=== PATIENT | female | born 1990 | race Two or more races ===

== ENCOUNTER 2018-05-22 14:05 | Emergency (ER) | payer BC ==
[~2018-05-22] VITALS: Ht 162.6 cm; Wt 68.0 kg
[2018-05-22] MEDS ORDERED: BUTORPHANOL 2 MG/ML VIAL. IV ONE (15:00)
[2018-05-22] MEDS ORDERED: diphenhydrAMINE 50 MG/ML VIAL IVP ONE (15:00)
[2018-05-22] MEDS ORDERED: METOCLOPRAMIDE HCL 10 MG/2 ML VIAL. IV ONE (15:00)
[2018-05-22] MEDS ORDERED: DEXAMETHASONE SOD PHOS 20 MG/5 ML VIAL. IV ONE (15:00)
[2018-05-22] MEDS ORDERED: IV NORMAL SALINE 500ML BAG 500 ML IV ONE (15:00)
[2018-05-22] MEDS ORDERED: SUMAtriptan SUCC 6 MG/0.5 ML VIAL. SQ ONE (15:00)
--- NOTE | 2018-05-22 16:08 | RAD ---
CT of the head without contrast, 05/22/2018: HISTORY: Worst headache ever The ventricles are within normal limits in size. There is no shift of the midline structures. There is no evidence of acute intracranial hemorrhage or mass effect. IMPRESSION: No acute intracranial abnormality is detected. RS Compliance Statement: One or more of the following individualized dose reduction techniques were utilized for this examination: 1. Automated exposure control 2. Adjustment of the mA and/or kV according to patient size 3. Use of iterative reconstruction technique Electronically signed by: Cedric Ortega MD (05/22/2018 4:03 PM) [facility]
--- NOTE | 2018-05-22 16:42 | PHYS DOC ---
Past Medical History Past Medical History: Hypothyroid Past Surgical History: No Surgical History Alcohol Use: None Drug Use: None Adult General Chief Complaint Chief Complaint: HEADACHE HPI HPI Patient is a 28-year-old female who presents with complaint of severe headache for the last 5 days. Patient states that the headache is waxed and waned and currently she rates the pain at a 7-8 out of 10. She states that at times sits between a 9 and 10 out of 10. She states that she has had some nausea and vomiting as well as photophobia. She also complains of phonophobia. She states that she has some ongoing upper back and neck pain. She describes the headache as throbbing in nature. Review of Systems Review of Systems Constitutional: Denies fever or chills [] Eyes: Denies change in visual acuity, redness, or eye pain [] Respiratory: Denies cough or shortness of breath [] Cardiovascular: No additional information not addressed in HPI [] GI: Denies abdominal pain. Complains of nausea and vomiting. [] Musculoskeletal: Complains of neck and upper back pain [] Neurologic: [place] of headache without focal weakness or sensory changes [] All other systems were reviewed and found to be within normal limits, except as documented in this note. Current Medications Current Medications Current Medications Medications (Trade) Dose Ordered Sig/[facility] Start Time Stop Time Status Last Admin Dose Admin Butorphanol Tartrate (Stadol) 1 mg 1X ONCE 05/22/18 15:00 05/22/18 15:12 DC 05/22/18 15:39 1 MG Dexamethasone Sodium Phosphate (Decadron) 10 mg 1X ONCE 05/22/18 15:00 05/22/18 15:12 DC 05/22/18 15:36 10 MG Diphenhydramine HCl (Benadryl) 25 mg 1X ONCE 05/22/18 15:00 05/22/18 15:12 DC 05/22/18 15:33 25 MG Metoclopramide HCl (Reglan Vial) 10 mg 1X ONCE 05/22/18 15:00 05/22/18 15:12 DC 05/22/18 15:34 10 MG Sodium Chloride 500 ml @ 500 mls/hr 1X ONCE 05/22/18 15:00 05/22/18 15:59 DC 05/22/18 15:35 500 MLS/HR Sumatriptan Succinate (Imitrex) 6 mg 1X ONCE 05/22/18 15:00 05/22/18 15:12 DC 05/22/18 15:41 6 MG Allergies Allergies Allergies Coded Allergies Type Severity Reaction Last Updated Verified No Known Drug Allergies 05/22/18 No Physical Exam Physical Exam Constitutional: Well developed, well nourished, in mild distress. [] HENT: Normocephalic, atraumatic, bilateral external ears normal, oropharynx moist, no oral exudates, nose normal. [] Eyes: PERRLA, EOMI, conjunctiva normal, no discharge. [] Neck: Normal range of motion, with bilateral suboccipital muscle tenderness and palpable spasm. [] Cardiovascular: Regular rate and rhythm[] Lungs & Thorax: Bilateral breath sounds clear to auscultation [] Abdomen: Bowel sounds normal, soft, no tenderness. [] Skin: Warm, dry, no erythema, no rash. [] Extremities: No tenderness, no cyanosis, no clubbing, ROM intact, no edema. [] Neurologic: Alert and oriented X 3, no focal deficits noted. [] Current Patient Data Vital Signs Vital Signs Date Time Temp Pulse Resp B/P (MAP) Pulse Ox O2 Delivery O2 Flow Rate FiO2 05/22/18 14:34 97.9 74 18 127/79 (95) 98 Room Air 97.9 Lab Values Laboratory Tests Test 05/22/18 14:30 POC Urine HCG, Qualitative Hcg negative (Negative) EKG EKG [] Radiology/Procedures Radiology/Procedures [] Impressions: CT of the head without contrast, 05/22/2018: HISTORY: Worst headache ever The ventricles are within normal limits in size. There is no shift of the midline structures. There is no evidence of acute intracranial hemorrhage or mass effect. IMPRESSION: No acute intracranial abnormality is detected. PQRS Compliance Statement: One or more of the following individualized dose reduction techniques were utilized for this examination: 1. Automated exposure control 2. Adjustment of the mA and/or kV according to patient size 3. Use of iterative reconstruction technique Electronically signed by: Cedirc Ortega MD (05/22/2018 4:03 PM) [facility] Course & Med Decision Making Course & Med Decision Making Pertinent Labs and Imaging studies reviewed. (See chart for details) [] Dragon Disclaimer Dragon Disclaimer This electronic medical record was generated, in whole or in part, using a voice recognition dictation system. Departure Departure Impression: Primary Impression: Migraine headache Disposition: HOME, SELF-CARE Condition: STABLE Referrals: UNKNOWN PCP NAME (PCP) Patient Instructions: Migraine Headache Scripts Ondansetron Hcl (ZOFRAN) 4 Mg Tablet 4 MG PO PRN TID PRN for NAUSEA, #15 nausea/vomiting Prov: MARY STEPHEN Jr. DO 05/22/18 Oxycodone/Apap 5-325 (PERCOCET 5-325 MG TABLET ) 1 Each Tablet 1 EACH PO Q6HRS PRN for PAIN, #12 TAB pain Prov: MARY STEPHEN Jr. DO 05/22/18 Problem Qualifiers Primary Impression: Migraine headache Migraine type: without aura Status migrainosus presence: with status migrainosus Intractability: not intractable Qualified Codes: G43.001 - Migraine without aura, not intractable, with status migrainosus AMRY STEPHEN Jr. DO May 22, 2018 16:42
[2018-05-22] MEDS ORDERED: ONDA4TAB7 PO (17:16)
[2018-05-22] MEDS ORDERED: OXYC1TAB15 PO (17:16)
[2018-05-22 17:18] VITALS: BP 113/64
[2018-05-22] MEDS ORDERED: SUMA100T3 PO (17:20)
== END 2018-05-22 17:31 | disposition home or self-care (01) ==
LOC: ER 14:05
DX: G43.001 Migraine without aura, not intractable, with status migrainosus (principal); R11.2 Nausea with vomiting, unspecified; H53.149 Visual discomfort, unspecified; M54.2 Cervicalgia; M54.6 Pain in thoracic spine; E03.9 Hypothyroidism, unspecified
CPT/HCPCS: 70450; 81025; 96361; 96372; 96374; 96375; 99284; J1100; J1200; J2765; J3030; J7040

== ENCOUNTER → 2020-01-25 | Outpatient (CLI) | payer BC ==
[~2020-01-25] MED LIST: ONDA4TAB7 PO; OXYC1TAB15 PO; SUMA100T3 PO
--- NOTE | 2020-01-25 18:04 | RAD ---
EXAM: ULTRASOUND-GUIDED THYROID FINE-NEEDLE ASPIRATION and core needle biopsy. HISTORY: Thyroid nodule. Ultrasound-guided biopsy is requested. FINDINGS: The procedure along with its risks and benefits were explained to the patient. They agreed to proceed. A timeout procedure was performed. Sonographic images of the thyroid gland were obtained. The solid target nodule in the right thyroid lobe was adequately visualized for biopsy. It is 1.1 cm long by 0.7 cm tall and 0.7 cm wide. The overlying skin was sterilely prepped and infiltrated with 1% lidocaine for local anesthesia. Under ultrasound guidance, 8 biopsy samples were obtained using a combination of five 25-gauge needles, two 18 gauge temno core and one rotex screw core biopsy. These were hand delivered to pathology who determined them adequate for diagnosis. A sterile dressing was placed. There were no immediate complications. IMPRESSION: 1. Successful ultrasound-guided fine-needle aspiration and core biopsy of the right thyroid nodule. Electronically signed by: Thiago Braga MD (01/25/2020 6:01 PM) [id number]
--- NOTE | 2020-01-29 16:08 | PATHOLOGY ---
Note [facility] Accession Number: [id number] TESTS RESULT FLAG UNITS REF RANGE LAB Clinician Provided Cytology Information No. of containers..01 Other (Miscellaneous) Source: R. THYROID DIAGNOSIS: R. THYROID INCONCLUSIVE. BETHESDA CATEGORY III. ATYPIA OF UNDETERMINED SIGNIFICANCE. RED BLOOD CELLS ARE PRESENT. THIS INTERPRETATION INCLUDES EVALUATION OF A CELL BLOCK. COMMENT, CELLULAR ASPIRATE WITH THYROID FOLLICULAR CELLS SOME WITH ATYPIA INTRACYTOPLASMIC INCLUSION AND OCCASIONAL GROVES. THE VIAL WILL BE SENT FOR MOLECULAR TESTING AND AN ADDITIONAL REPORT WILL FOLLOW. THIS CASE IS ALSO REVIEWED BY DR. CARLOS Storm. Pathologist ICD10: 02 R89.6 Signed out by: Juan M Oliver MD, Pathologist NPI- [id number] Performed by: Gretta Doss, Director Of Vocational Training ([facility]) Gross description: 01 30 ML, DOMINGO STRICKLAND, [id number] /LCS 01/28/2020 0816 Local FLAG LEGEND: L-Low Normal,H-High Normal,LL-Alert Low,HH-Alert High <-Panic Low,>-Panic High,A-Abnormal,AA-Critical Abnormal Performed at: [facility] [address] [place] [address] Gvaino Barnett MD, JO ANN [facility] [address] [place] [id number] Vince Juarez MD, Specimen Comment: A courtesy copy of this report has been sent to [phone] Specimen Comment: [id number], Specimen Comment: [id number] Specimen Comment: Report sent to ,DR BAIRES / DR PLATT Performed at: [address], [place], [place] [id number] MD Gavino Barnett MD Phone: [phone]
== END ==
LOC: US 12:39
PROVIDERS: ATTEND Surgery
DX: E04.1 Nontoxic single thyroid nodule (principal); E03.9 Hypothyroidism, unspecified; R89.6 Abnormal cytological findings in specimens from other organs, systems and tissues; Z79.899 Other long term (current) drug therapy
CPT/HCPCS: 10005; 60100; 60300; 76942

== ENCOUNTER → 2020-05-02 | Outpatient (CLI) | payer BC ==
[~2020-05-02] MED LIST changes: +CALC0.25 PO; +CALC500T31 PO; +CHOL40003 PO; +HYDR-2761 PO; +LEVO100T5 PO; +LEVO25TA4 PO; +MAGN400T44 PO
--- NOTE | 2020-05-03 14:37 | NUR ---
IP: Attempted to contact pt concerning COVID results. No answer. Left a voicemail to return the call. Also attempted to contact Dr. Figueroa. He is not continuity manager and will follow up on Tuesday.
--- NOTE | 2020-05-05 11:22 | NUR ---
Patient tested positive for Covid 19 @ [facility] with results back on 04/10/20. Patient only had mild non-respiratory symptoms starting 4 days prior to testing. Per phase III guidelines okay to proceed with surgery in 4 weeks. All info also verified with Krystal Garcia, surgical director. Spoke with patient and Amy at Dr Figueroa's office regarding the above. Also, called [facility] for copy of the result dated 04/10/20.
== END ==
LOC: LAB 10:15
PROVIDERS: ATTEND Surgery
DX: Z01.812 Encounter for preprocedural laboratory examination (principal); U07.1 COVID-19; E04.1 Nontoxic single thyroid nodule
CPT/HCPCS: U0003

== ENCOUNTER 2020-05-07 06:20 | Inpatient (IN) | payer BC ==
[2020-05-07] VITALS (9 sets, daily range): BP systolic 117–142; BP diastolic 71–86
[~2020-05-07] VITALS: Ht 160 cm; Wt 81.6 kg
[~2020-05-07 06:20] MED LIST changes: -CALC0.25 PO; -CALC500T31 PO; -HYDR-2761 PO; -LEVO100T5 PO; -MAGN400T44 PO
[2020-05-07] MEDS ORDERED: HYDROmorphone 2 MG/ML VIAL IV PRN (07:00)
[2020-05-07] MEDS ORDERED: ONDANSETRON PF 4 MG/2 ML VIAL. IV PRN (07:00)
[2020-05-07] MEDS ORDERED: IV RINGERS,LACTATED 1000ML 1,000 ML IV SCH (07:00)
[2020-05-07] MEDS ORDERED: fentaNYL PF VIAL 100 MCG/2 ML VIAL IV PRN (07:00)
[2020-05-07] MEDS ORDERED: ONDANSETRON PF 4 MG/2 ML VIAL. ONE (07:21)
[2020-05-07] MEDS ORDERED: DEXAMETHASONE SOD PHOS 4 MG/ML VIAL ONE (07:21)
[2020-05-07] MEDS ORDERED: LIDOCAINE 2% PF 5 ML VIAL. ONE (07:21)
[2020-05-07] MEDS ORDERED: PROPOFOL 10 MG/ML (20ML) VIAL. IV ONE (07:21)
[2020-05-07] MEDS ORDERED: SUCCINYLCHOLINE 200 MG/10 ML VIAL. ONE (07:22)
[2020-05-07] MEDS ORDERED: REMIFENTANIL 2 MG VIAL. IV ONE (07:23)
[2020-05-07] MEDS ORDERED: 0.9 % SODIUM CHLORIDE 20 ML VIAL. IJ ONE ×2 (07:24)
[2020-05-07] MEDS ORDERED: MIDAZOLAM HCL/PF 2 MG/2 ML VIAL. ONE (07:30)
[2020-05-07] MEDS ORDERED: fentaNYL PF VIAL 100 MCG/2 ML VIAL ONE ×2 (07:30→10:46)
[2020-05-07] MEDS ORDERED: SURGICEL HEMOSTAT 4X8 EACH. ONE (09:41)
[2020-05-07] MEDS ORDERED: SEVOFLURANE > 120 MINUTES. IH ONE (10:18)
--- NOTE | 2020-05-07 10:28 | PDOC4 ---
Operative Note Operative Note Operative Note: Preoperative Diagnosis: Right thyroid nodule Postoperative Diagnosis: Same Procedure: Total thyroidectomy with central compartment dissection Surgeon: Henry Fisheries Biologist: Michael Lizama Anesthesia: General EBL: 50 mL Specimen: Total thyroid to pathology, paratracheal and central compartment nodes to pathology Drains: None Complications: None Indication: The patient is a 30-year-old female who was referred with a right thyroid nodule. 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 The plan is to proceed with a right thyroidectomy with frozen section for confirmation and a probable total t hyroidectomy. The details and risks of surgery were discussed with the patient. The risks include bleeding, infection, recurrent laryngeal nerve injury, hypoparathyroidism, pain, voice changes, anesthetic risk, potential need for additional surgery procedure. She understands and would like to proceed. Description: The patient was taken to the operating room and placed supine in the operating table. General anesthesia was performed. The Nims device was assembled and the anterior neck was prepped and draped in a standard surgical manner. A curved collar incision was made 2 fingerbreadths above the sternal notch. Cautery dissection was carried down to the platysma. The platysma was opened and the [place] retractor was used for the remainder of the case. The strap muscle fascia was divided in the midline. We began mobilizing the right thyroid lobe freeing it away from the strap muscles. The vessels of the superior pole were dissected free, ligated with 2-0 Vicryl and divided. The harmonic scalpel assisted with some of this dissection. We were able to identify a glandular structure in the superior aspect of the dissection that seemed consistent with a parathyroid gland. This was left in situ. In a similar manner inferior polar vessels were ligated with 3-0 Vicryl and divided. We then mobilized the remainder of the thyroid lobe in a lateral to medial fashion. 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 The recurrent laryngeal nerve was identified and stimulated appropriately with the Nims device. The nerve was protected as we freed up the remainder of the thyroid lobe including the attachments to the trachea. The lobe and isthmus were then fully excised with a stitch marking the superior pole. 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 There were some central compartment lymph nodes and one paratracheal lymph node that were visible. These were sequentially harvested and sent as specimen. We then directed our attention to the left thyroid lobe. In a similar manner the strap muscles were freed from the thyroid gland. The superior and inferior polar vessels were taken down. The recurrent laryngeal nerve was identified and stimulated appropriately. There was a vessel close to the nerve that was ligated with 3-0 Vicryl, and care was taken to ensure that the nerve remained intact. The remainder of the thyroid attachments were divided and the lobe was sent to pathology. Hemostasis was good. The strap muscle fascia was approximated in the midline with 3-0 Vicryl. The platysma was reapproximated with 3-0 Vicryl. The skin was closed with 4-0 Monocryl and a sterile dressing was applied. The patient tolerated the procedure well and was sent to the recovery room in stable condition. At the end of the case all counts were correct. MICHAEL BAIRES MD May 07, 2020 10:28
[2020-05-07] MEDS: IV NORMAL SALINE 1000ML BAG 1,000 ML IV SCH (10:30)
[2020-05-07] MEDS ORDERED: ONDANSETRON PF 4 MG/2 ML VIAL. IVP PRN (10:30)
[2020-05-07] MEDS ORDERED: oxyCODONE/APAP 5/325 1 TAB TABLET PO PRN ×2 (10:30)
[2020-05-07] MEDS ORDERED: NALOXONE 0.4 MG/ML VIAL. IV PRN (10:30)
[2020-05-07] MEDS ORDERED: 0.9 % SODIUM CHLORIDE 10 ML DISP.SYRIN. IV PRN (10:30)
[2020-05-07] MEDS ORDERED: PROCHLORPERAZINE 10 MG/2 ML VIAL. ONE (10:42)
[2020-05-07] MEDS: PROCHLORPERAZINE 10 MG/2 ML VIAL. IV PRN ×2 (10:45→11:17)
[2020-05-07] MEDS: fentaNYL PF VIAL 100 MCG/2 ML VIAL IV PRN ×2 (10:47→11:08)
[2020-05-07] MEDS ORDERED: MORPHINE SULFATE 2 MG/ML VIAL. ONE (11:20)
[2020-05-07] MEDS: MORPHINE SULFATE 2 MG/ML VIAL. IV PRN ×2 (11:22→11:48)
[2020-05-07] MEDS: IV 1/2 NORMAL SALINE 1,000 ML IV SCH ×2 (15:23→23:00)
[2020-05-07] MEDS: HYDROmorphone 2 MG/ML VIAL IV PRN (15:23)
[2020-05-07] MEDS: HYDROcodone/APAP 5/325MG 1 TAB TABLET PO PRN ×2 (17:32→21:34)
[2020-05-07] MEDS ORDERED: diphenhydrAMINE HCL 25 MG CAPSULE PO ONE (18:30)
[2020-05-07] MEDS: ONDANSETRON PF 4 MG/2 ML VIAL. IVP PRN (18:39)
[2020-05-08] MEDS: HYDROmorphone 2 MG/ML VIAL IV PRN (02:14)
[2020-05-08 02:41] VITALS: BP 110/78
[2020-05-08] MEDS: HYDROcodone/APAP 5/325MG 1 TAB TABLET PO PRN ×3 (05:06→16:37)
[2020-05-08] MEDS: LEVOTHYROXINE 100 MCG TABLET PO SCH (05:06)
[2020-05-08 07:00] VITALS: BP 96/45
[2020-05-08] MEDS: CHOLECALCIFEROL (VITAMIN D3) 1,000 UNIT TABLET PO SCH (08:18)
[2020-05-08] MEDS: ONDANSETRON PF 4 MG/2 ML VIAL. IVP PRN ×2 (08:20→15:42)
--- NOTE | 2020-05-08 09:34 | NUR ---
SW following. Discussed with RN, pt from home, room air. Pt had surgery 05/07/20. RN advised no SW needs at this time, and anticipates pt will discharge home today with self care. SW will continue to follow.
--- NOTE | 2020-05-08 09:56 | PDOC ---
ZENY BURR OPERATIONS TRAINER 05/08/20 0956: SURGICAL PROGRESS NOTE DATE: 05/08/20 TIME: 09:53 Subjective throat pretty sore taking some liquids this AM Vital Signs Vital Signs Date Time Temp Pulse Resp B/P (MAP) Pulse Ox O2 Delivery O2 Flow Rate FiO2 05/08/20 07:00 97.9 76 16 96/45 (62) 96 Room Air 97.9 05/07/20 10:26 6 I&O Intake and Output 05/08/20 07:00 Intake Total 1720 ml Output Total 80 ml Balance 1640 ml Intake Oral 120 ml IV Total 1600 ml Output Urine Total 10 ml Emesis 20 ml Estimated Blood Loss 50 ml # Voids 7 General: Alert, Oriented X3, Cooperative HEENT: Other (minimal swelling, some bleeding under dressing noted, voice hoarse ) Labs Laboratory Tests Test 05/07/20 06:43 05/08/20 07:51 Bedside Urine HCG, Qualitative Hcg negative (Negative) Ionized Calcium 0.91 mmol/L (1.13-1.32) Laboratory Tests Test 05/08/20 07:51 Ionized Calcium 0.91 mmol/L (1.13-1.32) Assessment/Plan s/p total thyroidectomy slowly advance diet ca low, will add ca supplement fluids Justicifation of Admission Dx: Justifications for Admission: Justification of Admission Dx: Yes Comments: thyroid nodule ELLA BAIRES MD 05/08/20 1254: SURGICAL PROGRESS NOTE Assessment/Plan Agree with above ZENY BURR APRN May 08, 2020 09:56 ELLA BAIRES MD May 08, 2020 12:54
[2020-05-08] MEDS ORDERED: HYDR-2761 PO (09:58)
--- NOTE | 2020-05-08 10:02 | DISCH ---
DISCHARGE INSTRUCTIONS Condition on Discharge Condition on Discharge: Stable Activity After Discharge Activity Instructions for Disc: Resume previous activity Bathing Instructions: Shower-keep dressing dry Diet after Discharge Diet after Discharge: Regular Wound Incision Care Wound/Incision Care: Keep wound/cast CDI, Do not change dressing Contacting the after DC Call your doctor for: Concerns you may have Follow-Up Follow up with: Dr Figueroa 2 weeks, call to schedule [phone] ZENY BURR APRN May 08, 2020 10:02
[2020-05-08] MEDS: IV NORMAL SALINE 1000ML BAG 1,000 ML IV SCH (10:30)
[2020-05-08 11:00] VITALS: BP 102/52
[2020-05-08] MEDS: IV 1/2 NORMAL SALINE 1,000 ML IV SCH (11:30)
[2020-05-08] MEDS: CALCIUM CARBONATE 500 MG TABLET PO SCH ×2 (12:14→18:20)
[2020-05-08 15:00] VITALS: BP 118/77
[2020-05-08] MEDS ORDERED: CALCIUM GLUCONATE 2,000 MG in IV NORMAL SALINE 100ML 100 ML IV ONE (16:30)
[2020-05-08 16:48] LABS: CREATININE 0.8 mg/dL (0.6-1.0); GFR 83.1; POTASSIUM 3.1 mmol/L (3.5-5.1)
[2020-05-08] MEDS: NORMAL SALINE IV SCH (16:48)
[2020-05-08] MEDS: CALCIUM GLUCONATE IV SCH (16:48)
[2020-05-08 16:52] LABS: PHOSPHORUS 5.7 mg/dL (2.6-4.7)
[2020-05-08 19:00] VITALS: BP 115/73
--- NOTE | 2020-05-08 19:33 | NUR ---
Dr. Figueroa was paged and notified about patient complain of numbness and tingling of both hand and fingers, and numbness on face. Dr. Figueroa called back and ordered received. Dr. Landa was consulted.
[2020-05-08] MEDS: diphenhydrAMINE HCL 25 MG CAPSULE PO PRN (20:15)
[2020-05-08 23:15] VITALS: BP 109/52
[2020-05-09 03:00] VITALS: BP 114/70
[2020-05-09] MEDS: CALCIUM GLUCONATE IV SCH ×2 (05:54→19:54)
[2020-05-09] MEDS: LEVOTHYROXINE 100 MCG TABLET PO SCH (05:54)
[2020-05-09] MEDS: NORMAL SALINE IV SCH ×2 (05:54→19:54)
[2020-05-09 07:00] VITALS: BP 149/90
[2020-05-09] MEDS: HYDROcodone/APAP 5/325MG 1 TAB TABLET PO PRN ×2 (07:40→19:11)
--- NOTE | 2020-05-09 09:45 | NUR ---
SW following. Discussed with RN, pt from home, room air, clear liquid diet. RN advised no SW needs and anticipates possible discharge home with self care today. SW will continue to follow.
[2020-05-09] MEDS: CALCIUM CARBONATE 500 MG TABLET PO SCH ×3 (09:54→17:20)
[2020-05-09] MEDS: CHOLECALCIFEROL (VITAMIN D3) 1,000 UNIT TABLET PO SCH (09:54)
--- NOTE | 2020-05-09 10:10 | PDOC ---
ZENY BURR PATTERNMAKER P[employer]ER [employer] 05/09/20 1010: SURGICAL PROGRESS NOTE DATE: 05/09/20 TIME: 10:08 Subjective numbness better, still some tingling throat sore eating ok , small bites Vital Signs Vital Signs Date Time Temp Pulse Resp B/P (MAP) Pulse Ox O2 Delivery O2 Flow Rate FiO2 05/09/20 09:54 Room Air 05/09/20 07:00 98.7 73 18 149/90 (109) 97 98.7 05/08/20 08:05 6.0 I&O Intake and Output 05/09/20 07:00 Intake Total 2410 ml Balance 2410 ml Intake Oral 610 ml IV Total 900 ml Other 900 ml # Voids 1 General: Alert, Oriented X3, Cooperative HEENT: Other (some mild swelling to neck, incision intact) Labs Laboratory Tests Test 05/08/20 07:51 05/08/20 16:30 05/09/20 06:40 Ionized Calcium 0.91 mmol/L (1.13-1.32) 0.87 mmol/L (1.13-1.32) 1.01 mmol/L (1.13-1.32) Sodium Level 140 mmol/L (136-145) Potassium Level 3.1 mmol/L (3.5-5.1) Chloride Level 100 mmol/L (98-107) Carbon Dioxide Level 29 mmol/L (21-32) Anion Gap 11 (6-14) Blood Urea Nitrogen 8 mg/dL (7-20) Creatinine 0.8 mg/dL (0.6-1.0) Estimated GFR (Cockcroft-Gault) 83.1 Glucose Level 102 mg/dL (70-99) Calcium Level 7.0 mg/dL (8.5-10.1) Phosphorus Level 5.7 mg/dL (2.6-4.7) Laboratory Tests Test 05/08/20 16:30 05/09/20 06:40 Sodium Level 140 mmol/L (136-145) Potassium Level 3.1 mmol/L (3.5-5.1) Chloride Level 100 mmol/L (98-107) Carbon Dioxide Level 29 mmol/L (21-32) Anion Gap 11 (6-14) Blood Urea Nitrogen 8 mg/dL (7-20) Creatinine 0.8 mg/dL (0.6-1.0) Estimated GFR (Cockcroft-Gault) 83.1 Glucose Level 102 mg/dL (70-99) Calcium Level 7.0 mg/dL (8.5-10.1) Ionized Calcium 0.87 mmol/L (1.13-1.32) 1.01 mmol/L (1.13-1.32) Phosphorus Level 5.7 mg/dL (2.6-4.7) Assessment/Plan await neph consult labs reviewed Justicifation of Admission Dx: Justifications for Admission: Justification of Admission Dx: Yes ELLA BAIRES MD 05/09/20 1354: SURGICAL PROGRESS NOTE Assessment/Plan agree with above ZENY BURR APRN May 09, 2020 10:10 ELLA BAIRES MD May 09, 2020 13:54
[2020-05-09] MEDS: IV NORMAL SALINE 1000ML BAG 1,000 ML IV SCH (10:30)
[2020-05-09 10:42] VITALS: BP 135/84
[2020-05-09] MEDS: IV 1/2 NORMAL SALINE 1,000 ML IV SCH ×2 (12:30)
[2020-05-09 14:40] VITALS: BP 141/69
[2020-05-09] MEDS ORDERED: POTASSIUM CHLORIDE 20 MEQ TABLET.ER. PO ONE (16:15)
--- NOTE | 2020-05-09 16:21 | PDOC2 ---
CONSULT Date of Consult Date of Consult DATE: 05/09/20 TIME: 16:15 Reason for Consult Reason for Consult: LOW CA Referring Physician Referring Physician: VIRY Identification/Chief Complaint Chief Complaint SPASMS Source Source: Chart review, Patient History of Present Illness Reason for Visit: THIS IS A 30 YR OLD WITH A THYROID NODULE. 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 SUBSEQUENTLY UNDERWENT A TOTAL THYROIDECTOMY. POST OP SHE DEVELOPED NUMBNESS AND CRAMPING OF HER HANDS. NOTED TO BE HYPOCALCEMIC WITH IONIZED CA OF 0.91 AND SERUM CA OF 7.0. ALSO NOTED TO HAVE LOW K Past Surgical History Past Surgical History THYROIDECTOMY Family History Family History: Hypertension Social History No ALCOHOL: none Drugs: None Lives: with Family Current Medications Current Medications Current Medications Ondansetron HCl (Zofran) 4 mg PRN Q6HRS PRN IV NAUSEA/VOMITING; Start 05/07/20 at 07:00; Stop 05/08/20 at 06:59; Status DC Fentanyl Citrate (Fentanyl 2ml Vial) 25 mcg PRN Q5MIN PRN IV MILD PAIN 1-3; Start 05/07/20 at 07:00; Stop 05/08/20 at 06:59; Status DC Fentanyl Citrate (Fentanyl 2ml Vial) 50 mcg PRN Q5MIN PRN IV MODERATE TO SEVERE PAIN Last administered on 05/07/20at 11:08; Start 05/07/20 at 07:00; Stop 05/08/20 at 06:59; Status DC Morphine Sulfate (Morphine Sulfate) 1 mg PRN Q10MIN PRN IV SEVERE PAIN 7-10 Last administered on 05/07/20at 11:48; Start 05/07/20 at 07:00; Stop 05/08/20 at 06:59; Status DC Ringer's Solution 1,000 ml @ 30 mls/hr Q24H IV Last administered on 05/07/20at 07:07; Start 05/07/20 at 07:00; Stop 05/07/20 at 18:59; Status DC Hydromorphone HCl (Dilaudid) 0.5 mg PRN Q10MIN PRN IV SEV PAIN, Second choice; Start 05/07/20 at 07:00; Stop 05/08/20 at 06:59; Status DC Prochlorperazine Edisylate (Compazine) 5 mg PACU PRN PRN IV NAUSEA, MRX1 Last administered on 05/07/20at 11:17; Start 05/07/20 at 07:00; Stop 05/08/20 at 06:59; Status DC Cefazolin Sodium/ Dextrose 50 ml @ 100 mls/hr 1X PREOP PRN IV PRIOR TO PROCEDURE Last administered on 05/07/20at 07:34; Start 05/07/20 at 06:00; Stop 05/07/20 at 18:00; Status DC Dexamethasone Sodium Phosphate (Decadron) 4 mg STK-MED ONCE .ROUTE ; Start 05/07/20 at 07:21; Stop 05/07/20 at 07:21; Status DC Ondansetron HCl (Zofran) 4 mg STK-MED ONCE .ROUTE ; Start 05/07/20 at 07:21; Stop 05/07/20 at 07:21; Status DC Propofol (Diprivan) 200 mg STK-MED ONCE IV ; Start 05/07/20 at 07:21; Stop at 07:21; Status DC Lidocaine HCl (Lidocaine Pf 2% Vial) 5 ml STK-MED ONCE .ROUTE ; Start 05/07/20 at 07:21; Stop 05/07/20 at 07:21; Status DC Succinylcholine Chloride (Anectine) 200 mg STK-MED ONCE .ROUTE ; Start 05/07/20 at 07:22; Stop 05/07/20 at 07:22; Status DC Remifentanil HCl (Ultiva) 2 mg STK-MED ONCE IV ; Start 05/07/20 at 07:23; Stop 05/07/20 at 07:23; Status DC Sodium Chloride (SODIUM CHLORIDE 20ml) 20 ml STK-MED ONCE IJ ; Start 05/07/20 at 07:24; Stop 05/07/20 at 07:25; Status DC Sodium Chloride (SODIUM CHLORIDE 20ml) 20 ml STK-MED ONCE IJ ; Start 05/07/20 at 07:24; Stop 05/07/20 at 07:25; Status DC Fentanyl Citrate (Fentanyl 2ml Vial) 100 mcg STK-MED ONCE .ROUTE ; Start 05/07/20 at 07:30; Stop 05/07/20 at 07:30; Status DC Midazolam HCl (Versed) 2 mg STK-MED ONCE .ROUTE ; Start 05/07/20 at 07:30; Stop 05/07/20 at 07:30; Status DC Ephedrine Sulfate (Akovaz) 50 mg STK-MED ONCE .ROUTE ; Start 05/07/20 at 07:58; Stop 05/07/20 at 07:58; Status DC Cellulose (Surgicel Hemostat 4x8) 1 each STK-MED ONCE .ROUTE ; Start 05/07/20 at 09:41; Stop 05/07/20 at 09:41; Status DC Sevoflurane (Ultane) 90 ml STK-MED ONCE IH ; Start 05/07/20 at 10:18; Stop 05/07/20 at 10:18; Status DC Sodium Chloride (Normal Saline Flush) 3 ml QSHIFT PRN IV AFTER MEDS AND BLOOD DRAWS; Start 05/07/20 at 10:30 Sodium Chloride 1,000 ml @ 80 mls/hr [id number] IV Last administered on 05/07/20at 15:23; Start 05/07/20 at 10:30 Oxycodone/ Acetaminophen (Percocet 5/325) 1 tab PRN Q4HRS PRN PO MILD PAIN, 1ST CHOICE; Start 05/07/20 at 10:30; Stop 05/07/20 at 17:06; Status DC Oxycodone/ Acetaminophen (Percocet 5/325) 2 tab PRN Q4HRS PRN PO MODERATE PAIN, SEVERE PAIN; Start 05/07/20 at 10:30; Stop 05/07/20 at 17:06; Status DC Naloxone HCl (Narcan) 0.4 mg PRN Q2MIN PRN IV SEE INSTRUCTIONS; Start 05/07/20 at 10:30 Sodium Chloride 1,000 ml @ 25 mls/hr Q24H IV ; Start 05/07/20 at 10:30; Stop 05/09/20 at 14:39; Status DC Hydromorphone HCl (Dilaudid) 0.2 mg PRN Q1HR PRN IV PAIN Last administered on 05/08/20at 02:14; Start 05/07/20 at 10:30 Ondansetron HCl (Zofran) 4 mg PRN Q6HRS PRN IVP NAUESA, 1ST CHOICE Last administered on 05/07/20at 13:31; Start 05/07/20 at 10:30; Stop 05/07/20 at 18:24; Status DC Vitamin D (Vitamin D3) 1,000 unit DAILY PO Last administered on 05/09/20at 09:54; Start 05/08/20 at 09:00 Levothyroxine Sodium (Synthroid) 100 mcg DAILY06 PO Last administered on 05/09/20at 05:54; Start 05/08/20 at 06:00 Prochlorperazine Edisylate (Compazine) 10 mg STK-MED ONCE .ROUTE ; Start 05/07/20 at 10:42; Stop 05/07/20 at 10:42; Status DC Fentanyl Citrate (Fentanyl 2ml Vial) 100 mcg STK-MED ONCE .ROUTE ; Start 05/07/20 at 10:46; Stop 05/07/20 at 10:46; Status DC Morphine Sulfate (Morphine Sulfate) 2 mg STK-MED ONCE .ROUTE ; Start 05/07/20 at 11:20; Stop 05/07/20 at 11:20; Status DC Acetaminophen/ Hydrocodone Bitart (Lortab 5/325) 1 tab PRN Q4HRS PRN PO MODERATE PAIN Last administered on 05/07/20at 17:32; Start 05/07/20 at 17:00 Acetaminophen/ Hydrocodone Bitart (Lortab 5/325) 2 tab PRN Q4HRS PRN PO SEVERE PAIN Last administered on 05/09/20at 07:40; Start 05/07/20 at 17:15 Ondansetron HCl (Zofran) 4 mg PRN Q4HRS PRN IVP NAUESA, 1ST CHOICE Last administered on 05/08/20at 15:42; Start 05/07/20 at 18:30 Diphenhydramine HCl (Benadryl) 25 mg 1X ONCE PO Last administered on 05/07/20at 18:39; Start 05/07/20 at 18:30; Stop 05/07/20 at 18:31; Status DC Calcium Carbonate/ Glycine (Oscal) 500 mg TIDAFTMEAL PO Last administered on 05/09/20at 13:15; Start 05/08/20 at 13:00 Calcium Gluconate 2000 mg/Sodium Chloride 120 ml @ 75 mls/hr 1X ONCE IV ; Start 05/08/20 at 16:30; Stop 05/08/20 at 18:05; Status Cancel Calcium Gluconate 2000 mg/Sodium Chloride 1,020 ml @ 75 mls/hr [id number] IV Last administered on 05/09/20at 05:54; Start 05/08/20 at 17:00 Diphenhydramine HCl (Benadryl) 25 mg PRN QHS PRN PO INSOMNIA Last administered on 05/08/20at 20:15; Start 05/08/20 at 20:15 Active Scripts Active Hydrocodone-Apap 5-325 (Hydrocodone Bit/Acetaminophen) 1 Tab Tablet 1 Tab PO PRN Q4HRS PRN Reported Vitamin D3 (Cholecalciferol (Vitamin D3)) 100 Mcg Capsule 100 Mcg PO DAILY Levothyroxine Sodium 25 Mcg Tablet 25 Mcg PO DAILYAC Allergies Allergies: Coded Allergies: oxycodone (Verified Allergy, Intermediate, VOMITING, 05/07/20) ROS Review of System FULL ROS NEG EXCEPT IN HPI POST OP Physical Exam General: Alert, Oriented X3, Cooperative, No acute distress HEENT: Atraumatic, PERRLA Lungs: Clear to auscultation Heart: Regular rate Abdomen: Normal bowel sounds, Soft, No tenderness Extremities: No clubbing Skin: No breakdown Neuro: Normal speech, Sensation intact Psych/Mental Status: Mental status NL, Mood NL MUSCULOSKELETAL: No joint tenderness, No deformity, No swelling Vitals VITALS Vital Signs Date Time Temp Pulse Resp B/P (MAP) Pulse Ox O2 Delivery O2 Flow Rate FiO2 05/09/20 14:40 98.4 56 18 141/69 (93) 98 Room Air 98.4 05/09/20 07:35 6.0 Labs Labs Laboratory Tests Test 05/08/20 07:51 05/08/20 16:30 05/09/20 06:40 Ionized Calcium 0.91 mmol/L (1.13-1.32) 0.87 mmol/L (1.13-1.32) 1.01 mmol/L (1.13-1.32) Sodium Level 140 mmol/L (136-145) Potassium Level 3.1 mmol/L (3.5-5.1) Chloride Level 100 mmol/L (98-107) Carbon Dioxide Level 29 mmol/L (21-32) Anion Gap 11 (6-14) Blood Urea Nitrogen 8 mg/dL (7-20) Creatinine 0.8 mg/dL (0.6-1.0) Estimated GFR (Cockcroft-Gault) 83.1 Glucose Level 102 mg/dL (70-99) Calcium Level 7.0 mg/dL (8.5-10.1) Phosphorus Level 5.7 mg/dL (2.6-4.7) Laboratory Tests Test 05/08/20 16:30 05/09/20 06:40 Sodium Level 140 mmol/L (136-145) Potassium Level 3.1 mmol/L (3.5-5.1) Chloride Level 100 mmol/L (98-107) Carbon Dioxide Level 29 mmol/L (21-32) Anion Gap 11 (6-14) Blood Urea Nitrogen 8 mg/dL (7-20) Creatinine 0.8 mg/dL (0.6-1.0) Estimated GFR (Cockcroft-Gault) 83.1 Glucose Level 102 mg/dL (70-99) Calcium Level 7.0 mg/dL (8.5-10.1) Ionized Calcium 0.87 mmol/L (1.13-1.32) 1.01 mmol/L (1.13-1.32) Phosphorus Level 5.7 mg/dL (2.6-4.7) Assessment/Plan Assessment/Plan IMP HYPOCALCEMIA-SYMPTOMATIC HYPOKALEMIA S/P THYROIDECTOMY CARPOPEDAL SPASMS PLAN VIT D CALCIUM GTT REPLACE K D/W SURGERY MARIYA GARCÍA MD May 09, 2020 16:21
[2020-05-09 19:10] VITALS: BP 121/74
[2020-05-09 23:26] VITALS: BP 114/67
[2020-05-10] VITALS (7 sets, daily range): BP systolic 96–150; BP diastolic 61–74
[2020-05-10] MEDS: IV 1/2 NORMAL SALINE 1,000 ML IV SCH ×2 (01:00→13:30)
[2020-05-10] MEDS: HYDROcodone/APAP 5/325MG 1 TAB TABLET PO PRN ×3 (03:38→22:49)
[2020-05-10] MEDS: LEVOTHYROXINE 100 MCG TABLET PO SCH (06:23)
[2020-05-10 08:59] LABS: CREATININE 0.7 mg/dL (0.6-1.0); MAGNESIUM 1.5 mg/dL (1.8-2.4); PHOSPHORUS 5.5 mg/dL (2.6-4.7); POTASSIUM 3.4 mmol/L (3.5-5.1)
[2020-05-10] MEDS: ONDANSETRON PF 4 MG/2 ML VIAL. IVP PRN ×2 (09:10→14:12)
[2020-05-10] MEDS ORDERED: METOCLOPRAMIDE HCL 10 MG/2 ML VIAL. IVP ONE (09:30)
[2020-05-10] MEDS: CALCITRIOL 0.25 MCG CAPSULE. PO SCH (10:43)
[2020-05-10] MEDS: CALCIUM CARBONATE 500 MG TABLET PO SCH ×3 (10:43→17:45)
--- NOTE | 2020-05-10 13:10 | PDOC ---
SURGICAL PROGRESS NOTE DATE: 05/10/20 TIME: 13:08 Subjective Pt with c/o numbness and hands cramping, some nausea earlier but improved with meds Vital Signs Vital Signs Date Time Temp Pulse Resp B/P (MAP) Pulse Ox O2 Delivery O2 Flow Rate FiO2 05/10/20 11:00 97.8 72 16 122/63 (82) 94 Room Air 97.8 05/10/20 10:53 6.0 I&O Intake and Output 05/10/20 07:00 Intake Total 610 ml Balance 610 ml Intake Oral 610 ml # Voids 1 General: Alert, Oriented X3, Cooperative, mild distress HEENT: Atraumatic, Other (dressing intact, neck supple) Extremities: Other (hands cramping) Labs Laboratory Tests Test 05/08/20 16:30 05/09/20 06:40 05/10/20 07:46 05/10/20 09:35 Sodium Level 140 mmol/L (136-145) 137 mmol/L (136-145) Potassium Level 3.1 mmol/L (3.5-5.1) 3.4 mmol/L (3.5-5.1) Chloride Level 100 mmol/L (98-107) 98 mmol/L (98-107) Carbon Dioxide Level 29 mmol/L (21-32) 28 mmol/L (21-32) Anion Gap 11 (6-14) 11 (6-14) Blood Urea Nitrogen 8 mg/dL (7-20) 7 mg/dL (7-20) Creatinine 0.8 mg/dL (0.6-1.0) 0.7 mg/dL (0.6-1.0) Estimated GFR (Cockcroft-Gault) 83.1 97.0 Glucose Level 102 mg/dL (70-99) 100 mg/dL (70-99) Calcium Level 7.0 mg/dL (8.5-10.1) 7.0 mg/dL (8.5-10.1) Ionized Calcium 0.87 mmol/L (1.13-1.32) 1.01 mmol/L (1.13-1.32) 0.85 mmol/L (1.13-1.32) Phosphorus Level 5.7 mg/dL (2.6-4.7) 5.5 mg/dL (2.6-4.7) Magnesium Level 1.5 mg/dL (1.8-2.4) Laboratory Tests Test 05/10/20 07:46 05/10/20 09:35 Sodium Level 137 mmol/L (136-145) Potassium Level 3.4 mmol/L (3.5-5.1) Chloride Level 98 mmol/L (98-107) Carbon Dioxide Level 28 mmol/L (21-32) Anion Gap 11 (6-14) Blood Urea Nitrogen 7 mg/dL (7-20) Creatinine 0.7 mg/dL (0.6-1.0) Estimated GFR (Cockcroft-Gault) 97.0 Glucose Level 100 mg/dL (70-99) Calcium Level 7.0 mg/dL (8.5-10.1) Phosphorus Level 5.5 mg/dL (2.6-4.7) Magnesium Level 1.5 mg/dL (1.8-2.4) Ionized Calcium 0.85 mmol/L (1.13-1.32) Assessment/Plan s/p thyroidectomy ionized calcium lower, calcium gluconate infusing cont calcium replacement per renal and appreciate care. Will hold on d/c pending calcium stabilization. Justicifation of Admission Dx: Justifications for Admission: Justification of Admission Dx: Yes JULIO GILES MD May 10, 2020 13:10
[2020-05-10] MEDS ORDERED: MAGNESIUM SULFATE 2GM 50 ML IV ONE (15:30)
[2020-05-10] MEDS: CALCIUM GLUCONATE IV SCH (15:44)
[2020-05-10] MEDS: NORMAL SALINE IV SCH (15:44)
--- NOTE | 2020-05-10 15:45 | PDOC ---
Renal-Progress Notes Subjective Notes Notes HAVING WHOLE BODY TINGLING AND NUMBNESS History of Present Illness Hx of present illness STABLE Vitals Vitals Vital Signs Date Time Temp Pulse Resp B/P (MAP) Pulse Ox O2 Delivery O2 Flow Rate FiO2 05/10/20 11:53 94 Room Air 6.0 05/10/20 11:00 97.8 72 16 122/63 (82) 97.8 Weight Weight [ ] I.O. Intake and Output Intake and Output 05/10/20 07:00 Intake Total 610 ml Balance 610 ml Intake Oral 610 ml # Voids 1 Labs Labs Laboratory Tests Test 05/10/20 07:46 05/10/20 09:35 Sodium Level 137 mmol/L (136-145) Potassium Level 3.4 mmol/L (3.5-5.1) Chloride Level 98 mmol/L (98-107) Carbon Dioxide Level 28 mmol/L (21-32) Anion Gap 11 (6-14) Blood Urea Nitrogen 7 mg/dL (7-20) Creatinine 0.7 mg/dL (0.6-1.0) Estimated GFR (Cockcroft-Gault) 97.0 Glucose Level 100 mg/dL (70-99) Calcium Level 7.0 mg/dL (8.5-10.1) Phosphorus Level 5.5 mg/dL (2.6-4.7) Magnesium Level 1.5 mg/dL (1.8-2.4) Ionized Calcium 0.85 mmol/L (1.13-1.32) Review of Systems Constitutional: yes: weakness, alert, oriented Ears/Nose/Throat: Yes: no symptom reported Eyes: Yes: no symptom reported Pulmonary: Yes no symptom reported Cardiovascular: Yes no symptom reported Gastrointestional: Yes: no symptom reported Genitourinary: Yes: no symptom reported Musculoskeletal: Yes: no symptom reported Psychiatric/Neurological: Yes: numbness, tingling Endocrine: Yes: no symptom reported Physical Exam General Appearance: no apparent distress, febrile Skin: warm Respiratory: bilateral CTA Heart: S1S2, RRR Abdomen: soft, bowel sounds present Genitourinary: bladder flat Extremities: pulses present Neurology: alert, oriented Assessment Assessment IMP HYPOCALCEMIA-SYMPTOMATIC HYPOKALEMIA HYPOMAGNESEMIA S/P THYROIDECTOMY CARPOPEDAL SPASMS PLAN VIT D AND CALCIUM PO CALCIUM GTT REPLACE K AND MAG NEEDED D/W SURGERY MARIYA GARCÍA MD May 10, 2020 15:45
[2020-05-10] MEDS ORDERED: CALCIUM GLUCONATE 2,000 MG in IV NORMAL SALINE 100ML 100 ML IV ONE (16:00)
[2020-05-10] MEDS ORDERED: POTASSIUM CHLORIDE 20 MEQ TABLET.ER. PO ONE (16:00)
[2020-05-11] MEDS: IV 1/2 NORMAL SALINE 1,000 ML IV SCH ×2 (02:00→13:16)
[2020-05-11 02:53] VITALS: BP 98/61
[2020-05-11] MEDS: LEVOTHYROXINE 100 MCG TABLET PO SCH (06:00)
[2020-05-11 07:14] VITALS: BP 106/68
[2020-05-11] MEDS: NORMAL SALINE IV SCH ×2 (07:34→23:47)
[2020-05-11] MEDS: CALCIUM GLUCONATE IV SCH ×2 (07:34→23:47)
[2020-05-11] MEDS: CALCITRIOL 0.25 MCG CAPSULE. PO SCH (08:02)
[2020-05-11] MEDS: CALCIUM CARBONATE 500 MG TABLET PO SCH ×3 (08:02→17:38)
[2020-05-11 08:49] LABS: CALCIUM 7.9 mg/dL (8.5-10.1); CREATININE 0.7 mg/dL (0.6-1.0); MAGNESIUM 1.6 mg/dL (1.8-2.4); PHOSPHORUS 6.5 mg/dL (2.6-4.7); POTASSIUM 3.7 mmol/L (3.5-5.1)
[2020-05-11 10:38] VITALS: BP 131/94
[2020-05-11] MEDS: HYDROcodone/APAP 5/325MG 1 TAB TABLET PO PRN ×2 (11:54→22:27)
--- NOTE | 2020-05-11 13:47 | PDOC ---
SURGICAL PROGRESS NOTE DATE: 05/11/20 TIME: 13:44 Subjective Pt feels better today, but still with some numbness, mendez PO Vital Signs Vital Signs Date Time Temp Pulse Resp B/P (MAP) Pulse Ox O2 Delivery O2 Flow Rate FiO2 05/11/20 13:13 16 Room Air 05/11/20 10:38 98.8 65 131/94 (106) 93 98.8 05/10/20 11:53 6.0 I&O Intake and Output 05/11/20 07:00 Intake Total 1938.8 ml Output Total 300 ml Balance 1638.8 ml Intake Oral 800 ml IV Total 1138.8 ml Output Urine Total 300 ml # Voids 1 General: Alert, Oriented X3, Cooperative, No acute distress HEENT: Other (neck supple, dressing intact) Skin: Other (able to move hands today) Labs Laboratory Tests Test 05/10/20 07:46 05/10/20 09:35 05/11/20 07:59 Sodium Level 137 mmol/L (136-145) 138 mmol/L (136-145) Potassium Level 3.4 mmol/L (3.5-5.1) 3.7 mmol/L (3.5-5.1) Chloride Level 98 mmol/L (98-107) 99 mmol/L (98-107) Carbon Dioxide Level 28 mmol/L (21-32) 26 mmol/L (21-32) Anion Gap 11 (6-14) 13 (6-14) Blood Urea Nitrogen 7 mg/dL (7-20) 9 mg/dL (7-20) Creatinine 0.7 mg/dL (0.6-1.0) 0.7 mg/dL (0.6-1.0) Estimated GFR (Cockcroft-Gault) 97.0 97.0 Glucose Level 100 mg/dL (70-99) 98 mg/dL (70-99) Calcium Level 7.0 mg/dL (8.5-10.1) 7.9 mg/dL (8.5-10.1) Phosphorus Level 5.5 mg/dL (2.6-4.7) 6.5 mg/dL (2.6-4.7) Magnesium Level 1.5 mg/dL (1.8-2.4) 1.6 mg/dL (1.8-2.4) Ionized Calcium 0.85 mmol/L (1.13-1.32) 0.97 mmol/L (1.13-1.32) Laboratory Tests Test 05/11/20 07:59 Sodium Level 138 mmol/L (136-145) Potassium Level 3.7 mmol/L (3.5-5.1) Chloride Level 99 mmol/L (98-107) Carbon Dioxide Level 26 mmol/L (21-32) Anion Gap 13 (6-14) Blood Urea Nitrogen 9 mg/dL (7-20) Creatinine 0.7 mg/dL (0.6-1.0) Estimated GFR (Cockcroft-Gault) 97.0 Glucose Level 98 mg/dL (70-99) Calcium Level 7.9 mg/dL (8.5-10.1) Ionized Calcium 0.97 mmol/L (1.13-1.32) Phosphorus Level 6.5 mg/dL (2.6-4.7) Magnesium Level 1.6 mg/dL (1.8-2.4) Assessment/Plan s/p thyroidectomy cont calcium replacement, appreciate renal Justicifation of Admission Dx: Justifications for Admission: Justification of Admission Dx: Yes JULIO GILES MD May 11, 2020 13:47
[2020-05-11 14:25] VITALS: BP 137/82
--- NOTE | 2020-05-11 14:45 | PDOC ---
Renal-Progress Notes Subjective Notes Notes FEELING BETTER History of Present Illness Hx of present illness STABLE Vitals Vitals Vital Signs Date Time Temp Pulse Resp B/P (MAP) Pulse Ox O2 Delivery O2 Flow Rate FiO2 05/11/20 14:25 98.8 69 18 137/82 (100) 95 Room Air 98.8 05/10/20 11:53 6.0 Weight Weight [ ] I.O. Intake and Output Intake and Output 05/11/20 07:00 Intake Total 1938.8 ml Output Total 300 ml Balance 1638.8 ml Intake Oral 800 ml IV Total 1138.8 ml Output Urine Total 300 ml # Voids 1 Labs Labs Laboratory Tests Test 05/11/20 07:59 Sodium Level 138 mmol/L (136-145) Potassium Level 3.7 mmol/L (3.5-5.1) Chloride Level 99 mmol/L (98-107) Carbon Dioxide Level 26 mmol/L (21-32) Anion Gap 13 (6-14) Blood Urea Nitrogen 9 mg/dL (7-20) Creatinine 0.7 mg/dL (0.6-1.0) Estimated GFR (Cockcroft-Gault) 97.0 Glucose Level 98 mg/dL (70-99) Calcium Level 7.9 mg/dL (8.5-10.1) Ionized Calcium 0.97 mmol/L (1.13-1.32) Phosphorus Level 6.5 mg/dL (2.6-4.7) Magnesium Level 1.6 mg/dL (1.8-2.4) Review of Systems Constitutional: yes: weakness, alert, oriented Ears/Nose/Throat: Yes: no symptom reported Eyes: Yes: no symptom reported Pulmonary: Yes no symptom reported Cardiovascular: Yes no symptom reported Gastrointestional: Yes: no symptom reported Genitourinary: Yes: no symptom reported Musculoskeletal: Yes: no symptom reported Psychiatric/Neurological: Yes: numbness, tingling Endocrine: Yes: no symptom reported Physical Exam General Appearance: no apparent distress, febrile Skin: warm Respiratory: bilateral CTA Heart: S1S2, RRR Abdomen: soft, bowel sounds present Genitourinary: bladder flat Extremities: pulses present Neurology: alert, oriented Assessment Assessment IMP HYPOCALCEMIA-SYMPTOMATIC HYPOPARATHYROID HYPOKALEMIA HYPOMAGNESEMIA S/P THYROIDECTOMY CARPOPEDAL SPASMS PLAN CHECK PTH VIT D AND CALCIUM PO CALCIUM GTT REPLACE K AND MAG NEEDED D/W SURGERY MARIYA GARCÍA MD May 11, 2020 14:44
[2020-05-11] MEDS ORDERED: POTASSIUM CHLORIDE 20 MEQ TABLET.ER. PO ONE (15:30)
[2020-05-11] MEDS ORDERED: MAGNESIUM SULFATE 2GM 50 ML IV ONE (15:30)
[2020-05-11 19:00] VITALS: BP 139/86
[2020-05-11 23:09] VITALS: BP 139/74
[2020-05-12] MEDS: IV 1/2 NORMAL SALINE 1,000 ML IV SCH ×2 (03:00→08:26)
[2020-05-12 03:10] VITALS: BP 141/80
[2020-05-12] MEDS: LEVOTHYROXINE 100 MCG TABLET PO SCH (06:21)
[2020-05-12 07:26] VITALS: BP 126/79
[2020-05-12 08:07] LABS: CALCIUM 8.1 mg/dL (8.5-10.1); CREATININE 0.7 mg/dL (0.6-1.0); MAGNESIUM 1.7 mg/dL (1.8-2.4); PHOSPHORUS 6.8 mg/dL (2.6-4.7); POTASSIUM 3.9 mmol/L (3.5-5.1)
[2020-05-12] MEDS: HYDROcodone/APAP 5/325MG 1 TAB TABLET PO PRN ×2 (08:46→14:25)
[2020-05-12] MEDS: CALCIUM CARBONATE 500 MG TABLET PO SCH ×3 (08:46→16:22)
[2020-05-12] MEDS: CALCITRIOL 0.25 MCG CAPSULE. PO SCH (08:46)
--- NOTE | 2020-05-12 09:45 | PDOC ---
DATE OF SERVICE DATE: 05/12/20 TIME: 09:45 SUBJECTIVE ROS Pt reports she is feeling much better. No spasms, having tingling in LE only when she is sitting on the commode /. No N/V OBJECTIVE Vital Signs Vital Signs Date Time Temp Pulse Resp B/P (MAP) Pulse Ox O2 Delivery O2 Flow Rate FiO2 05/12/20 07:59 Room Air 05/12/20 07:26 98.5 70 18 126/79 (95) 94 98.5 I & 0 Intake and Output 05/12/20 07:00 Intake Total 2338 ml Balance 2338 ml Intake Oral 800 ml IV Total 1538 ml # Voids 3 PHYSICAL EXAM Physical Exam General Appearance: no apparent distress, febrile Skin: warm Respiratory: bilateral CTA Heart: S1S2, RRR Abdomen: soft, bowel sounds present Genitourinary: No ignacio Extremities: pulses present Neurology: alert, oriented DIAGNOSIS/ASSESSMENT Assessment & Plan Hypocalcemia - Present post Thyroidectomy , Symptomatic (Carpopedal spasms) , improving with IV and PO calcium Consider switching to higher dose of PO calcium tomorrow and monitor without IV Calcium, continue calcitriol, iPTH pending Hypokalemia- resolved HypoMg- Replace S/P Total Thyroidectomy on 05/07 -for right thyroid nodule. 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 On replacement, follow up per GS and primary COMMENT/RELEVANT DATA Meds Current Medications Medications (Trade) Dose Ordered Sig/Sarita Start Time Stop Time Status Last Admin Dose Admin Acetaminophen/ Hydrocodone Bitart (Lortab 5/325) 2 tab PRN Q4HRS PRN 05/07/20 17:15 05/10/20 10:53 2 TAB Calcitriol (Rocaltrol) 0.5 mcg DAILY 05/10/20 09:00 05/12/20 08:46 0.5 MCG Calcium Carbonate/ Glycine (Oscal) 500 mg TIDAFTMEAL 05/08/20 13:00 05/12/20 08:46 500 MG Calcium Gluconate 2000 mg/Sodium Chloride 120 ml @ 240 mls/hr 1X ONCE 05/10/20 16:00 05/10/20 16:29 DC 05/10/20 15:40 240 MLS/HR Calcium Gluconate 4000 mg/Sodium Chloride 1,040 ml @ 75 mls/hr [id number] 05/10/20 16:00 05/11/20 23:47 75 MLS/HR Cefazolin Sodium/ Dextrose 50 ml @ 100 mls/hr 1X PREOP PRN 05/07/20 06:00 05/07/20 18:00 DC 05/07/20 07:34 100 MLS/HR Cellulose (Surgicel Hemostat 4x8) 1 each STK-MED ONCE 05/07/20 09:41 05/07/20 09:41 DC Dexamethasone Sodium Phosphate (Decadron) 4 mg STK-MED ONCE 05/07/20 07:21 05/07/20 07:21 DC Diphenhydramine HCl (Benadryl) 25 mg PRN QHS PRN 05/08/20 20:15 05/08/20 20:15 25 MG Ephedrine Sulfate (Akovaz) 50 mg STK-MED ONCE 05/07/20 07:58 05/07/20 07:58 DC Fentanyl Citrate (Fentanyl 2ml Vial) 100 mcg STK-MED ONCE 05/07/20 10:46 05/07/20 10:46 DC Hydromorphone HCl (Dilaudid) 0.2 mg PRN Q1HR PRN 05/07/20 10:30 05/08/20 02:14 0.2 MG Levothyroxine Sodium (Synthroid) 100 mcg DAILY06 05/08/20 06:00 05/12/20 06:21 100 MCG Lidocaine HCl (Lidocaine Pf 2% Vial) 5 ml STK-MED ONCE 05/07/20 07:21 05/07/20 07:21 DC Magnesium Sulfate 50 ml @ 25 mls/hr 1X ONCE 05/11/20 15:30 05/11/20 17:29 DC 05/11/20 15:46 25 MLS/HR Metoclopramide HCl (Reglan Vial) 10 mg 1X ONCE 05/10/20 09:30 05/10/20 09:31 DC 05/10/20 09:35 10 MG Midazolam HCl (Versed) 2 mg STK-MED ONCE 05/07/20 07:30 05/07/20 07:30 DC Morphine Sulfate (Morphine Sulfate) 2 mg STK-MED ONCE 05/07/20 11:20 05/07/20 11:20 DC Naloxone HCl (Narcan) 0.4 mg PRN Q2MIN PRN 05/07/20 10:30 Ondansetron HCl (Zofran) 4 mg PRN Q4HRS PRN 05/07/20 18:30 05/10/20 14:12 4 MG Oxycodone/ Acetaminophen (Percocet 5/325) 2 tab PRN Q4HRS PRN 05/07/20 10:30 05/07/20 17:06 DC Potassium Chloride (Klor-Con) 40 meq 1X ONCE 05/11/20 15:30 05/11/20 15:31 DC 05/11/20 15:47 40 MEQ Prochlorperazine Edisylate (Compazine) 10 mg STK-MED ONCE 05/07/20 10:42 05/07/20 10:42 DC Propofol (Diprivan) 200 mg STK-MED ONCE 05/07/20 07:21 05/07/20 07:21 DC Remifentanil HCl (Ultiva) 2 mg STK-MED ONCE 05/07/20 07:23 05/07/20 07:23 DC Ringer's Solution 1,000 ml @ 30 mls/hr Q24H 05/07/20 07:00 05/07/20 18:59 DC 05/07/20 07:07 30 MLS/HR Sevoflurane (Ultane) 90 ml STK-MED ONCE 05/07/20 10:18 05/07/20 10:18 DC Sodium Chloride 1,000 ml @ 25 mls/hr Q24H 05/07/20 10:30 05/09/20 14:39 DC Sodium Chloride (Normal Saline Flush) 3 ml QSHIFT PRN 05/07/20 10:30 Sodium Chloride (SODIUM CHLORIDE 20ml) 20 ml STK-MED ONCE 05/07/20 07:24 05/07/20 07:25 DC Succinylcholine Chloride (Anectine) 200 mg STK-MED ONCE 05/07/20 07:22 05/07/20 07:22 DC Vitamin D (Vitamin D3) 1,000 unit DAILY 05/08/20 09:00 05/09/20 16:15 DC 05/09/20 09:54 1,000 UNIT Lab Laboratory Tests Test 05/12/20 06:15 Sodium Level 139 mmol/L (136-145) Potassium Level 3.9 mmol/L (3.5-5.1) Chloride Level 99 mmol/L (98-107) Carbon Dioxide Level 28 mmol/L (21-32) Anion Gap 12 (6-14) Blood Urea Nitrogen 7 mg/dL (7-20) Creatinine 0.7 mg/dL (0.6-1.0) Estimated GFR (Cockcroft-Gault) 97.0 Glucose Level 96 mg/dL (70-99) Calcium Level 8.1 mg/dL (8.5-10.1) Phosphorus Level 6.8 mg/dL (2.6-4.7) Magnesium Level 1.7 mg/dL (1.8-2.4) Results All relevant outside records, renal labs, imaging studies, telemetry/EKG's were reviewed. Justicifation of Admission Dx: Justifications for Admission: Justification of Admission Dx: Yes RAGHAVENDRA BECKWITH MD May 12, 2020 09:45
--- NOTE | 2020-05-12 09:57 | NUR ---
SW following. Discussed with RN, pt from home, room air, GI soft. Pt's labs are still not stable today. Anticipate discharge when pt's labs are better. RN advised no SW needs at this time. SW will continue to follow.
[2020-05-12] MEDS: CALCIUM GLUCONATE IV SCH (10:34)
[2020-05-12] MEDS: NORMAL SALINE IV SCH (10:34)
[2020-05-12 10:42] VITALS: BP 132/72
--- NOTE | 2020-05-12 11:31 | PDOC ---
ZENY BURR [employer] 05/12/20 1131: SURGICAL PROGRESS NOTE DATE: 05/12/20 TIME: 11:28 Subjective no tingling currently, overall minimal at this point some pain at incision site Vital Signs Vital Signs Date Time Temp Pulse Resp B/P (MAP) Pulse Ox O2 Delivery O2 Flow Rate FiO2 05/12/20 10:42 98.5 75 18 132/72 (92) 96 Room Air 98.5 I&O Intake and Output 05/12/20 07:00 Intake Total 2338 ml Balance 2338 ml Intake Oral 800 ml IV Total 1538 ml # Voids 3 General: Alert, Cooperative HEENT: Other (minimal swelling, incision intact, voice strong) Labs Laboratory Tests Test 05/11/20 07:59 05/12/20 06:15 Sodium Level 138 mmol/L (136-145) 139 mmol/L (136-145) Potassium Level 3.7 mmol/L (3.5-5.1) 3.9 mmol/L (3.5-5.1) Chloride Level 99 mmol/L (98-107) 99 mmol/L (98-107) Carbon Dioxide Level 26 mmol/L (21-32) 28 mmol/L (21-32) Anion Gap 13 (6-14) 12 (6-14) Blood Urea Nitrogen 9 mg/dL (7-20) 7 mg/dL (7-20) Creatinine 0.7 mg/dL (0.6-1.0) 0.7 mg/dL (0.6-1.0) Estimated GFR (Cockcroft-Gault) 97.0 97.0 Glucose Level 98 mg/dL (70-99) 96 mg/dL (70-99) Calcium Level 7.9 mg/dL (8.5-10.1) 8.1 mg/dL (8.5-10.1) Ionized Calcium 0.97 mmol/L (1.13-1.32) Phosphorus Level 6.5 mg/dL (2.6-4.7) 6.8 mg/dL (2.6-4.7) Magnesium Level 1.6 mg/dL (1.8-2.4) 1.7 mg/dL (1.8-2.4) Laboratory Tests Test 05/12/20 06:15 Sodium Level 139 mmol/L (136-145) Potassium Level 3.9 mmol/L (3.5-5.1) Chloride Level 99 mmol/L (98-107) Carbon Dioxide Level 28 mmol/L (21-32) Anion Gap 12 (6-14) Blood Urea Nitrogen 7 mg/dL (7-20) Creatinine 0.7 mg/dL (0.6-1.0) Estimated GFR (Cockcroft-Gault) 97.0 Glucose Level 96 mg/dL (70-99) Calcium Level 8.1 mg/dL (8.5-10.1) Phosphorus Level 6.8 mg/dL (2.6-4.7) Magnesium Level 1.7 mg/dL (1.8-2.4) Assessment/Plan appreciate renal assistance--home once stable, mag replacement, calcium replacement Justicifation of Admission Dx: Justifications for Admission: Justification of Admission Dx: Yes ELLA BAIRES MD 05/12/20 1436: SURGICAL PROGRESS NOTE Assessment/Plan Agree with above ZENY BURR APRN May 12, 2020 11:31 ELLA BAIRES MD May 12, 2020 14:36
[2020-05-12] MEDS ORDERED: MAGNESIUM SULFATE 2GM 50 ML IV ONE (13:00)
[2020-05-12 14:50] VITALS: BP 113/67
[2020-05-12] MEDS: ONDANSETRON PF 4 MG/2 ML VIAL. IVP PRN (17:38)
[2020-05-12 19:00] VITALS: BP 127/84
[2020-05-12 23:28] VITALS: BP 99/62
[2020-05-13 00:10] LABS: CALCIUM PTH 8.4 mg/dL (8.7-10.2); CREATININE PTH 0.71 mg/dL (0.57-1.00); PHOSPHORUS PTH 6.9 mg/dL (3.0-4.3); PTH INTACT 4 pg/mL (15-65)
[2020-05-13 03:00] VITALS: BP 110/61
--- NOTE | 2020-05-13 03:00 | NUR ---
pt. only took 1/2 of lortab pill this morning.
[2020-05-13] MEDS: HYDROcodone/APAP 5/325MG 1 TAB TABLET PO PRN ×2 (03:01→23:34)
[2020-05-13] MEDS: NORMAL SALINE IV SCH (03:01)
[2020-05-13] MEDS: CALCIUM GLUCONATE IV SCH (03:01)
[2020-05-13] MEDS: IV 1/2 NORMAL SALINE 1,000 ML IV SCH ×2 (04:00→08:12)
[2020-05-13] MEDS: LEVOTHYROXINE 100 MCG TABLET PO SCH (05:46)
[2020-05-13 07:00] VITALS: BP 114/70
[2020-05-13] MEDS: CALCIUM CARBONATE 500 MG TABLET PO SCH ×3 (08:23→16:17)
[2020-05-13] MEDS: CALCITRIOL 0.25 MCG CAPSULE. PO SCH (08:23)
--- NOTE | 2020-05-13 08:38 | PDOC ---
ZENY BURR COMPOUND MACHINE OPERATOR 05/13/20 0838: SURGICAL PROGRESS NOTE DATE: 05/13/20 TIME: 08:37 Subjective eating pain managed Vital Signs Vital Signs Date Time Temp Pulse Resp B/P (MAP) Pulse Ox O2 Delivery O2 Flow Rate FiO2 05/13/20 07:42 Room Air 05/13/20 07:00 98.1 77 16 114/70 (85) 97 98.1 I&O Intake and Output 05/13/20 07:00 Intake Total 300 ml Output Total 2 ml Balance 298 ml Intake Oral 300 ml Output Urine Total 2 ml General: Alert, Oriented X3, Cooperative HEENT: Other (incision intact, voice strong) Labs Laboratory Tests Test 05/12/20 06:15 Sodium Level 139 mmol/L (136-145) Potassium Level 3.9 mmol/L (3.5-5.1) Chloride Level 99 mmol/L (98-107) Carbon Dioxide Level 28 mmol/L (21-32) Anion Gap 12 (6-14) Blood Urea Nitrogen 7 mg/dL (7-20) Creatinine 0.7 mg/dL (0.6-1.0) Estimated GFR (Non- 113 (>59) Estimated GFR (Cockcroft-Gault) 97.0 Glucose Level 96 mg/dL (70-99) Calcium Level 8.1 mg/dL (8.5-10.1) Phosphorus Level 6.8 mg/dL (2.6-4.7) Magnesium Level 1.7 mg/dL (1.8-2.4) EGFR 130 (>59) PTH (Intact) Specimen Description Comment (.) Parathyroid Hormone (Intact) 4 pg/mL (15-65) Calcium (PTH Intact) 8.4 mg/dL (8.7-10.2) Creatinine (PTH Intact) 0.71 mg/dL (0.57-1.00) Phosphorus (PTH Intact) 6.9 mg/dL (3.0-4.3) Problem List await labs, renal recs Justicifation of Admission Dx: Justifications for Admission: Justification of Admission Dx: Yes ELLA BAIRES MD 05/13/20 6217: SURGICAL PROGRESS NOTE Assessment/Plan Above noted; path reviewed: 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 Separate focus of papillary in inferior right pole measuring 0.4 cm. 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 Margins negative for tumor. Lymph nodes negative for metastasis. The report noted two separate sections of parathyroid tissue in the right lobe, and one section of parathyroid tissue in the left lobe. 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 Likely to have one remaining parathyoid gland on the left. ZENY BURR APRN May 13, 2020 08:38 ELLA BAIRES MD May 13, 2020 14:37
[2020-05-13 09:04] LABS: ALBUMIN 3.6 g/dL (3.4-5.0); CALCIUM 8.6 mg/dL (8.5-10.1); CREATININE 0.7 mg/dL (0.6-1.0); PHOSPHORUS 6.1 mg/dL (2.6-4.7); POTASSIUM 3.9 mmol/L (3.5-5.1)
--- NOTE | 2020-05-13 10:33 | PDOC ---
DATE OF SERVICE DATE: 05/13/20 TIME: 10:31 SUBJECTIVE ROS Pt reports she is feeling much better. No spasms,no tingling, taking PO without any issues OBJECTIVE Vital Signs Vital Signs Date Time Temp Pulse Resp B/P (MAP) Pulse Ox O2 Delivery O2 Flow Rate FiO2 05/13/20 07:42 Room Air 05/13/20 07:00 98.1 77 16 114/70 (85) 97 98.1 I & 0 Intake and Output 05/13/20 07:00 Intake Total 300 ml Output Total 2 ml Balance 298 ml Intake Oral 300 ml Output Urine Total 2 ml PHYSICAL EXAM Physical Exam General Appearance: no apparent distress, febrile Skin: warm Respiratory: bilateral CTA Heart: S1S2, RRR Abdomen: soft, bowel sounds present Genitourinary: No ignacio Extremities: pulses present Neurology: alert, oriented DIAGNOSIS/ASSESSMENT Assessment & Plan Hypocalcemia - Present post Thyroidectomy , Symptomatic (Carpopedal spasms) ,requiring IV Ca Will dc IV Ca, Increase dose of PO Ca , Monitor , If stable probably can be dced tomorrow from renal standpoint. Will need close follow up with PCP PTH low @ 4, Check Vit D Hypokalemia- resolved HypoMg- Replace as indicated S/P Total Thyroidectomy on 05/07 -for right thyroid nodule. 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 On replacement, follow up per GS and primary COMMENT/RELEVANT DATA Meds Current Medications Medications (Trade) Dose Ordered Sig/Sarita Start Time Stop Time Status Last Admin Dose Admin Acetaminophen/ Hydrocodone Bitart (Lortab 5/325) 2 tab PRN Q4HRS PRN 05/07/20 17:15 05/10/20 10:53 2 TAB Calcitriol (Rocaltrol) 0.5 mcg DAILY 05/10/20 09:00 05/13/20 08:23 0.5 MCG Calcium Carbonate/ Glycine (Oscal) 500 mg [id number] 05/08/20 13:00 05/13/20 08:23 500 MG Calcium Gluconate 2000 mg/Sodium Chloride 120 ml @ 240 mls/hr 1X ONCE 05/10/20 16:00 05/10/20 16:29 DC 05/10/20 15:40 240 MLS/HR Calcium Gluconate 4000 mg/Sodium Chloride 1,040 ml @ 75 mls/hr [id number] 05/10/20 16:00 05/13/20 03:01 75 MLS/HR Cefazolin Sodium/ Dextrose 50 ml @ 100 mls/hr 1X PREOP PRN 05/07/20 06:00 05/07/20 18:00 DC 05/07/20 07:34 100 MLS/HR Cellulose (Surgicel Hemostat 4x8) 1 each STK-MED ONCE 05/07/20 09:41 05/07/20 09:41 DC Dexamethasone Sodium Phosphate (Decadron) 4 mg STK-MED ONCE 05/07/20 07:21 05/07/20 07:21 DC Diphenhydramine HCl (Benadryl) 25 mg PRN QHS PRN 05/08/20 20:15 05/08/20 20:15 25 MG Ephedrine Sulfate (Akovaz) 50 mg STK-MED ONCE 05/07/20 07:58 05/07/20 07:58 DC Fentanyl Citrate (Fentanyl 2ml Vial) 100 mcg STK-MED ONCE 05/07/20 10:46 05/07/20 10:46 DC Hydromorphone HCl (Dilaudid) 0.2 mg PRN Q1HR PRN 05/07/20 10:30 05/08/20 02:14 0.2 MG Levothyroxine Sodium (Synthroid) 100 mcg DAILY06 05/08/20 06:00 05/13/20 05:46 100 MCG Lidocaine HCl (Lidocaine Pf 2% Vial) 5 ml STK-MED ONCE 05/07/20 07:21 05/07/20 07:21 DC Magnesium Sulfate 50 ml @ 25 mls/hr 1X ONCE 05/12/20 13:00 05/12/20 14:59 DC 05/12/20 12:53 25 MLS/HR Metoclopramide HCl (Reglan Vial) 10 mg 1X ONCE 05/10/20 09:30 05/10/20 09:31 DC 05/10/20 09:35 10 MG Midazolam HCl (Versed) 2 mg STK-MED ONCE 05/07/20 07:30 05/07/20 07:30 DC Morphine Sulfate (Morphine Sulfate) 2 mg STK-MED ONCE 05/07/20 11:20 05/07/20 11:20 DC Naloxone HCl (Narcan) 0.4 mg PRN Q2MIN PRN 05/07/20 10:30 Ondansetron HCl (Zofran) 4 mg PRN Q4HRS PRN 05/07/20 18:30 05/12/20 17:38 4 MG Oxycodone/ Acetaminophen (Percocet 5/325) 2 tab PRN Q4HRS PRN 05/07/20 10:30 05/07/20 17:06 DC Potassium Chloride (Klor-Con) 40 meq 1X ONCE 05/11/20 15:30 05/11/20 15:31 DC 05/11/20 15:47 40 MEQ Prochlorperazine Edisylate (Compazine) 10 mg STK-MED ONCE 05/07/20 10:42 05/07/20 10:42 DC Propofol (Diprivan) 200 mg STK-MED ONCE 05/07/20 07:21 05/07/20 07:21 DC Remifentanil HCl (Ultiva) 2 mg STK-MED ONCE 05/07/20 07:23 05/07/20 07:23 DC Ringer's Solution 1,000 ml @ 30 mls/hr Q24H 05/07/20 07:00 05/07/20 18:59 DC 05/07/20 07:07 30 MLS/HR Sevoflurane (Ultane) 90 ml STK-MED ONCE 05/07/20 10:18 05/07/20 10:18 DC Sodium Chloride 1,000 ml @ 25 mls/hr Q24H 05/07/20 10:30 05/09/20 14:39 DC Sodium Chloride (Normal Saline Flush) 3 ml QSHIFT PRN 05/07/20 10:30 Sodium Chloride (SODIUM CHLORIDE 20ml) 20 ml STK-MED ONCE 05/07/20 07:24 05/07/20 07:25 DC Succinylcholine Chloride (Anectine) 200 mg STK-MED ONCE 05/07/20 07:22 05/07/20 07:22 DC Vitamin D (Vitamin D3) 1,000 unit DAILY 05/08/20 09:00 05/09/20 16:15 DC 05/09/20 09:54 1,000 UNIT Lab Laboratory Tests Test 05/13/20 07:45 Sodium Level 138 mmol/L (136-145) Potassium Level 3.9 mmol/L (3.5-5.1) Chloride Level 99 mmol/L (98-107) Carbon Dioxide Level 28 mmol/L (21-32) Anion Gap 11 (6-14) Blood Urea Nitrogen 10 mg/dL (7-20) Creatinine 0.7 mg/dL (0.6-1.0) Estimated GFR (Cockcroft-Gault) 97.0 Glucose Level 97 mg/dL (70-99) Calcium Level 8.6 mg/dL (8.5-10.1) Phosphorus Level 6.1 mg/dL (2.6-4.7) Albumin 3.6 g/dL (3.4-5.0) Results All relevant outside records, renal labs, imaging studies, telemetry/EKG's were reviewed. Justicifation of Admission Dx: Justifications for Admission: Justification of Admission Dx: Yes RAGHAVENDRA BECKWITH MD May 13, 2020 10:32
[2020-05-13 11:00] VITALS: BP 120/68
--- NOTE | 2020-05-13 11:11 | NUR ---
SS following up with discharge planning. SS reviewed pt chart and discussed with pt RN. Pt is currently on room air. No PT/OT needs. Discharge plan is to home when medically stable. Per RN, labs improving and pt switched to PO medications. No need for dialysis at this time per Nephrology. Possible discharge to home tomorrow. SS will continue to follow for discharge planning.
[2020-05-13 15:00] VITALS: BP 112/68
[2020-05-13 19:15] VITALS: BP 146/89
[2020-05-13 22:50] VITALS: BP 136/92
[2020-05-13] MEDS: diphenhydrAMINE HCL 25 MG CAPSULE PO PRN (23:39)
[2020-05-14] MEDS: ONDANSETRON PF 4 MG/2 ML VIAL. IVP PRN (00:58)
[2020-05-14 02:51] VITALS: BP 87/47
[2020-05-14] MEDS: LEVOTHYROXINE 100 MCG TABLET PO SCH (06:59)
[2020-05-14 07:00] VITALS: BP 106/67
[2020-05-14 07:41] LABS: CALCIUM 7.6 mg/dL (8.5-10.1); CREATININE 0.9 mg/dL (0.6-1.0); GFR 72.6; MAGNESIUM 1.7 mg/dL (1.8-2.4); POTASSIUM 3.9 mmol/L (3.5-5.1)
[2020-05-14] MEDS: CALCIUM CARBONATE 500 MG TABLET PO SCH ×3 (08:03→16:44)
[2020-05-14] MEDS: CALCITRIOL 0.25 MCG CAPSULE. PO SCH (08:04)
--- NOTE | 2020-05-14 08:29 | PDOC ---
ZENY BURR USER INTERFACE ARTIST 05/14/20 0829: SURGICAL PROGRESS NOTE DATE: 05/14/20 TIME: 08:28 Subjective no numbness or tingling tolerating diet Vital Signs Vital Signs Date Time Temp Pulse Resp B/P (MAP) Pulse Ox O2 Delivery O2 Flow Rate FiO2 05/14/20 07:27 Room Air 05/14/20 07:00 98.3 77 16 106/67 (80) 96 98.3 I&O Intake and Output 05/14/20 07:00 Intake Total 740 ml Balance 740 ml Intake Oral 740 ml # Voids 5 General: Alert, Oriented X3, Cooperative HEENT: Other (incision intact) Labs Laboratory Tests Test 05/13/20 07:45 05/14/20 06:59 Sodium Level 138 mmol/L (136-145) 138 mmol/L (136-145) Potassium Level 3.9 mmol/L (3.5-5.1) 3.9 mmol/L (3.5-5.1) Chloride Level 99 mmol/L (98-107) 100 mmol/L (98-107) Carbon Dioxide Level 28 mmol/L (21-32) 29 mmol/L (21-32) Anion Gap 11 (6-14) 9 (6-14) Blood Urea Nitrogen 10 mg/dL (7-20) 14 mg/dL (7-20) Creatinine 0.7 mg/dL (0.6-1.0) 0.9 mg/dL (0.6-1.0) Estimated GFR (Cockcroft-Gault) 97.0 72.6 Glucose Level 97 mg/dL (70-99) 91 mg/dL (70-99) Calcium Level 8.6 mg/dL (8.5-10.1) 7.6 mg/dL (8.5-10.1) Phosphorus Level 6.1 mg/dL (2.6-4.7) Albumin 3.6 g/dL (3.4-5.0) Magnesium Level 1.7 mg/dL (1.8-2.4) Laboratory Tests Test 05/14/20 06:59 Sodium Level 138 mmol/L (136-145) Potassium Level 3.9 mmol/L (3.5-5.1) Chloride Level 100 mmol/L (98-107) Carbon Dioxide Level 29 mmol/L (21-32) Anion Gap 9 (6-14) Blood Urea Nitrogen 14 mg/dL (7-20) Creatinine 0.9 mg/dL (0.6-1.0) Estimated GFR (Cockcroft-Gault) 72.6 Glucose Level 91 mg/dL (70-99) Calcium Level 7.6 mg/dL (8.5-10.1) Magnesium Level 1.7 mg/dL (1.8-2.4) Problem List ca low today, mag still low will await renal FU Justicifation of Admission Dx: Justifications for Admission: Justification of Admission Dx: Yes ELLA BAIRES MD 05/14/20 1047: SURGICAL PROGRESS NOTE Assessment/Plan Above noted, appreciated renal assistance; Ca supplementation ongoing ZENY BURR APRN May 14, 2020 08:29 ELLA BAIRES MD May 14, 2020 10:47
--- NOTE | 2020-05-14 09:12 | NUR ---
SW following. Discussed with RN, pt from home with , room air, GI soft. Pt's labs still unstable today. Surgery wanting to see what nephrology thinks with today's labs. RN advised no SW needs at this time. SW will continue to follow.
--- NOTE | 2020-05-14 10:23 | PDOC ---
DATE OF SERVICE DATE: 05/14/20 TIME: 10:22 SUBJECTIVE ROS stable OBJECTIVE Vital Signs Vital Signs Date Time Temp Pulse Resp B/P (MAP) Pulse Ox O2 Delivery O2 Flow Rate FiO2 05/14/20 07:27 Room Air 05/14/20 07:00 98.3 77 16 106/67 (80) 96 98.3 I & 0 Intake and Output 05/14/20 07:00 Intake Total 740 ml Balance 740 ml Intake Oral 740 ml # Voids 5 PHYSICAL EXAM Physical Exam General Appearance: no apparent distress, febrile Skin: warm Respiratory: bilateral CTA Heart: S1S2, RRR Abdomen: soft, bowel sounds present Genitourinary: No ignacio Extremities: pulses present Neurology: alert, oriented DIAGNOSIS/ASSESSMENT Assessment & Plan Hypocalcemia - Present post Thyroidectomy , Symptomatic (Carpopedal spasms) ,requiring IV Ca IV Ca dced 05/13 , PO Ca dose increased on 05/13, Ca mildly lower today than yesterday , asymptomatic Monitor, recheck in morning , continue calcitriol PTH low @ 4, Check Vit D Hypokalemia- resolved HypoMg- Replace PO S/P Total Thyroidectomy on 05/07 -for right thyroid nodule. 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 On replacement, follow up per GS and primary COMMENT/RELEVANT DATA Meds Current Medications Medications (Trade) Dose Ordered Sig/Sarita Start Time Stop Time Status Last Admin Dose Admin Acetaminophen/ Hydrocodone Bitart (Lortab 5/325) 2 tab PRN Q4HRS PRN 05/07/20 17:15 05/13/20 23:34 2 TAB Calcitriol (Rocaltrol) 0.5 mcg DAILY 05/10/20 09:00 05/14/20 08:04 0.5 MCG Calcium Carbonate/ Glycine (Oscal) 500 mg DAILYWLUN 05/13/20 12:00 05/13/20 11:06 500 MG Calcium Gluconate 2000 mg/Sodium Chloride 120 ml @ 240 mls/hr 1X ONCE 05/10/20 16:00 05/10/20 16:29 DC 05/10/20 15:40 240 MLS/HR Calcium Gluconate 4000 mg/Sodium Chloride 1,040 ml @ 75 mls/hr [id number] 05/10/20 16:00 05/13/20 10:34 DC 05/13/20 03:01 75 MLS/HR Cefazolin Sodium/ Dextrose 50 ml @ 100 mls/hr 1X PREOP PRN 05/07/20 06:00 05/07/20 18:00 DC 05/07/20 07:34 100 MLS/HR Cellulose (Surgicel Hemostat 4x8) 1 each STK-MED ONCE 05/07/20 09:41 05/07/20 09:41 DC Dexamethasone Sodium Phosphate (Decadron) 4 mg STK-MED ONCE 05/07/20 07:21 05/07/20 07:21 DC Diphenhydramine HCl (Benadryl) 25 mg PRN QHS PRN 05/08/20 20:15 05/13/20 23:39 25 MG Ephedrine Sulfate (Akovaz) 50 mg STK-MED ONCE 05/07/20 07:58 05/07/20 07:58 DC Fentanyl Citrate (Fentanyl 2ml Vial) 100 mcg STK-MED ONCE 05/07/20 10:46 05/07/20 10:46 DC Hydromorphone HCl (Dilaudid) 0.2 mg PRN Q1HR PRN 05/07/20 10:30 05/08/20 02:14 0.2 MG Levothyroxine Sodium (Synthroid) 100 mcg DAILY06 05/08/20 06:00 05/14/20 06:59 100 MCG Lidocaine HCl (Lidocaine Pf 2% Vial) 5 ml STK-MED ONCE 05/07/20 07:21 05/07/20 07:21 DC Magnesium Sulfate 50 ml @ 25 mls/hr 1X ONCE 05/12/20 13:00 05/12/20 14:59 DC 05/12/20 12:53 25 MLS/HR Metoclopramide HCl (Reglan Vial) 10 mg 1X ONCE 05/10/20 09:30 05/10/20 09:31 DC 05/10/20 09:35 10 MG Midazolam HCl (Versed) 2 mg STK-MED ONCE 05/07/20 07:30 05/07/20 07:30 DC Morphine Sulfate (Morphine Sulfate) 2 mg STK-MED ONCE 05/07/20 11:20 05/07/20 11:20 DC Naloxone HCl (Narcan) 0.4 mg PRN Q2MIN PRN 05/07/20 10:30 Ondansetron HCl (Zofran) 4 mg PRN Q4HRS PRN 05/07/20 18:30 05/14/20 00:58 4 MG Oxycodone/ Acetaminophen (Percocet 5/325) 2 tab PRN Q4HRS PRN 05/07/20 10:30 05/07/20 17:06 DC Potassium Chloride (Klor-Con) 40 meq 1X ONCE 05/11/20 15:30 05/11/20 15:31 DC 05/11/20 15:47 40 MEQ Prochlorperazine Edisylate (Compazine) 10 mg STK-MED ONCE 05/07/20 10:42 05/07/20 10:42 DC Propofol (Diprivan) 200 mg STK-MED ONCE 05/07/20 07:21 05/07/20 07:21 DC Remifentanil HCl (Ultiva) 2 mg STK-MED ONCE 05/07/20 07:23 05/07/20 07:23 DC Ringer's Solution 1,000 ml @ 30 mls/hr Q24H 05/07/20 07:00 05/07/20 18:59 DC 05/07/20 07:07 30 MLS/HR Sevoflurane (Ultane) 90 ml STK-MED ONCE 05/07/20 10:18 05/07/20 10:18 DC Sodium Chloride 1,000 ml @ 25 mls/hr Q24H 05/07/20 10:30 05/09/20 14:39 DC Sodium Chloride (Normal Saline Flush) 3 ml QSHIFT PRN 05/07/20 10:30 Sodium Chloride (SODIUM CHLORIDE 20ml) 20 ml STK-MED ONCE 05/07/20 07:24 05/07/20 07:25 DC Succinylcholine Chloride (Anectine) 200 mg STK-MED ONCE 05/07/20 07:22 05/07/20 07:22 DC Vitamin D (Vitamin D3) 1,000 unit DAILY 05/08/20 09:00 05/09/20 16:15 DC 05/09/20 09:54 1,000 UNIT Lab Laboratory Tests Test 05/14/20 06:59 Sodium Level 138 mmol/L (136-145) Potassium Level 3.9 mmol/L (3.5-5.1) Chloride Level 100 mmol/L (98-107) Carbon Dioxide Level 29 mmol/L (21-32) Anion Gap 9 (6-14) Blood Urea Nitrogen 14 mg/dL (7-20) Creatinine 0.9 mg/dL (0.6-1.0) Estimated GFR (Cockcroft-Gault) 72.6 Glucose Level 91 mg/dL (70-99) Calcium Level 7.6 mg/dL (8.5-10.1) Magnesium Level 1.7 mg/dL (1.8-2.4) Results All relevant outside records, renal labs, imaging studies, telemetry/EKG's were reviewed. Justicifation of Admission Dx: Justifications for Admission: Justification of Admission Dx: Yes RAGHAVENDRA BECKWITH MD May 14, 2020 10:23
[2020-05-14 10:53] VITALS: BP 91/52
[2020-05-14] MEDS: MAGNESIUM OXIDE 400 MG TABLET PO SCH ×2 (12:59→20:17)
[2020-05-14 15:57] VITALS: BP 104/44
[2020-05-14 19:00] VITALS: BP 104/69
[2020-05-14 23:00] VITALS: BP 127/87
[2020-05-14] MEDS: HYDROcodone/APAP 5/325MG 1 TAB TABLET PO PRN (23:20)
[2020-05-15] MEDS: HYDROcodone/APAP 5/325MG 1 TAB TABLET PO PRN ×2 (02:17→21:08)
[2020-05-15] MEDS: ONDANSETRON PF 4 MG/2 ML VIAL. IVP PRN (02:20)
[2020-05-15] MEDS: diphenhydrAMINE HCL 25 MG CAPSULE PO PRN (02:20)
[2020-05-15 03:00] VITALS: BP 98/52
[2020-05-15] MEDS: LEVOTHYROXINE 100 MCG TABLET PO SCH (05:32)
[2020-05-15 07:00] VITALS: BP 112/62
[2020-05-15 07:45] LABS: ALBUMIN 3.9 g/dL (3.4-5.0); CALCIUM 7.8 mg/dL (8.5-10.1); CREATININE 0.8 mg/dL (0.6-1.0); GFR 83.1; PHOSPHORUS 6.1 mg/dL (2.6-4.7); POTASSIUM 3.8 mmol/L (3.5-5.1)
[2020-05-15] MEDS: CALCITRIOL 0.25 MCG CAPSULE. PO SCH (08:16)
[2020-05-15] MEDS: MAGNESIUM OXIDE 400 MG TABLET PO SCH ×3 (08:16→21:07)
[2020-05-15] MEDS: CALCIUM CARBONATE 500 MG TABLET PO SCH ×3 (08:16→21:09)
--- NOTE | 2020-05-15 08:35 | PDOC ---
ZENY BURR BIOINFORMATICS TECHNICIAN 05/15/20 0835: SURGICAL PROGRESS NOTE DATE: 05/15/20 TIME: 08:34 Subjective no numbness tired Vital Signs Vital Signs Date Time Temp Pulse Resp B/P (MAP) Pulse Ox O2 Delivery O2 Flow Rate FiO2 05/15/20 07:00 97.9 64 18 112/62 (79) 98 Room Air 97.9 I&O Intake and Output 05/15/20 07:00 Intake Total 490 ml Balance 490 ml Intake Oral 490 ml # Voids 3 General: Alert, Oriented X3, Cooperative HEENT: Other (incision intact) Labs Laboratory Tests Test 05/14/20 06:59 05/15/20 06:00 Sodium Level 138 mmol/L (136-145) 138 mmol/L (136-145) Potassium Level 3.9 mmol/L (3.5-5.1) 3.8 mmol/L (3.5-5.1) Chloride Level 100 mmol/L (98-107) 100 mmol/L (98-107) Carbon Dioxide Level 29 mmol/L (21-32) 30 mmol/L (21-32) Anion Gap 9 (6-14) 8 (6-14) Blood Urea Nitrogen 14 mg/dL (7-20) 15 mg/dL (7-20) Creatinine 0.9 mg/dL (0.6-1.0) 0.8 mg/dL (0.6-1.0) Estimated GFR (Cockcroft-Gault) 72.6 83.1 Glucose Level 91 mg/dL (70-99) 85 mg/dL (70-99) Calcium Level 7.6 mg/dL (8.5-10.1) 7.8 mg/dL (8.5-10.1) Magnesium Level 1.7 mg/dL (1.8-2.4) 2.0 mg/dL (1.8-2.4) Ionized Calcium 0.98 mmol/L (1.13-1.32) Phosphorus Level 6.1 mg/dL (2.6-4.7) Albumin 3.9 g/dL (3.4-5.0) Laboratory Tests Test 05/15/20 06:00 Sodium Level 138 mmol/L (136-145) Potassium Level 3.8 mmol/L (3.5-5.1) Chloride Level 100 mmol/L (98-107) Carbon Dioxide Level 30 mmol/L (21-32) Anion Gap 8 (6-14) Blood Urea Nitrogen 15 mg/dL (7-20) Creatinine 0.8 mg/dL (0.6-1.0) Estimated GFR (Cockcroft-Gault) 83.1 Glucose Level 85 mg/dL (70-99) Calcium Level 7.8 mg/dL (8.5-10.1) Ionized Calcium 0.98 mmol/L (1.13-1.32) Phosphorus Level 6.1 mg/dL (2.6-4.7) Magnesium Level 2.0 mg/dL (1.8-2.4) Albumin 3.9 g/dL (3.4-5.0) Assessment/Plan labs reviewed await renal input Justicifation of Admission Dx: Justifications for Admission: Justification of Admission Dx: Yes ELLA BAIRES MD 05/15/20 1527: SURGICAL PROGRESS NOTE Assessment/Plan Agree with above ZENY BURR APRN May 15, 2020 08:35 ELLA BAIRES MD May 15, 2020 15:27
--- NOTE | 2020-05-15 09:10 | NUR ---
SW following. Discussed with RN, pt from home with , room air, GI soft. Nephrology still monitoring labs. Possible discharge home today if okay with renal. No SW needs.
--- NOTE | 2020-05-15 09:13 | PDOC ---
DATE OF SERVICE DATE: 05/15/20 TIME: 09:13 SUBJECTIVE ROS stable , Occ tingling in both hands OBJECTIVE Vital Signs Vital Signs Date Time Temp Pulse Resp B/P (MAP) Pulse Ox O2 Delivery O2 Flow Rate FiO2 05/15/20 07:00 97.9 64 18 112/62 (79) 98 Room Air 97.9 I & 0 Intake and Output 05/15/20 07:00 Intake Total 490 ml Balance 490 ml Intake Oral 490 ml # Voids 3 PHYSICAL EXAM Physical Exam General Appearance: no apparent distress, febrile Skin: warm Respiratory: bilateral CTA Heart: S1S2, RRR Abdomen: soft, bowel sounds present Genitourinary: No ignacio Extremities: pulses present Neurology: alert, oriented DIAGNOSIS/ASSESSMENT Assessment & Plan Hypocalcemia - Present post Thyroidectomy , Symptomatic (Carpopedal spasms) ,requiring IV Ca IV Ca dced 05/13 , Increase PO Ca and calcitriol dose PTH low @ 4, Check Vit D Hypokalemia- resolved HypoMg- On PO , Monitor S/P Total Thyroidectomy on 05/07 -for right thyroid nodule. Her evaluation i ncluded genetic testing which was positive for BRAF mutation consistent with malignancy. On replacement, follow up per GS and primary COMMENT/RELEVANT DATA Meds Current Medications Medications (Trade) Dose Ordered Sig/Sarita Start Time Stop Time Status Last Admin Dose Admin Acetaminophen/ Hydrocodone Bitart (Lortab 5/325) 2 tab PRN Q4HRS PRN 05/07/20 17:15 05/13/20 23:34 2 TAB Calcitriol (Rocaltrol) 0.5 mcg DAILY 05/10/20 09:00 05/15/20 08:16 0.5 MCG Calcium Carbonate/ Glycine (Oscal) 500 mg DAILYWLUN 05/13/20 12:00 05/14/20 11:47 500 MG Calcium Gluconate 2000 mg/Sodium Chloride 120 ml @ 240 mls/hr 1X ONCE 05/10/20 16:00 05/10/20 16:29 DC 05/10/20 15:40 240 MLS/HR Calcium Gluconate 4000 mg/Sodium Chloride 1,040 ml @ 75 mls/hr [id number] 05/10/20 16:00 05/13/20 10:34 DC 05/13/20 03:01 75 MLS/HR Cefazolin Sodium/ Dextrose 50 ml @ 100 mls/hr 1X PREOP PRN 05/07/20 06:00 05/07/20 18:00 DC 05/07/20 07:34 100 MLS/HR Cellulose (Surgicel Hemostat 4x8) 1 each STK-MED ONCE 05/07/20 09:41 05/07/20 09:41 DC Dexamethasone Sodium Phosphate (Decadron) 4 mg STK-MED ONCE 05/07/20 07:21 05/07/20 07:21 DC Diphenhydramine HCl (Benadryl) 25 mg PRN QHS PRN 05/08/20 20:15 05/15/20 02:20 25 MG Ephedrine Sulfate (Akovaz) 50 mg STK-MED ONCE 05/07/20 07:58 05/07/20 07:58 DC Fentanyl Citrate (Fentanyl 2ml Vial) 100 mcg STK-MED ONCE 05/07/20 10:46 05/07/20 10:46 DC Hydromorphone HCl (Dilaudid) 0.2 mg PRN Q1HR PRN 05/07/20 10:30 05/08/20 02:14 0.2 MG Levothyroxine Sodium (Synthroid) 100 mcg DAILY06 05/08/20 06:00 05/15/20 05:32 100 MCG Lidocaine HCl (Lidocaine Pf 2% Vial) 5 ml STK-MED ONCE 05/07/20 07:21 05/07/20 07:21 DC Magnesium Oxide (Magnesium Oxide) 400 mg TID 05/14/20 14:00 05/15/20 08:16 400 MG Magnesium Sulfate 50 ml @ 25 mls/hr 1X ONCE 05/12/20 13:00 05/12/20 14:59 DC 05/12/20 12:53 25 MLS/HR Metoclopramide HCl (Reglan Vial) 10 mg 1X ONCE 05/10/20 09:30 05/10/20 09:31 DC 05/10/20 09:35 10 MG Midazolam HCl (Versed) 2 mg STK-MED ONCE 05/07/20 07:30 05/07/20 07:30 DC Morphine Sulfate (Morphine Sulfate) 2 mg STK-MED ONCE 05/07/20 11:20 05/07/20 11:20 DC Naloxone HCl (Narcan) 0.4 mg PRN Q2MIN PRN 05/07/20 10:30 Ondansetron HCl (Zofran) 4 mg PRN Q4HRS PRN 05/07/20 18:30 05/15/20 02:20 4 MG Oxycodone/ Acetaminophen (Percocet 5/325) 2 tab PRN Q4HRS PRN 05/07/20 10:30 05/07/20 17:06 DC Potassium Chloride (Klor-Con) 40 meq 1X ONCE 05/11/20 15:30 05/11/20 15:31 DC 05/11/20 15:47 40 MEQ Prochlorperazine Edisylate (Compazine) 10 mg STK-MED ONCE 05/07/20 10:42 05/07/20 10:42 DC Propofol (Diprivan) 200 mg STK-MED ONCE 05/07/20 07:21 05/07/20 07:21 DC Remifentanil HCl (Ultiva) 2 mg STK-MED ONCE 05/07/20 07:23 05/07/20 07:23 DC Ringer's Solution 1,000 ml @ 30 mls/hr Q24H 05/07/20 07:00 05/07/20 18:59 DC 05/07/20 07:07 30 MLS/HR Sevoflurane (Ultane) 90 ml STK-MED ONCE 05/07/20 10:18 05/07/20 10:18 DC Sodium Chloride 1,000 ml @ 25 mls/hr Q24H 05/07/20 10:30 05/09/20 14:39 DC Sodium Chloride (Normal Saline Flush) 3 ml QSHIFT PRN 05/07/20 10:30 Sodium Chloride (SODIUM CHLORIDE 20ml) 20 ml STK-MED ONCE 05/07/20 07:24 05/07/20 07:25 DC Succinylcholine Chloride (Anectine) 200 mg STK-MED ONCE 05/07/20 07:22 05/07/20 07:22 DC Vitamin D (Vitamin D3) 1,000 unit DAILY 05/08/20 09:00 05/09/20 16:15 DC 05/09/20 09:54 1,000 UNIT Lab Laboratory Tests Test 05/15/20 06:00 Sodium Level 138 mmol/L (136-145) Potassium Level 3.8 mmol/L (3.5-5.1) Chloride Level 100 mmol/L (98-107) Carbon Dioxide Level 30 mmol/L (21-32) Anion Gap 8 (6-14) Blood Urea Nitrogen 15 mg/dL (7-20) Creatinine 0.8 mg/dL (0.6-1.0) Estimated GFR (Cockcroft-Gault) 83.1 Glucose Level 85 mg/dL (70-99) Calcium Level 7.8 mg/dL (8.5-10.1) Ionized Calcium 0.98 mmol/L (1.13-1.32) Phosphorus Level 6.1 mg/dL (2.6-4.7) Magnesium Level 2.0 mg/dL (1.8-2.4) Albumin 3.9 g/dL (3.4-5.0) Results All relevant outside records, renal labs, imaging studies, telemetry/EKG's were reviewed. Justicifation of Admission Dx: Justifications for Admission: Justification of Admission Dx: Yes RAGHAVENDRA BECKWITH MD May 15, 2020 09:13
[2020-05-15 11:00] VITALS: BP 128/66
[2020-05-15 15:00] VITALS: BP 116/71
[2020-05-15 19:15] VITALS: BP 116/67
[2020-05-15 23:07] VITALS: BP 128/83
[2020-05-16 03:01] VITALS: BP 83/52
[2020-05-16] MEDS: LEVOTHYROXINE 100 MCG TABLET PO SCH (05:31)
[2020-05-16 06:29] LABS: ALBUMIN 3.6 g/dL (3.4-5.0); ALBUMIN/GLOBULIN RATIO 0.9 (1.0-1.7); CALCIUM 7.7 mg/dL (8.5-10.1); CREATININE 0.9 mg/dL (0.6-1.0); GFR 72.6; MAGNESIUM 2.1 mg/dL (1.8-2.4); POTASSIUM 3.8 mmol/L (3.5-5.1); TOTAL BILIRUBIN 0.4 mg/dL (0.2-1.0); TOTAL PROTEIN 7.4 g/dL (6.4-8.2)
[2020-05-16 07:00] VITALS: BP 113/63
[2020-05-16] MEDS: MAGNESIUM OXIDE 400 MG TABLET PO SCH ×3 (08:05→20:11)
[2020-05-16] MEDS: CALCITRIOL 0.25 MCG CAPSULE. PO SCH (08:05)
[2020-05-16] MEDS: CALCIUM CARBONATE 500 MG TABLET PO SCH ×3 (08:06→20:11)
--- NOTE | 2020-05-16 09:05 | NUR ---
SW following. Discussed with RN, pt from home, room air, GI soft. Labs still unstable today. Pt will discharge home with self care when medically stable. No SW needs. SW will continue to follow.
--- NOTE | 2020-05-16 09:28 | PDOC ---
DATE OF SERVICE DATE: 05/16/20 TIME: 09:27 SUBJECTIVE ROS stable , Occ tingling in both hands OBJECTIVE Vital Signs Vital Signs Date Time Temp Pulse Resp B/P (MAP) Pulse Ox O2 Delivery O2 Flow Rate FiO2 05/16/20 07:00 98.4 72 16 113/63 (80) 99 Room Air 98.4 05/15/20 22:08 6.0 I & 0 Intake and Output 05/16/20 07:00 Intake Total 240 ml Balance 240 ml Intake Oral 240 ml # Voids 4 PHYSICAL EXAM Physical Exam General Appearance: no apparent distress, febrile Skin: warm Respiratory: bilateral CTA Heart: S1S2, RRR Abdomen: soft, bowel sounds present Genitourinary: No ignacio Extremities: pulses present Neurology: alert, oriented DIAGNOSIS/ASSESSMENT Assessment & Plan Hypocalcemia - Present post Thyroidectomy , Symptomatic (Carpopedal spasms) ,re quiring IV Ca IV Ca dced 05/13 , Increased PO Ca and calcitriol dose on 05/15 , monitor PTH low @ 4, Check Vit D Hypokalemia- resolved HypoMg- On PO , Monitor S/P Total Thyroidectomy on 05/07 -for right thyroid nodule. 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 On replacement, follow up per GS and primary COMMENT/RELEVANT DATA Meds Current Medications Medications (Trade) Dose Ordered Sig/Sarita Start Time Stop Time Status Last Admin Dose Admin Acetaminophen/ Hydrocodone Bitart (Lortab 5/325) 2 tab PRN Q4HRS PRN 05/07/20 17:15 05/13/20 23:34 2 TAB Calcitriol (Rocaltrol) 0.75 mcg DAILY 05/16/20 09:00 05/16/20 08:05 0.75 MCG Calcium Carbonate/ Glycine (Oscal) 1,000 mg TID 05/15/20 14:00 05/16/20 08:06 1,000 MG Calcium Gluconate 2000 mg/Sodium Chloride 120 ml @ 240 mls/hr 1X ONCE 05/10/20 16:00 05/10/20 16:29 DC 05/10/20 15:40 240 MLS/HR Calcium Gluconate 4000 mg/Sodium Chloride 1,040 ml @ 75 mls/hr [id number] 05/10/20 16:00 05/13/20 10:34 DC 05/13/20 03:01 75 MLS/HR Cefazolin Sodium/ Dextrose 50 ml @ 100 mls/hr 1X PREOP PRN 05/07/20 06:00 05/07/20 18:00 DC 05/07/20 07:34 100 MLS/HR Cellulose (Surgicel Hemostat 4x8) 1 each STK-MED ONCE 05/07/20 09:41 05/07/20 09:41 DC Dexamethasone Sodium Phosphate (Decadron) 4 mg STK-MED ONCE 05/07/20 07:21 05/07/20 07:21 DC Diphenhydramine HCl (Benadryl) 25 mg PRN QHS PRN 05/08/20 20:15 05/15/20 02:20 25 MG Ephedrine Sulfate (Akovaz) 50 mg STK-MED ONCE 05/07/20 07:58 05/07/20 07:58 DC Fentanyl Citrate (Fentanyl 2ml Vial) 100 mcg STK-MED ONCE 05/07/20 10:46 05/07/20 10:46 DC Hydromorphone HCl (Dilaudid) 0.2 mg PRN Q1HR PRN 05/07/20 10:30 05/08/20 02:14 0.2 MG Levothyroxine Sodium (Synthroid) 100 mcg DAILY06 05/08/20 06:00 05/16/20 05:31 100 MCG Lidocaine HCl (Lidocaine Pf 2% Vial) 5 ml STK-MED ONCE 05/07/20 07:21 05/07/20 07:21 DC Magnesium Oxide (Magnesium Oxide) 400 mg TID 05/14/20 14:00 05/16/20 08:05 400 MG Magnesium Sulfate 50 ml @ 25 mls/hr 1X ONCE 05/12/20 13:00 05/12/20 14:59 DC 05/12/20 12:53 25 MLS/HR Metoclopramide HCl (Reglan Vial) 10 mg 1X ONCE 05/10/20 09:30 05/10/20 09:31 DC 05/10/20 09:35 10 MG Midazolam HCl (Versed) 2 mg STK-MED ONCE 05/07/20 07:30 05/07/20 07:30 DC Morphine Sulfate (Morphine Sulfate) 2 mg STK-MED ONCE 05/07/20 11:20 05/07/20 11:20 DC Naloxone HCl (Narcan) 0.4 mg PRN Q2MIN PRN 05/07/20 10:30 Ondansetron HCl (Zofran) 4 mg PRN Q4HRS PRN 05/07/20 18:30 05/15/20 02:20 4 MG Oxycodone/ Acetaminophen (Percocet 5/325) 2 tab PRN Q4HRS PRN 05/07/20 10:30 05/07/20 17:06 DC Potassium Chloride (Klor-Con) 40 meq 1X ONCE 05/11/20 15:30 05/11/20 15:31 DC 05/11/20 15:47 40 MEQ Prochlorperazine Edisylate (Compazine) 10 mg STK-MED ONCE 05/07/20 10:42 05/07/20 10:42 DC Propofol (Diprivan) 200 mg STK-MED ONCE 05/07/20 07:21 05/07/20 07:21 DC Remifentanil HCl (Ultiva) 2 mg STK-MED ONCE 05/07/20 07:23 05/07/20 07:23 DC Ringer's Solution 1,000 ml @ 30 mls/hr Q24H 05/07/20 07:00 05/07/20 18:59 DC 05/07/20 07:07 30 MLS/HR Sevoflurane (Ultane) 90 ml STK-MED ONCE 05/07/20 10:18 05/07/20 10:18 DC Sodium Chloride 1,000 ml @ 25 mls/hr Q24H 05/07/20 10:30 05/09/20 14:39 DC Sodium Chloride (Normal Saline Flush) 3 ml QSHIFT PRN 05/07/20 10:30 Sodium Chloride (SODIUM CHLORIDE 20ml) 20 ml STK-MED ONCE 05/07/20 07:24 05/07/20 07:25 DC Succinylcholine Chloride (Anectine) 200 mg STK-MED ONCE 05/07/20 07:22 05/07/20 07:22 DC Vitamin D (Vitamin D3) 1,000 unit DAILY 05/08/20 09:00 05/09/20 16:15 DC 05/09/20 09:54 1,000 UNIT Lab Laboratory Tests Test 05/16/20 05:40 Sodium Level 138 mmol/L (136-145) Potassium Level 3.8 mmol/L (3.5-5.1) Chloride Level 102 mmol/L (98-107) Carbon Dioxide Level 27 mmol/L (21-32) Anion Gap 9 (6-14) Blood Urea Nitrogen 20 mg/dL (7-20) Creatinine 0.9 mg/dL (0.6-1.0) Estimated GFR (Cockcroft-Gault) 72.6 BUN/Creatinine Ratio 22 (6-20) Glucose Level 102 mg/dL (70-99) Calcium Level 7.7 mg/dL (8.5-10.1) Magnesium Level 2.1 mg/dL (1.8-2.4) Total Bilirubin 0.4 mg/dL (0.2-1.0) Aspartate Amino Transf (AST/SGOT) 11 U/L (15-37) Alanine Aminotransferase (ALT/SGPT) 22 U/L (14-59) Alkaline Phosphatase 82 U/L (46-116) Total Protein 7.4 g/dL (6.4-8.2) Albumin 3.6 g/dL (3.4-5.0) Albumin/Globulin Ratio 0.9 (1.0-1.7) Results All relevant outside records, renal labs, imaging studies, telemetry/EKG's were reviewed. Justicifation of Admission Dx: Justifications for Admission: Justification of Admission Dx: Yes RAGHAVENDRA BECKWITH MD May 16, 2020 09:28
--- NOTE | 2020-05-16 09:32 | PDOC ---
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 05/16/20 0932: SURGICAL PROGRESS NOTE DATE: 05/16/20 TIME: 09:31 Subjective no complaints some tingling in hands, seems most when using phone, arms bent Vital Signs Vital Signs Date Time Temp Pulse Resp B/P (MAP) Pulse Ox O2 Delivery O2 Flow Rate FiO2 05/16/20 07:00 98.4 72 16 113/63 (80) 99 Room Air 98.4 05/15/20 22:08 6.0 I&O Intake and Output 05/16/20 07:00 Intake Total 240 ml Balance 240 ml Intake Oral 240 ml # Voids 4 General: Alert, Oriented X3, Cooperative HEENT: Other (incision intact) Labs Laboratory Tests Test 05/15/20 06:00 05/16/20 05:40 Sodium Level 138 mmol/L (136-145) 138 mmol/L (136-145) Potassium Level 3.8 mmol/L (3.5-5.1) 3.8 mmol/L (3.5-5.1) Chloride Level 100 mmol/L (98-107) 102 mmol/L (98-107) Carbon Dioxide Level 30 mmol/L (21-32) 27 mmol/L (21-32) Anion Gap 8 (6-14) 9 (6-14) Blood Urea Nitrogen 15 mg/dL (7-20) 20 mg/dL (7-20) Creatinine 0.8 mg/dL (0.6-1.0) 0.9 mg/dL (0.6-1.0) Estimated GFR (Cockcroft-Gault) 83.1 72.6 Glucose Level 85 mg/dL (70-99) 102 mg/dL (70-99) Calcium Level 7.8 mg/dL (8.5-10.1) 7.7 mg/dL (8.5-10.1) Ionized Calcium 0.98 mmol/L (1.13-1.32) Phosphorus Level 6.1 mg/dL (2.6-4.7) Magnesium Level 2.0 mg/dL (1.8-2.4) 2.1 mg/dL (1.8-2.4) Albumin 3.9 g/dL (3.4-5.0) 3.6 g/dL (3.4-5.0) BUN/Creatinine Ratio 22 (6-20) Total Bilirubin 0.4 mg/dL (0.2-1.0) Aspartate Amino Transf (AST/SGOT) 11 U/L (15-37) Alanine Aminotransferase (ALT/SGPT) 22 U/L (14-59) Alkaline Phosphatase 82 U/L (46-116) Total Protein 7.4 g/dL (6.4-8.2) Albumin/Globulin Ratio 0.9 (1.0-1.7) Laboratory Tests Test 05/16/20 05:40 Sodium Level 138 mmol/L (136-145) Potassium Level 3.8 mmol/L (3.5-5.1) Chloride Level 102 mmol/L (98-107) Carbon Dioxide Level 27 mmol/L (21-32) Anion Gap 9 (6-14) Blood Urea Nitrogen 20 mg/dL (7-20) Creatinine 0.9 mg/dL (0.6-1.0) Estimated GFR (Cockcroft-Gault) 72.6 BUN/Creatinine Ratio 22 (6-20) Glucose Level 102 mg/dL (70-99) Calcium Level 7.7 mg/dL (8.5-10.1) Magnesium Level 2.1 mg/dL (1.8-2.4) Total Bilirubin 0.4 mg/dL (0.2-1.0) Aspartate Amino Transf (AST/SGOT) 11 U/L (15-37) Alanine Aminotransferase (ALT/SGPT) 22 U/L (14-59) Alkaline Phosphatase 82 U/L (46-116) Total Protein 7.4 g/dL (6.4-8.2) Albumin 3.6 g/dL (3.4-5.0) Albumin/Globulin Ratio 0.9 (1.0-1.7) Problem List ca replacement appreciate renal involvement Justicifation of Admission Dx: Justifications for Admission: Justification of Admission Dx: Yes ELLA BAIRES MD 05/16/20 1319: SURGICAL PROGRESS NOTE Assessment/Plan Agree with above ZENY BURR APRN May 16, 2020 09:32 ELLA BAIRES MD May 16, 2020 13:19
[2020-05-16] MEDS: ENOXAPARIN 40 MG/0.4 ML SYRINGE. SQ SCH (10:00)
--- NOTE | 2020-05-16 10:32 | NUR ---
Pt. refused Lovenox, verbalized understanding of med. Pt. states she would perfer to amublate more often.
[2020-05-16 11:00] VITALS: BP 118/64
--- NOTE | 2020-05-16 11:58 | NUR ---
ADOLFO Lion notified of pt's c/o L chest "discomfort". she stated she would place orders.
[2020-05-16 12:46] LABS: CREATINE KINASE 37 U/L (26-192); MYOGLOBIN 17 ng/mL (9-82)
--- NOTE | 2020-05-16 12:54 | RAD ---
XR CHEST 1V 05/16/2020 12:19 PM INDICATION: Chest pain COMPARISON: None available TECHNIQUE: Portable frontal view of the chest is provided. FINDINGS: The cardiomediastinal silhouette is within normal limits. Lungs are clear. There are no significant pleural effusions. There is no pulmonary vascular congestion. No pneumothora x. No suspicious osseous abnormality. IMPRESSION: There is no acute cardiopulmonary process. Electronically signed by: Cintia Palafox MD (05/16/2020 12:51 PM) [facility]
--- NOTE | 2020-05-16 14:05 | EKG ---
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
[2020-05-16 15:00] VITALS: BP 127/84
--- NOTE | 2020-05-16 15:31 | PDOC2 ---
CARDIAC CONSULT DATE OF CONSULT Date of Consult DATE: 05/16/20 TIME: 14:59 REASON FOR CONSULT Reason for Consult: Chest pain REFERRING PHYSICIAN Referring Physician: Nickel SOURCE Source: Chart review, Patient HISTORY OF PRESENT ILLNESS HISTORY OF PRESENT ILLNESS This is a pleasant 30 yo female admitted for planned surgery. she is significant for right thyroid nodule with possible malignancy and had total thyroidectomy on 05/07/2020. She tolerated the procedure.well. Post operatively she developed lyte imbalance with symptoms of numbness and cramps prompting consultation with nephrology. This was then corrected via lyte replacements. Reports that she has been having this mid chest going to left chest pain sharp/dull in consistency behind her breast that is worse when she is laying flat and better when up. This is not reproducible with palpation. Also with bilateral trapezius ridge discomfort. This is not exacerbated by arm ROM and no chest pain during ambulation. No ANNCE. Denies any nausea or vomiting. No heartburn. No SOA and her CXR is unremarkable. NO recent falls or injury and no palpitations. PAST MEDICAL HISTORY Past Medical History Hypothyroidism, Emy thyroiditis, recent covid-19 PAST SURGICAL HISTORY Past Surgical History: FAMILY HISTORY Family History noncontributory to CV SOCIAL HISTORY Smoke: No ALCOHOL: occassional Drugs: None Lives: with Family CURRENT MEDICATIONS CURRENT MEDICATIONS Current Medications Medications (Trade) Dose Ordered Sig/Sarita Route PRN Reason Start Time Stop Time Status Last Admin Dose Admin Calcitriol (Rocaltrol) 0.75 mcg DAILY PO 05/16/20 09:00 05/16/20 08:05 ALLERGIES ALLERGIES: Coded Allergies: oxycodone (Verified Allergy, Intermediate, VOMITING, 05/07/20) ROS Review of System 14 point ROS evaluated with pertinent positives noted per HPI PHYSICAL EXAM General: Alert, Oriented X3, Cooperative, No acute distress HEENT: Atraumatic, Mucous membr. moist/pink, Other (neck surgical incision D/I) Lungs: Clear to auscultation, Normal air movement Heart: Regular rate, Normal S1, Normal S2, No murmurs, Other (was not able to auscultate any gross pericardial friction rub) Abdomen: Soft, No tenderness Extremities: No cyanosis, No edema Skin: No breakdown, No significant lesion Neuro: Normal speech, Sensation intact Psych/Mental Status: Mental status NL, Mood NL MUSCULOSKELETAL: Full range of motion without pain VITALS/I&O VITALS/I&O: Vital Signs Date Time Temp Pulse Resp B/P (MAP) Pulse Ox O2 Delivery O2 Flow Rate FiO2 05/16/20 11:00 98.4 70 18 118/64 (82) 98 Room Air 98.4 05/15/20 22:08 6.0 I & O0 05/15/20 05/15/20 05/16/20 15:00 23:00 07:00 Intake Total 240 ml Balance 240 ml LABS Lab: Laboratory Tests Test 05/16/20 05:40 Sodium Level 138 mmol/L (136-145) Potassium Level 3.8 mmol/L (3.5-5.1) Chloride Level 102 mmol/L (98-107) Carbon Dioxide Level 27 mmol/L (21-32) Anion Gap 9 (6-14) Blood Urea Nitrogen 20 mg/dL (7-20) Creatinine 0.9 mg/dL (0.6-1.0) Estimated GFR (Cockcroft-Gault) 72.6 BUN/Creatinine Ratio 22 (6-20) H Glucose Level 102 mg/dL (70-99) H Calcium Level 7.7 mg/dL (8.5-10.1) L Magnesium Level 2.1 mg/dL (1.8-2.4) Total Bilirubin 0.4 mg/dL (0.2-1.0) Aspartate Amino Transferase (AST) 11 U/L (15-37) L Alanine Aminotransferase (ALT) 22 U/L (14-59) Alkaline Phosphatase 82 U/L (46-116) Creatine Kinase 37 U/L (26-192) Myoglobin 17 ng/mL (9-82) Total Protein 7.4 g/dL (6.4-8.2) Albumin 3.6 g/dL (3.4-5.0) Albumin/Globulin Ratio 0.9 (1.0-1.7) L Laboratory Tests 05/16/20 05:40 ASSESSMENT/PLAN ASSESSMENT/PLAN 1. S/P total thyroidectomy with associated thyroid nodule with possible malignancy 2. Hypocalcemia/hypomagnesemia/hypokalemia: replaced, managed by nephrology 3. Atypical chest pain. EKG with RAD and early repolarization otherwise NSR, doubt ACS. Appears to be pleuritic triggered by supine positioning 4. Recent covid-19: initially 04/10/2020 + and then + still on 05/02/2020 5. DLP 6. Metabolic syndrome Recommendations 1. Differentials include muscle spasm secondary to hypocalcemia vs strain vs hyperacute stage of pericarditis. Awaiting CBC and CRP. No diffuse ST elevation but she did have recent viral infection and positive for trapezius ridge pain which is pathognomic to pericarditis. Continue to replace Ca per nephrology. Await CRP and if this high then will consider starting on routine NSAIDs. Meantime will provide with toradol x1 and ibuprofen PRN for now. 2. Dietitian consult. Diet modification 3. Continue post op care CATRACHITO SRIVASTAVA APRN May 16, 2020 15:31
[2020-05-16 15:32] LABS: CHOLESTEROL/HDL RATIO 3.9
[2020-05-16 15:45] LABS: BASO # 0.1 x10^3/uL (0.0-0.2); BASO % 1 % (0-3); EOS # 0.2 x10^3/uL (0.0-0.7); EOS % 3 % (0-3); HEMATOCRIT 40.5 % (36.0-47.0); HEMOGLOBIN 13.4 g/dL (12.0-15.5); LYMPH # 1.7 x10^3/uL (1.0-4.8); LYMPH % 27 % (24-48); MEAN CORPUSCULAR HEMOGLOBIN 31 pg (25-35); MEAN CORPUSCULAR HGB CONC 33 g/dL (31-37); MEAN CORPUSCULAR VOLUME 92 fL (79-100); MONO # 0.6 x10^3/uL (0.0-1.1); MONO % 9 % (0-9); NEUT # 3.9 x10^3/uL (1.8-7.7); NEUT % 61 % (31-73); PLATELET COUNT 369 x10^3/uL (140-400); RED CELL DISTRIBUTION WIDTH 13.5 % (11.5-14.5); WHITE BLOOD COUNT 6.5 x10^3/uL (4.0-11.0)
[2020-05-16] MEDS ORDERED: KETOROLAC 15 MG/ML VIAL. IVP ONE (17:00)
[2020-05-16 19:00] VITALS: BP 111/73
[2020-05-16 23:00] VITALS: BP 110/60
[2020-05-16] MEDS ORDERED: IBUPROFEN 200 MG TABLET. PO PRN (23:00)
[2020-05-17] VITALS (7 sets, daily range): BP systolic 92–143; BP diastolic 45–89
[2020-05-17] MEDS: HYDROcodone/APAP 5/325MG 1 TAB TABLET PO PRN ×3 (00:42→23:01)
[2020-05-17] MEDS: LEVOTHYROXINE 100 MCG TABLET PO SCH (06:10)
[2020-05-17] MEDS: CALCITRIOL 0.25 MCG CAPSULE. PO SCH (09:39)
[2020-05-17] MEDS: MAGNESIUM OXIDE 400 MG TABLET PO SCH ×3 (09:39→20:11)
[2020-05-17] MEDS: CALCIUM CARBONATE 500 MG TABLET PO SCH ×3 (09:39→20:11)
[2020-05-17] MEDS: ENOXAPARIN 40 MG/0.4 ML SYRINGE. SQ SCH (09:47)
--- NOTE | 2020-05-17 10:47 | PDOC ---
PROGRESS NOTES Date of Service DATE: 05/17/20 TIME: 10:45 Subjective Subjective pt feeling ok, voice strong; some tingling R hand, no more chest pain Objective Objective Vital Signs Date Time Temp Pulse Resp B/P (MAP) Pulse Ox O2 Delivery O2 Flow Rate FiO2 05/17/20 07:40 98.4 70 18 92/54 (67) 100 Room Air 98.4 05/15/20 22:08 6.0 Intake and Output 05/17/20 07:00 Intake Total 950 ml Balance 950 ml Intake Oral 950 ml # Voids 10 # Bowel Movements 1 Physical Exam Physical Exam neck incision healing well Assessment Assessment S/P thyroidectomy for papillary thyroid carcinoma, hashimotos thyroiditis Plan Plan of Care Supportive care; plan discharge when ok with Renal and stable on po calcium; appreciate cardiology input Comment Review of Relevant I have reviewed the following items bong (where applicable) has been applied. Labs Laboratory Tests Test 05/16/20 05:40 05/16/20 15:15 05/17/20 06:42 White Blood Count 6.5 x10^3/uL (4.0-11.0) Red Blood Count 4.40 x10^6/uL (3.50-5.40) Hemoglobin 13.4 g/dL (12.0-15.5) Hematocrit 40.5 % (36.0-47.0) Mean Corpuscular Volume 92 fL (79-100) Mean Corpuscular Hemoglobin 31 pg (25-35) Mean Corpuscular Hemoglobin Concent 33 g/dL (31-37) Red Cell Distribution Width 13.5 % (11.5-14.5) Platelet Count 369 x10^3/uL (140-400) Neutrophils (%) (Auto) 61 % (31-73) Lymphocytes (%) (Auto) 27 % (24-48) Monocytes (%) (Auto) 9 % (0-9) Eosinophils (%) (Auto) 3 % (0-3) Basophils (%) (Auto) 1 % (0-3) Neutrophils # (Auto) 3.9 x10^3/uL (1.8-7.7) Lymphocytes # (Auto) 1.7 x10^3/uL (1.0-4.8) Monocytes # (Auto) 0.6 x10^3/uL (0.0-1.1) Eosinophils # (Auto) 0.2 x10^3/uL (0.0-0.7) Basophils # (Auto) 0.1 x10^3/uL (0.0-0.2) Sodium Level 138 mmol/L (136-145) Potassium Level 3.8 mmol/L (3.5-5.1) Chloride Level 102 mmol/L (98-107) Carbon Dioxide Level 27 mmol/L (21-32) Anion Gap 9 (6-14) Blood Urea Nitrogen 20 mg/dL (7-20) Creatinine 0.9 mg/dL (0.6-1.0) Estimated GFR (Cockcroft-Gault) 72.6 BUN/Creatinine Ratio 22 (6-20) Glucose Level 102 mg/dL (70-99) Calcium Level 7.7 mg/dL (8.5-10.1) Magnesium Level 2.1 mg/dL (1.8-2.4) 2.1 mg/dL (1.8-2.4) Total Bilirubin 0.4 mg/dL (0.2-1.0) Aspartate Amino Transf (AST/SGOT) 11 U/L (15-37) Alanine Aminotransferase (ALT/SGPT) 22 U/L (14-59) Alkaline Phosphatase 82 U/L (46-116) Creatine Kinase 37 U/L (26-192) Myoglobin 17 ng/mL (9-82) Total Protein 7.4 g/dL (6.4-8.2) Albumin 3.6 g/dL (3.4-5.0) Albumin/Globulin Ratio 0.9 (1.0-1.7) Triglycerides Level 165 mg/dL (0-150) Cholesterol Level 240 mg/dL (0-200) LDL Cholesterol, Calculated 145 mg/dL (0-100) VLDL Cholesterol, Calculated 33 mg/dL (0-40) Non-HDL Cholesterol Calculated 178 mg/dL (0-129) HDL Cholesterol 62 mg/dL (40-60) Cholesterol/HDL Ratio 3.9 Troponin I Quantitative < 0.017 ng/mL (0.000-0.055) C-Reactive Protein, Quantitative 1.1 mg/L (0-3.3) Laboratory Tests Test 05/16/20 15:15 05/17/20 06:42 Troponin I Quantitative < 0.017 ng/mL (0.000-0.055) C-Reactive Protein, Quantitative 1.1 mg/L (0-3.3) Magnesium Level 2.1 mg/dL (1.8-2.4) Medications Current Medications Ondansetron HCl (Zofran) 4 mg PRN Q6HRS PRN IV NAUSEA/VOMITING; Start 05/07/20 at 07:00; Stop 05/08/20 at 06:59; Status DC Fentanyl Citrate (Fentanyl 2ml Vial) 25 mcg PRN Q5MIN PRN IV MILD PAIN 1-3; Start 05/07/20 at 07:00; Stop 05/08/20 at 06:59; Status DC Fentanyl Citrate (Fentanyl 2ml Vial) 50 mcg PRN Q5MIN PRN IV MODERATE TO SEVERE PAIN Last administered on 05/07/20at 11:08; Start 05/07/20 at 07:00; Stop 05/08/20 at 06:59; Status DC Morphine Sulfate (Morphine Sulfate) 1 mg PRN Q10MIN PRN IV SEVERE PAIN 7-10 Last administered on 05/07/20at 11:48; Start 05/07/20 at 07:00; Stop 05/08/20 at 06:59; Status DC Ringer's Solution 1,000 ml @ 30 mls/hr Q24H IV Last administered on 05/07/20at 07:07; Start 05/07/20 at 07:00; Stop 05/07/20 at 18:59; Status DC Hydromorphone HCl (Dilaudid) 0.5 mg PRN Q10MIN PRN IV SEV PAIN, Second choice; Start 05/07/20 at 07:00; Stop 05/08/20 at 06:59; Status DC Prochlorperazine Edisylate (Compazine) 5 mg PACU PRN PRN IV NAUSEA, MRX1 Last administered on 05/07/20at 11:17; Start 05/07/20 at 07:00; Stop 05/08/20 at 06:59; Status DC Cefazolin Sodium/ Dextrose 50 ml @ 100 mls/hr 1X PREOP PRN IV PRIOR TO PROCEDURE Last administered on 05/07/20at 07:34; Start 05/07/20 at 06:00; Stop 05/07/20 at 18:00; Status DC Dexamethasone Sodium Phosphate (Decadron) 4 mg STK-MED ONCE .ROUTE ; Start 05/07/20 at 07:21; Stop 05/07/20 at 07:21; Status DC Ondansetron HCl (Zofran) 4 mg STK-MED ONCE .ROUTE ; Start 05/07/20 at 07:21; Stop 05/07/20 at 07:21; Status DC Propofol (Diprivan) 200 mg STK-MED ONCE IV ; Start 05/07/20 at 07:21; Stop 05/07/20 at 07:21; Status DC Lidocaine HCl (Lidocaine Pf 2% Vial) 5 ml STK-MED ONCE .ROUTE ; Start 05/07/20 at 07:21; Stop 05/07/20 at 07:21; Status DC Succinylcholine Chloride (Anectine) 200 mg STK-MED ONCE .ROUTE ; Start 05/07/20 at 07:22; Stop 05/07/20 at 07:22; Status DC Remifentanil HCl (Ultiva) 2 mg STK-MED ONCE IV ; Start 05/07/20 at 07:23; Stop 05/07/20 at 07:23; Status DC Sodium Chloride (SODIUM CHLORIDE 20ml) 20 ml STK-MED ONCE IJ ; Start 05/07/20 at 07:24; Stop 05/07/20 at 07:25; Status DC Sodium Chloride (SODIUM CHLORIDE 20ml) 20 ml STK-MED ONCE IJ ; Start 05/07/20 at 07:24; Stop 05/07/20 at 07:25; Status DC Fentanyl Citrate (Fentanyl 2ml Vial) 100 mcg STK-MED ONCE .ROUTE ; Start 05/07/20 at 07:30; Stop 05/07/20 at 07:30; Status DC Midazolam HCl (Versed) 2 mg STK-MED ONCE .ROUTE ; Start 05/07/20 at 07:30; Stop 05/07/20 at 07:30; Status DC Ephedrine Sulfate (Akovaz) 50 mg STK-MED ONCE .ROUTE ; Start 05/07/20 at 07:58; Stop 05/07/20 at 07:58; Status DC Cellulose (Surgicel Hemostat 4x8) 1 each STK-MED ONCE .ROUTE ; Start 05/07/20 at 09:41; Stop 05/07/20 at 09:41; Status DC Sevoflurane (Ultane) 90 ml STK-MED ONCE IH ; Start 05/07/20 at 10:18; Stop 05/07/20 at 10:18; Status DC Sodium Chloride (Normal Saline Flush) 3 ml QSHIFT PRN IV AFTER MEDS AND BLOOD DRAWS; Start 05/07/20 at 10:30 Sodium Chloride 1,000 ml @ 80 mls/hr [id number] IV Last administered on 05/07/20at 15:23; Start 05/07/20 at 10:30; Stop 05/13/20 at 17:18; Status DC Oxycodone/ Acetaminophen (Percocet 5/325) 1 tab PRN Q4HRS PRN PO MILD PAIN, 1ST CHOICE; Start 05/07/20 at 10:30; Stop 05/07/20 at 17:06; Status DC Oxycodone/ Acetaminophen (Percocet 5/325) 2 tab PRN Q4HRS PRN PO MODERATE PAIN, SEVERE PAIN; Start 05/07/20 at 10:30; Stop 05/07/20 at 17:06; Status DC Naloxone HCl (Narcan) 0.4 mg PRN Q2MIN PRN IV SEE INSTRUCTIONS; Start 05/07/20 at 10:30 Sodium Chloride 1,000 ml @ 25 mls/hr Q24H IV ; Start 05/07/20 at 10:30; Stop 05/09/20 at 14:39; Status DC Hydromorphone HCl (Dilaudid) 0.2 mg PRN Q1HR PRN IV PAIN Last administered on 05/08/20at 02:14; Start 05/07/20 at 10:30 Ondansetron HCl (Zofran) 4 mg PRN Q6HRS PRN IVP NAUESA, 1ST CHOICE Last administered on 05/07/20at 13:31; Start 05/07/20 at 10:30; Stop 05/07/20 at 18:24; Status DC Vitamin D (Vitamin D3) 1,000 unit DAILY PO Last administered on 05/09/20at 09:54; Start 05/08/20 at 09:00; Stop 05/09/20 at 16:15; Status DC Levothyroxine Sodium (Synthroid) 100 mcg DAILY06 PO Last administered on 05/17/20at 06:10; Start 05/08/20 at 06:00 Prochlorperazine Edisylate (Compazine) 10 mg STK-MED ONCE .ROUTE ; Start 05/07/20 at 10:42; Stop 05/07/20 at 10:42; Status DC Fentanyl Citrate (Fentanyl 2ml Vial) 100 mcg STK-MED ONCE .ROUTE ; Start 05/07/20 at 10:46; Stop 05/07/20 at 10:46; Status DC Morphine Sulfate (Morphine Sulfate) 2 mg STK-MED ONCE .ROUTE ; Start 05/07/20 at 11:20; Stop 05/07/20 at 11:20; Status DC Acetaminophen/ Hydrocodone Bitart (Lortab 5/325) 1 tab PRN Q4HRS PRN PO MODERATE PAIN Last administered on 05/17/20at 00:42; Start 05/07/20 at 17:00 Acetaminophen/ Hydrocodone Bitart (Lortab 5/325) 2 tab PRN Q4HRS PRN PO SEVERE PAIN Last administered on 05/13/20at 23:34; Start 05/07/20 at 17:15 Ondansetron HCl (Zofran) 4 mg PRN Q4HRS PRN IVP NAUESA, 1ST CHOICE Last administered on 05/15/20at 02:20; Start 05/07/20 at 18:30 Diphenhydramine HCl (Benadryl) 25 mg 1X ONCE PO Last administered on 05/07/20at 18:39; Start 05/07/20 at 18:30; Stop 05/07/20 at 18:31; Status DC Calcium Carbonate/ Glycine (Oscal) 500 mg TIDAFTMEAL PO Last administered on 05/13/20at 08:23; Start 05/08/20 at 13:00; Stop 05/13/20 at 10:34; Status DC Calcium Gluconate 2000 mg/Sodium Chloride 120 ml @ 75 mls/hr 1X ONCE IV ; Start 05/08/20 at 16:30; Stop 05/08/20 at 18:05; Status Cancel Calcium Gluconate 2000 mg/Sodium Chloride 1,020 ml @ 75 mls/hr [id number] IV Last administered on 05/09/20at 19:54; Start 05/08/20 at 17:00; Stop 05/10/20 at 15:18 ; Status DC Diphenhydramine HCl (Benadryl) 25 mg PRN QHS PRN PO INSOMNIA Last administered on 05/15/20at 02:20; Start 05/08/20 at 20:15 Potassium Chloride (Klor-Con) 20 meq 1X ONCE PO Last administered on 05/09/20at 17:20; Start 05/09/20 at 16:15; Stop 05/09/20 at 16:18; Status DC Calcitriol (Rocaltrol) 0.5 mcg DAILY PO Last administered on 05/15/20at 08:16; Start 05/10/20 at 09:00; Stop 05/15/20 at 09:15; Status DC Metoclopramide HCl (Reglan Vial) 10 mg 1X ONCE IVP Last administered on 05/10/20at 09:35; Start 05/10/20 at 09:30; Stop 05/10/20 at 09:31; Status DC Magnesium Sulfate 50 ml @ 25 mls/hr 1X ONCE IV Last administered on 05/10/20at 17:47; Start 05/10/20 at 15:30; Stop 05/10/20 at 17:29; Status DC Calcium Gluconate 2000 mg/Sodium Chloride 120 ml @ 240 mls/hr 1X ONCE IV Last administered on 05/10/20at 15:40; Start 05/10/20 at 16:00; Stop 05/10/20 at 16:29; Status DC Calcium Gluconate 4000 mg/Sodium Chloride 1,040 ml @ 75 mls/hr [id number] IV Last administered on 05/13/20at 03:01; Start 05/10/20 at 16:00; Stop 05/13/20 at 10:34; Status DC Potassium Chloride (Klor-Con) 40 meq 1X ONCE PO Last administered on 05/10/20at 17:46; Start 05/10/20 at 16:00; Stop 05/10/20 at 16:01; Status DC Magnesium Sulfate 50 ml @ 25 mls/hr 1X ONCE IV Last administered on 05/11/20at 15:46; Start 05/11/20 at 15:30; Stop 05/11/20 at 17:29; Status DC Potassium Chloride (Klor-Con) 40 meq 1X ONCE PO Last administered on 05/11/20at 15:47; Start 05/11/20 at 15:30; Stop 05/11/20 at 15:31; Status DC Magnesium Sulfate 50 ml @ 25 mls/hr 1X ONCE IV Last administered on 05/12/20at 12:53; Start 05/12/20 at 13:00; Stop 05/12/20 at 14:59; Status DC Calcium Carbonate/ Glycine (Oscal) 1,000 mg BIDAFTMEAL PO Last administered on 05/15/20at 08:16; Start 05/13/20 at 18:00; Stop 05/15/20 at 09:12; Status DC Calcium Carbonate/ Glycine (Oscal) 500 mg DAILYWLUN PO Last administered on 05/14/20at 11:47; Start 05/13/20 at 12:00; Stop 05/15/20 at 09:12; Status DC Magnesium Oxide (Magnesium Oxide) 400 mg TID PO Last administered on 05/17/20at 09:39; Start 05/14/20 at 14:00 Calcium Carbonate/ Glycine (Oscal) 1,000 mg TID PO Last administered on 05/17/20at 09:39; Start 05/15/20 at 14:00 Calcitriol (Rocaltrol) 0.75 mcg DAILY PO Last administered on 05/17/20at 09:39; Start 05/16/20 at 09:00 Enoxaparin Sodium (Lovenox 40mg Syringe) 40 mg Q24H SQ ; Start 05/16/20 at 10:00 Ketorolac Tromethamine (Toradol 15mg Vial) 30 mg 1X ONCE IVP Last administered on 05/16/20at 18:00; Start 05/16/20 at 17:00; Stop 05/16/20 at 17:01; Status DC Ibuprofen (Motrin) 600 mg PRN Q6HRS PRN PO INFLAMMATION; Start 05/16/20 at 23:00 Active Scripts Active Hydrocodone-Apap 5-325 (Hydrocodone Bit/Acetaminophen) 1 Tab Tablet 1 Tab PO PRN Q4HRS PRN Reported Vitamin D3 (Cholecalciferol (Vitamin D3)) 100 Mcg Capsule 100 Mcg PO DAILY Levothyroxine Sodium 25 Mcg Tablet 25 Mcg PO DAILYAC Vitals/I & O Vital Sign - Last 24 Hours 05/16/20 05/16/20 05/16/20 05/16/20 11:00 15:00 19:00 20:00 Temp 98.4 98.5 99.0 98.4 98.5 99.0 Pulse 70 88 89 Resp 18 18 18 B/P (MAP) 118/64 (82) 127/84 (98) 111/73 (86) Pulse Ox 98 98 98 O2 Delivery Room Air Room Air Room Air Room Air 05/16/20 05/17/20 05/17/20 05/17/20 23:00 00:42 02:23 03:00 Temp 98.3 97.8 98.3 97.8 Pulse 81 87 Resp 18 16 14 18 B/P (MAP) 110/60 (77) 94/45 (61) Pulse Ox 97 97 O2 Delivery Room Air Room Air Room Air Room Air 05/17/20 05/17/20 07:00 07:40 Temp 98.4 98.4 98.4 98.4 Pulse 67 70 Resp 18 18 B/P (MAP) 138/57 (84) 92/54 (67) Pulse Ox 95 100 O2 Delivery Room Air Room Air Intake and Output 05/16/20 05/16/20 05/17/20 15:00 23:00 07:00 Intake Total 950 ml Balance 950 ml Justifications for Admission Other Justification ELLA BAIRES MD May 17, 2020 10:47
--- NOTE | 2020-05-17 15:13 | PDOC ---
PROGRESS NOTES Date of Service DATE: 05/17/20 TIME: 15:11 Subjective Subjective SEEN IN FOLLOW UP OF HYPOCA++ POST PARATHYROIDECTOMY Objective Objective Vital Signs Date Time Temp Pulse Resp B/P (MAP) Pulse Ox O2 Delivery O2 Flow Rate FiO2 05/17/20 14:52 Room Air 05/17/20 11:00 98.4 72 20 102/61 (75) 98 98.4 05/15/20 22:08 6.0 Intake and Output 05/17/20 07:00 Intake Total 950 ml Balance 950 ml Intake Oral 950 ml # Voids 10 # Bowel Movements 1 Physical Exam Abdomen: Normal bowel sounds, Soft, No tenderness, No hepatosplenomegaly, No masses Heart: Regular rate, Normal S1, Normal S2, No murmurs, Gallops Extremities: No clubbing, No cyanosis, No edema, Normal pulses, No tenderness/swelling General: Alert, Oriented X3, Cooperative, No acute distress Psych/Mental Status: Mental status NL, Mood NL Diagnosis Other HYPOCALCEMIA Plan Plan of Care CONT CA++ AND VIT D. LIKELY HOME TOMORROW OR TUESDAY IF STABLE Comment Review of Relevant I have reviewed the following items bong (where applicable) has been applied. Labs Laboratory Tests Test 05/16/20 05:40 05/16/20 15:15 05/17/20 06:42 White Blood Count 6.5 x10^3/uL (4.0-11.0) Red Blood Count 4.40 x10^6/uL (3.50-5.40) Hemoglobin 13.4 g/dL (12.0-15.5) Hematocrit 40.5 % (36.0-47.0) Mean Corpuscular Volume 92 fL (79-100) Mean Corpuscular Hemoglobin 31 pg (25-35) Mean Corpuscular Hemoglobin Concent 33 g/dL (31-37) Red Cell Distribution Width 13.5 % (11.5-14.5) Platelet Count 369 x10^3/uL (140-400) Neutrophils (%) (Auto) 61 % (31-73) Lymphocytes (%) (Auto) 27 % (24-48) Monocytes (%) (Auto) 9 % (0-9) Eosinophils (%) (Auto) 3 % (0-3) Basophils (%) (Auto) 1 % (0-3) Neutrophils # (Auto) 3.9 x10^3/uL (1.8-7.7) Lymphocytes # (Auto) 1.7 x10^3/uL (1.0-4.8) Monocytes # (Auto) 0.6 x10^3/uL (0.0-1.1) Eosinophils # (Auto) 0.2 x10^3/uL (0.0-0.7) Basophils # (Auto) 0.1 x10^3/uL (0.0-0.2) Sodium Level 138 mmol/L (136-145) Potassium Level 3.8 mmol/L (3.5-5.1) Chloride Level 102 mmol/L (98-107) Carbon Dioxide Level 27 mmol/L (21-32) Anion Gap 9 (6-14) Blood Urea Nitrogen 20 mg/dL (7-20) Creatinine 0.9 mg/dL (0.6-1.0) Estimated GFR (Cockcroft-Gault) 72.6 BUN/Creatinine Ratio 22 (6-20) Glucose Level 102 mg/dL (70-99) Calcium Level 7.7 mg/dL (8.5-10.1) Magnesium Level 2.1 mg/dL (1.8-2.4) 2.1 mg/dL (1.8-2.4) Total Bilirubin 0.4 mg/dL (0.2-1.0) Aspartate Amino Transf (AST/SGOT) 11 U/L (15-37) Alanine Aminotransferase (ALT/SGPT) 22 U/L (14-59) Alkaline Phosphatase 82 U/L (46-116) Creatine Kinase 37 U/L (26-192) Myoglobin 17 ng/mL (9-82) Total Protein 7.4 g/dL (6.4-8.2) Albumin 3.6 g/dL (3.4-5.0) Albumin/Globulin Ratio 0.9 (1.0-1.7) Triglycerides Level 165 mg/dL (0-150) Cholesterol Level 240 mg/dL (0-200) LDL Cholesterol, Calculated 145 mg/dL (0-100) VLDL Cholesterol, Calculated 33 mg/dL (0-40) Non-HDL Cholesterol Calculated 178 mg/dL (0-129) HDL Cholesterol 62 mg/dL (40-60) Cholesterol/HDL Ratio 3.9 Troponin I Quantitative < 0.017 ng/mL (0.000-0.055) C-Reactive Protein, Quantitative 1.1 mg/L (0-3.3) Laboratory Tests Test 05/16/20 15:15 05/17/20 06:42 Troponin I Quantitative < 0.017 ng/mL (0.000-0.055) C-Reactive Protein, Quantitative 1.1 mg/L (0-3.3) Magnesium Level 2.1 mg/dL (1.8-2.4) Medications Current Medications Ondansetron HCl (Zofran) 4 mg PRN Q6HRS PRN IV NAUSEA/VOMITING; Start 05/07/20 at 07:00; Stop 05/08/20 at 06:59; Status DC Fentanyl Citrate (Fentanyl 2ml Vial) 25 mcg PRN Q5MIN PRN IV MILD PAIN 1-3; Start 05/07/20 at 07:00; Stop 05/08/20 at 06:59; Status DC Fentanyl Citrate (Fentanyl 2ml Vial) 50 mcg PRN Q5MIN PRN IV MODERATE TO SEVERE PAIN Last administered on 05/07/20at 11:08; Start 05/07/20 at 07:00; Stop 05/08/20 at 06:59; Status DC Morphine Sulfate (Morphine Sulfate) 1 mg PRN Q10MIN PRN IV SEVERE PAIN 7-10 Last administered on 05/07/20at 11:48; Start 05/07/20 at 07:00; Stop 05/08/20 at 06:59; Status DC Ringer's Solution 1,000 ml @ 30 mls/hr Q24H IV Last administered on 05/07/20at 07:07; Start 05/07/20 at 07:00; Stop 05/07/20 at 18:59; Status DC Hydromorphone HCl (Dilaudid) 0.5 mg PRN Q10MIN PRN IV SEV PAIN, Second choice; Start 05/07/20 at 07:00; Stop 05/08/20 at 06:59; Status DC Prochlorperazine Edisylate (Compazine) 5 mg PACU PRN PRN IV NAUSEA, MRX1 Last administered on 05/07/20at 11:17; Start 05/07/20 at 07:00; Stop 05/08/20 at 06:59; Status DC Cefazolin Sodium/ Dextrose 50 ml @ 100 mls/hr 1X PREOP PRN IV PRIOR TO PROCEDURE Last administered on 05/07/20at 07:34; Start 05/07/20 at 06:00; Stop 05/07/20 at 18:00; Status DC Dexamethasone Sodium Phosphate (Decadron) 4 mg STK-MED ONCE .ROUTE ; Start 05/07/20 at 07:21; Stop 05/07/20 at 07:21; Status DC Ondansetron HCl (Zofran) 4 mg STK-MED ONCE .ROUTE ; Start 05/07/20 at 07:21; Stop 05/07/20 at 07:21; Status DC Propofol (Diprivan) 200 mg STK-MED ONCE IV ; Start 05/07/20 at 07:21; Stop 05/07/20 at 07:21; Status DC Lidocaine HCl (Lidocaine Pf 2% Vial) 5 ml STK-MED ONCE .ROUTE ; Start 05/07/20 at 07:21; Stop 05/07/20 at 07:21; Status DC Succinylcholine Chloride (Anectine) 200 mg STK-MED ONCE .ROUTE ; Start 05/07/20 at 07:22; Stop 05/07/20 at 07:22; Status DC Remifentanil HCl (Ultiva) 2 mg STK-MED ONCE IV ; Start 05/07/20 at 07:23; Stop 05/07/20 at 07:23; Status DC Sodium Chloride (SODIUM CHLORIDE 20ml) 20 ml STK-MED ONCE IJ ; Start 05/07/20 at 07:24; Stop 05/07/20 at 07:25; Status DC Sodium Chloride (SODIUM CHLORIDE 20ml) 20 ml STK-MED ONCE IJ ; Start 05/07/20 at 07:24; Stop 05/07/20 at 07:25; Status DC Fentanyl Citrate (Fentanyl 2ml Vial) 100 mcg STK-MED ONCE .ROUTE ; Start 05/07/20 at 07:30; Stop 05/07/20 at 07:30; Status DC Midazolam HCl (Versed) 2 mg STK-MED ONCE .ROUTE ; Start 05/07/20 at 07:30; Stop 05/07/20 at 07:30; Status DC Ephedrine Sulfate (Akovaz) 50 mg STK-MED ONCE .ROUTE ; Start 05/07/20 at 07:58; Stop 05/07/20 at 07:58; Status DC Cellulose (Surgicel Hemostat 4x8) 1 each STK-MED ONCE .ROUTE ; Start 05/07/20 at 09:41; Stop 05/07/20 at 09:41; Status DC Sevoflurane (Ultane) 90 ml STK-MED ONCE IH ; Start 05/07/20 at 10:18; Stop 05/07/20 at 10:18; Status DC Sodium Chloride (Normal Saline Flush) 3 ml QSHIFT PRN IV AFTER MEDS AND BLOOD DRAWS; Start 05/07/20 at 10:30 Sodium Chloride 1,000 ml @ 80 mls/hr [id number] IV Last administered on 05/07/20at 15:23; Start 05/07/20 at 10:30; Stop 05/13/20 at 17:18; Status DC Oxycodone/ Acetaminophen (Percocet 5/325) 1 tab PRN Q4HRS PRN PO MILD PAIN, 1ST CHOICE; Start 05/07/20 at 10:30; Stop 05/07/20 at 17:06; Status DC Oxycodone/ Acetaminophen (Percocet 5/325) 2 tab PRN Q4HRS PRN PO MODERATE PAIN, SEVERE PAIN; Start 05/07/20 at 10:30; Stop 05/07/20 at 17:06; Status DC Naloxone HCl (Narcan) 0.4 mg PRN Q2MIN PRN IV SEE INSTRUCTIONS; Start 05/07/20 at 10:30 Sodium Chloride 1,000 ml @ 25 mls/hr Q24H IV ; Start 05/07/20 at 10:30; Stop 05/09/20 at 14:39; Status DC Hydromorphone HCl (Dilaudid) 0.2 mg PRN Q1HR PRN IV PAIN Last administered on 05/08/20at 02:14; Start 05/07/20 at 10:30 Ondansetron HCl (Zofran) 4 mg PRN Q6HRS PRN IVP NAUESA, 1ST CHOICE Last administered on 05/07/20at 13:31; Start 05/07/20 at 10:30; Stop 05/07/20 at 18:24; Status DC Vitamin D (Vitamin D3) 1,000 unit DAILY PO Last administered on 05/09/20at 09:54; Start 05/08/20 at 09:00; Stop 05/09/20 at 16:15; Status DC Levothyroxine Sodium (Synthroid) 100 mcg DAILY06 PO Last administered on 05/17/20at 06:10; Start 05/08/20 at 06:00 Prochlorperazine Edisylate (Compazine) 10 mg STK-MED ONCE .ROUTE ; Start 05/07/20 at 10:42; Stop 05/07/20 at 10:42; Status DC Fentanyl Citrate (Fentanyl 2ml Vial) 100 mcg STK-MED ONCE .ROUTE ; Start 05/07/20 at 10:46; Stop 05/07/20 at 10:46; Status DC Morphine Sulfate (Morphine Sulfate) 2 mg STK-MED ONCE .ROUTE ; Start 05/07/20 at 11:20; Stop 05/07/20 at 11:20; Status DC Acetaminophen/ Hydrocodone Bitart (Lortab 5/325) 1 tab PRN Q4HRS PRN PO MODERATE PAIN Last administered on 05/17/20at 14:52; Start 05/07/20 at 17:00 Acetaminophen/ Hydrocodone Bitart (Lortab 5/325) 2 tab PRN Q4HRS PRN PO SEVERE PAIN Last administered on 05/13/20at 23:34; Start 05/07/20 at 17:15 Ondansetron HCl (Zofran) 4 mg PRN Q4HRS PRN IVP NAUESA, 1ST CHOICE Last administered on 05/15/20at 02:20; Start 05/07/20 at 18:30 Diphenhydramine HCl (Benadryl) 25 mg 1X ONCE PO Last administered on 05/07/20at 18:39; Start 05/07/20 at 18:30; Stop 05/07/20 at 18:31; Status DC Calcium Carbonate/ Glycine (Oscal) 500 mg TIDAFTMEAL PO Last administered on 05/13/20at 08:23; Start 05/08/20 at 13:00; Stop 05/13/20 at 10:34; Status DC Calcium Gluconate 2000 mg/Sodium Chloride 120 ml @ 75 mls/hr 1X ONCE IV ; Start 05/08/20 at 16:30; Stop 05/08/20 at 18:05; Status Cancel Calcium Gluconate 2000 mg/Sodium Chloride 1,020 ml @ 75 mls/hr [id number] IV Last administered on 05/09/20at 19:54; Start 05/08/20 at 17:00; Stop 05/10/20 at 15:18; Status DC Diphenhydramine HCl (Benadryl) 25 mg PRN QHS PRN PO INSOMNIA Last administered on 05/15/20at 02:20; Start 05/08/20 at 20:15 Potassium Chloride (Klor-Con) 20 meq 1X ONCE PO Last administered on 05/09/20at 17:20; Start 05/09/20 at 16:15; Stop 05/09/20 at 16:18; Status DC Calcitriol (Rocaltrol) 0.5 mcg DAILY PO Last administered on 05/15/20at 08:16; Start 05/10/20 at 09:00; Stop 05/15/20 at 09:15; Status DC Metoclopramide HCl (Reglan Vial) 10 mg 1X ONCE IVP Last administered on 05/10/20at 09:35; Start 05/10/20 at 09:30; Stop 05/10/20 at 09:31; Status DC Magnesium Sulfate 50 ml @ 25 mls/hr 1X ONCE IV Last administered on 05/10/20at 17:47; Start 05/10/20 at 15:30; Stop 05/10/20 at 17:29; Status DC Calcium Gluconate 2000 mg/Sodium Chloride 120 ml @ 240 mls/hr 1X ONCE IV Last administered on 05/10/20at 15:40; Start 05/10/20 at 16:00; Stop 05/10/20 at 16:29; Status DC Calcium Gluconate 4000 mg/Sodium Chloride 1,040 ml @ 75 mls/hr [id number] IV Last administered on 05/13/20at 03:01; Start 05/10/20 at 16:00; Stop 05/13/20 at 10:34; Status DC Potassium Chloride (Klor-Con) 40 meq 1X ONCE PO Last administered on 05/10/20at 17:46; Start 05/10/20 at 16:00; Stop 05/10/20 at 16:01; Status DC Magnesium Sulfate 50 ml @ 25 mls/hr 1X ONCE IV Last administered on 05/11/20at 15:46; Start 05/11/20 at 15:30; Stop 05/11/20 at 17:29; Status DC Potassium Chloride (Klor-Con) 40 meq 1X ONCE PO Last administered on 05/11/20at 15:47; Start 05/11/20 at 15:30; Stop 05/11/20 at 15:31; Status DC Magnesium Sulfate 50 ml @ 25 mls/hr 1X ONCE IV Last administered on 05/12/20at 12:53; Start 05/12/20 at 13:00; Stop 05/12/20 at 14:59; Status DC Calcium Carbonate/ Glycine (Oscal) 1,000 mg BIDAFTMEAL PO Last administered on 05/15/20at 08:16; Start 05/13/20 at 18:00; Stop 05/15/20 at 09:12; Status DC Calcium Carbonate/ Glycine (Oscal) 500 mg DAILYWLUN PO Last administered on 05/14/20at 11:47; Start 05/13/20 at 12:00; Stop 05/15/20 at 09:12; Status DC Magnesium Oxide (Magnesium Oxide) 400 mg TID PO Last administered on 05/17/20at 14:49; Start 05/14/20 at 14:00 Calcium Carbonate/ Glycine (Oscal) 1,000 mg TID PO Last administered on 05/17/20at 14:49; Start 05/15/20 at 14:00 Calcitriol (Rocaltrol) 0.75 mcg DAILY PO Last administered on 05/17/20at 09:39; Start 05/16/20 at 09:00 Enoxaparin Sodium (Lovenox 40mg Syringe) 40 mg Q24H SQ ; Start 05/16/20 at 10:00 Ketorolac Tromethamine (Toradol 15mg Vial) 30 mg 1X ONCE IVP Last administered on 05/16/20at 18:00; Start 05/16/20 at 17:00; Stop 05/16/20 at 17:01; Status DC Ibuprofen (Motrin) 600 mg PRN Q6HRS PRN PO INFLAMMATION; Start 05/16/20 at 23:00 Active Scripts Active Hydrocodone-Apap 5-325 (Hydrocodone Bit/Acetaminophen) 1 Tab Tablet 1 Tab PO PRN Q4HRS PRN Reported Vitamin D3 (Cholecalciferol (Vitamin D3)) 100 Mcg Capsule 100 Mcg PO DAILY Levothyroxine Sodium 25 Mcg Tablet 25 Mcg PO DAILYAC Vitals/I & O Vital Sign - Last 24 Hours 05/16/20 05/16/20 05/16/20 05/17/20 19:00 20:00 23:00 00:42 Temp 99.0 98.3 99.0 98.3 Pulse 89 81 Resp 18 18 16 B/P (MAP) 111/73 (86) 110/60 (77) Pulse Ox 98 97 O2 Delivery Room Air Room Air Room Air Room Air 05/17/20 05/17/20 05/17/20 05/17/20 02:23 03:00 07:00 07:40 Temp 97.8 98.4 98.4 97.8 98.4 98.4 Pulse 87 67 70 Resp 14 18 18 18 B/P (MAP) 94/45 (61) 138/57 (84) 92/54 (67) Pulse Ox 97 95 100 O2 Delivery Room Air Room Air Room Air Room Air 05/17/20 05/17/20 05/17/20 08:00 11:00 14:52 Temp 98.4 98.4 Pulse 72 Resp 20 B/P (MAP) 102/61 (75) Pulse Ox 98 O2 Delivery Room Air Room Air Room Air Intake and Output 05/16/20 05/16/20 05/17/20 15:00 23:00 07:00 Intake Total 950 ml Balance 950 ml Justifications for Admission Other Justification SACHA CESAR MD May 17, 2020 15:13
--- NOTE | 2020-05-17 16:32 | PDOC ---
CARDIOLOGY PROGRESS NOTE SUBJECTIVE: No new events. Doing well overall. Planned for discharge soon. No more chest pain. OBJECTIVE: Vital Signs/I&O: Vital Signs Date Time Temp Pulse Resp B/P (MAP) Pulse Ox O2 Delivery O2 Flow Rate FiO2 05/17/20 15:52 Room Air 05/17/20 15:09 98.0 75 16 132/68 (89) 97 98.0 I & O 05/16/20 05/16/20 05/17/20 15:00 23:00 07:00 Intake Total 950 ml Balance 950 ml Objective: normal cardiac exam. CURRENT MEDICATIONS: Current Medications Medications (Trade) Dose Ordered Sig/Sarita Route PRN Reason Start Time Stop Time Status Last Admin Dose Admin Ketorolac Tromethamine (Toradol 15mg Vial) 30 mg 1X ONCE IVP 05/16/20 17:00 05/16/20 17:01 DC 05/16/20 18:00 DIAGNOSTIC TESTING: Crp negative ekg negative Labs: Laboratory Tests Test 05/17/20 15:30 Ionized Calcium 1.11 mmol/L (1.13-1.32) L ASSESSMENT: 1. Non-cardiac chest pain; PLAN: 1. supportive care. No further cardiac testing needed. Cardiac Exam, EKG, trop, CRP all w/in normal limits. If chest pain persisent on an outpt basis, consider echo. Thanks Justicifation of Admission Dx: Justifications for Admission: Justification of Admission Dx: Yes LIZ SANDERS MD May 17, 2020 16:32
[2020-05-18 03:00] VITALS: BP 127/67
[2020-05-18] MEDS: LEVOTHYROXINE 100 MCG TABLET PO SCH (06:14)
[2020-05-18 07:00] VITALS: BP 108/68
[2020-05-18] MEDS: ENOXAPARIN 40 MG/0.4 ML SYRINGE. SQ SCH (07:32)
[2020-05-18 07:49] LABS: ALBUMIN 3.5 g/dL (3.4-5.0); CALCIUM 7.9 mg/dL (8.5-10.1); CREATININE 0.8 mg/dL (0.6-1.0); GFR 83.1; PHOSPHORUS 6.2 mg/dL (2.6-4.7); POTASSIUM 3.7 mmol/L (3.5-5.1); TOTAL BILIRUBIN 0.5 mg/dL (0.2-1.0)
[2020-05-18] MEDS: MAGNESIUM OXIDE 400 MG TABLET PO SCH ×3 (09:13→20:13)
[2020-05-18] MEDS: CALCITRIOL 0.25 MCG CAPSULE. PO SCH (09:13)
[2020-05-18] MEDS: CALCIUM CARBONATE 500 MG TABLET PO SCH ×3 (09:13→20:13)
[2020-05-18 11:00] VITALS: BP 125/80
[2020-05-18 15:00] VITALS: BP 122/73
[2020-05-18] MEDS: HYDROcodone/APAP 5/325MG 1 TAB TABLET PO PRN (15:01)
[2020-05-18 19:00] VITALS: BP 132/70
[2020-05-18 22:46] VITALS: BP 103/64
[2020-05-19] MEDS: HYDROcodone/APAP 5/325MG 1 TAB TABLET PO PRN (01:32)
[2020-05-19 02:52] VITALS: BP 108/60
[2020-05-19] MEDS: LEVOTHYROXINE 100 MCG TABLET PO SCH (05:47)
[2020-05-19 07:33] VITALS: BP 94/45
[2020-05-19] MEDS: ENOXAPARIN 40 MG/0.4 ML SYRINGE. SQ SCH (08:29)
[2020-05-19] MEDS: CALCITRIOL 0.25 MCG CAPSULE. PO SCH (08:29)
[2020-05-19] MEDS: MAGNESIUM OXIDE 400 MG TABLET PO SCH ×2 (08:29→14:30)
[2020-05-19] MEDS: CALCIUM CARBONATE 500 MG TABLET PO SCH ×2 (08:29→14:30)
--- NOTE | 2020-05-19 09:25 | NUR ---
SW following. Discussed with RN, pt from home, room air, GI soft. Pt will discharge home when labs are stable. No SW needs. SW will continue to follow.
--- NOTE | 2020-05-19 09:35 | PDOC ---
ZENY BURR [place] [employer] 05/19/20 0935: SURGICAL PROGRESS NOTE DATE: 05/19/20 TIME: 09:35 Subjective tolerating diet minimal pain Vital Signs Vital Signs Date Time Temp Pulse Resp B/P (MAP) Pulse Ox O2 Delivery O2 Flow Rate FiO2 05/19/20 07:33 98.4 97 16 94/45 (61) 94 Room Air 98.4 I&O Intake and Output 05/19/20 07:00 Intake Total 600 ml Balance 600 ml Intake Oral 600 ml # Voids 3 General: Alert, Oriented X3, Cooperative HEENT: Other (incision intact, healing ) Labs Laboratory Tests Test 05/17/20 15:30 05/18/20 05:40 Ionized Calcium 1.11 mmol/L (1.13-1.32) Sodium Level 139 mmol/L (136-145) Potassium Level 3.7 mmol/L (3.5-5.1) Chloride Level 102 mmol/L (98-107) Carbon Dioxide Level 27 mmol/L (21-32) Anion Gap 10 (6-14) Blood Urea Nitrogen 17 mg/dL (7-20) Creatinine 0.8 mg/dL (0.6-1.0) Estimated GFR (Cockcroft-Gault) 83.1 BUN/Creatinine Ratio 21 (6-20) Glucose Level 78 mg/dL (70-99) Calcium Level 7.9 mg/dL (8.5-10.1) Phosphorus Level 6.2 mg/dL (2.6-4.7) Total Bilirubin 0.5 mg/dL (0.2-1.0) Aspartate Amino Transf (AST/SGOT) 12 U/L (15-37) Alanine Aminotransferase (ALT/SGPT) 24 U/L (14-59) Alkaline Phosphatase 73 U/L (46-116) Total Protein 7.0 g/dL (6.4-8.2) Albumin 3.5 g/dL (3.4-5.0) Albumin/Globulin Ratio 1.0 (1.0-1.7) Assessment/Plan await renal input, labs Justicifation of Admission Dx: Justifications for Admission: Justification of Admission Dx: Yes ELLA BAIRES MD 05/19/20 1025: SURGICAL PROGRESS NOTE Assessment/Plan Agree with above ZENY BURR [employer] May 19, 2020 09:35 ELLA BAIRES MD May 19, 2020 10:25
[2020-05-19 11:00] VITALS: BP 109/48
[2020-05-19 11:08] LABS: ALBUMIN 3.7 g/dL (3.4-5.0); CALCIUM 8.3 mg/dL (8.5-10.1); CREATININE 0.8 mg/dL (0.6-1.0); GFR 83.1; POTASSIUM 3.5 mmol/L (3.5-5.1); TOTAL BILIRUBIN 0.6 mg/dL (0.2-1.0); TOTAL PROTEIN 7.4 g/dL (6.4-8.2)
--- NOTE | 2020-05-19 13:50 | PDOC ---
DATE OF SERVICE DATE: 05/19/20 TIME: 13:36 SUBJECTIVE ROS Seen by card over the weekend for CP Currently No complaints OBJECTIVE Vital Signs Vital Signs Date Time Temp Pulse Resp B/P (MAP) Pulse Ox O2 Delivery O2 Flow Rate FiO2 05/19/20 11:00 98.3 86 16 109/48 (68) 97 Room Air 98.3 I & 0 Intake and Output 05/19/20 06:59 Intake Total 600 ml Balance 600 ml Intake Oral 600 ml # Voids 3 PHYSICAL EXAM Physical Exam General Appearance: no apparent distress, Skin: warm Respiratory: bilateral CTA Heart: S1S2, RRR Abdomen: soft, bowel sounds present Genitourinary: No ignacio Extremities: pulses present Neurology: alert, oriented DIAGNOSIS/ASSESSMENT Assessment & Plan Hypocalcemia - Present post Thyroidectomy , Symptomatic (Carpopedal spasms) ,requiring IV Ca IV Ca dced 05/13 , Increased PO Ca and calcitriol dose on 05/15 , Ca improved, Mildly low .Increase Calcium dose to 1000mg am -1000 afternoon -1500 pm mg QD Can be dced from renal standpoint. She needs to follow with PCP/ Endocrinology and GS post dc . FU Labs- CMP and Mg in 3-4 days with PCP post dc . Dw nursing PTH low @ 4, Check Vit D Hypokalemia- resolved HypoMg- On PO , Monitor S/P Total Thyroidectomy on 05/07 -for right thyroid nodule. 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 On replacement, follow up per GS and primary COMMENT/RELEVANT DATA Meds Current Medications Medications (Trade) Dose Ordered Sig/Sarita Start Time Stop Time Status Last Admin Dose Admin Acetaminophen/ Hydrocodone Bitart (Lortab 5/325) 2 tab PRN Q4HRS PRN 05/07/20 17:15 05/13/20 23:34 2 TAB Calcitriol (Rocaltrol) 0.75 mcg DAILY 05/16/20 09:00 05/19/20 08:29 0.75 MCG Calcium Carbonate/ Glycine (Oscal) 1,000 mg TID 05/15/20 14:00 05/19/20 08:29 1,000 MG Calcium Gluconate 2000 mg/Sodium Chloride 120 ml @ 240 mls/hr 1X ONCE 05/10/20 16:00 05/10/20 16:29 DC 05/10/20 15:40 240 MLS/HR Calcium Gluconate 4000 mg/Sodium Chloride 1,040 ml @ 75 mls/hr [id number] 05/10/20 16:00 05/13/20 10:34 DC 05/13/20 03:01 75 MLS/HR Cefazolin Sodium/ Dextrose 50 ml @ 100 mls/hr 1X PREOP PRN 05/07/20 06:00 05/07/20 18:00 DC 05/07/20 07:34 100 MLS/HR Cellulose (Surgicel Hemostat 4x8) 1 each STK-MED ONCE 05/07/20 09:41 05/07/20 09:41 DC Dexamethasone Sodium Phosphate (Decadron) 4 mg STK-MED ONCE 05/07/20 07:21 05/07/20 07:21 DC Diphenhydramine HCl (Benadryl) 25 mg PRN QHS PRN 05/08/20 20:15 05/15/20 02:20 25 MG Enoxaparin Sodium (Lovenox 40mg Syringe) 40 mg Q24H 05/16/20 10:00 Ephedrine Sulfate (Akovaz) 50 mg STK-MED ONCE 05/07/20 07:58 05/07/20 07:58 DC Fentanyl Citrate (Fentanyl 2ml Vial) 100 mcg STK-MED ONCE 05/07/20 10:46 05/07/20 10:46 DC Hydromorphone HCl (Dilaudid) 0.2 mg PRN Q1HR PRN 05/07/20 10:30 05/08/20 02:14 0.2 MG Ibuprofen (Motrin) 600 mg PRN Q6HRS PRN 05/16/20 23:00 Ketorolac Tromethamine (Toradol 15mg Vial) 30 mg 1X ONCE 05/16/20 17:00 05/16/20 17:01 DC 05/16/20 18:00 30 MG Levothyroxine Sodium (Synthroid) 100 mcg DAILY06 05/08/20 06:00 05/19/20 05:47 100 MCG Lidocaine HCl (Lidocaine Pf 2% Vial) 5 ml STK-MED ONCE 05/07/20 07:21 05/07/20 07:21 DC Magnesium Oxide (Magnesium Oxide) 400 mg TID 05/14/20 14:00 05/19/20 08:29 400 MG Magnesium Sulfate 50 ml @ 25 mls/hr 1X ONCE 05/12/20 13:00 05/12/20 14:59 DC 05/12/20 12:53 25 MLS/HR Metoclopramide HCl (Reglan Vial) 10 mg 1X ONCE 05/10/20 09:30 05/10/20 09:31 DC 05/10/20 09:35 10 MG Midazolam HCl (Versed) 2 mg STK-MED ONCE 05/07/20 07:30 05/07/20 07:30 DC Morphine Sulfate (Morphine Sulfate) 2 mg STK-MED ONCE 05/07/20 11:20 05/07/20 11:20 DC Naloxone HCl (Narcan) 0.4 mg PRN Q2MIN PRN 05/07/20 10:30 Ondansetron HCl (Zofran) 4 mg PRN Q4HRS PRN 05/07/20 18:30 05/15/20 02:20 4 MG Oxycodone/ Acetaminophen (Percocet 5/325) 2 tab PRN Q4HRS PRN 05/07/20 10:30 05/07/20 17:06 DC Potassium Chloride (Klor-Con) 40 meq 1X ONCE 05/11/20 15:30 05/11/20 15:31 DC 05/11/20 15:47 40 MEQ Prochlorperazine Edisylate (Compazine) 10 mg STK-MED ONCE 05/07/20 10:42 05/07/20 10:42 DC Propofol (Diprivan) 200 mg STK-MED ONCE 05/07/20 07:21 05/07/20 07:21 DC Remifentanil HCl (Ultiva) 2 mg STK-MED ONCE 05/07/20 07:23 05/07/20 07:23 DC Ringer's Solution 1,000 ml @ 30 mls/hr Q24H 05/07/20 07:00 05/07/20 18:59 DC 05/07/20 07:07 30 MLS/HR Sevoflurane (Ultane) 90 ml STK-MED ONCE 05/07/20 10:18 05/07/20 10:18 DC Sodium Chloride 1,000 ml @ 25 mls/hr Q24H 05/07/20 10:30 05/09/20 14:39 DC Sodium Chloride (Normal Saline Flush) 3 ml QSHIFT PRN 05/07/20 10:30 Sodium Chloride (SODIUM CHLORIDE 20ml) 20 ml STK-MED ONCE 05/07/20 07:24 05/07/20 07:25 DC Succinylcholine Chloride (Anectine) 200 mg STK-MED ONCE 05/07/20 07:22 05/07/20 07:22 DC Vitamin D (Vitamin D3) 1,000 unit DAILY 05/08/20 09:00 05/09/20 16:15 DC 05/09/20 09:54 1,000 UNIT Lab Laboratory Tests Test 05/19/20 10:20 Sodium Level 137 mmol/L (136-145) Potassium Level 3.5 mmol/L (3.5-5.1) Chloride Level 100 mmol/L (98-107) Carbon Dioxide Level 27 mmol/L (21-32) Anion Gap 10 (6-14) Blood Urea Nitrogen 14 mg/dL (7-20) Creatinine 0.8 mg/dL (0.6-1.0) Estimated GFR (Cockcroft-Gault) 83.1 BUN/Creatinine Ratio 18 (6-20) Glucose Level 130 mg/dL (70-99) Calcium Level 8.3 mg/dL (8.5-10.1) Total Bilirubin 0.6 mg/dL (0.2-1.0) Aspartate Amino Transf (AST/SGOT) 14 U/L (15-37) Alanine Aminotransferase (ALT/SGPT) 27 U/L (14-59) Alkaline Phosphatase 73 U/L (46-116) Total Protein 7.4 g/dL (6.4-8.2) Albumin 3.7 g/dL (3.4-5.0) Albumin/Globulin Ratio 1.0 (1.0-1.7) Results All relevant outside records, renal labs, imaging studies, telemetry/EKG's were reviewed. Justicifation of Admission Dx: Justifications for Admission: Justification of Admission Dx: Yes RAGHAVENDRA BECKWITH MD May 19, 2020 13:50
[2020-05-19] MEDS ORDERED: CALC0.25 PO (14:25)
[2020-05-19] MEDS ORDERED: LEVO100T5 PO (14:25)
[2020-05-19] MEDS ORDERED: MAGN400T44 PO (14:25)
[2020-05-19 15:00] VITALS: BP 114/85
--- NOTE | 2020-05-19 16:18 | NUR ---
Calcium Carbonate 1000mg q am, 1000mg q afternoon and 1500mg q pm #60 called to pt's pharmacy.
--- NOTE | 2020-05-19 17:59 | NUR ---
Pt. discharged to home, verbalized understanding of discharge instructions. Neck incision CDI, ROBERTA.
--- NOTE | 2020-05-20 12:26 | PDOC3 ---
Discharge Summary Visit Information Date of Admission: May 09, 2020 Date of Discharge: May 19, 2020 Admitting Diagnosis: right thyroid nodule Final Diagnosis right thyroid nodule Brief Hospital Course Allergies Allergies Coded Allergies Type Severity Reaction Last Updated Verified oxycodone Allergy Intermediate VOMITING 05/07/20 Yes Vital Signs Vital Signs Date Time Temp Pulse Resp B/P (MAP) Pulse Ox O2 Delivery O2 Flow Rate FiO2 05/19/20 15:00 98.1 102 19 114/85 (95) 97 Room Air 98.1 Lab Results Laboratory Tests Test 05/19/20 10:20 Sodium Level 137 mmol/L (136-145) Potassium Level 3.5 mmol/L (3.5-5.1) Chloride Level 100 mmol/L (98-107) Carbon Dioxide Level 27 mmol/L (21-32) Anion Gap 10 (6-14) Blood Urea Nitrogen 14 mg/dL (7-20) Creatinine 0.8 mg/dL (0.6-1.0) Estimated GFR (Cockcroft-Gault) 83.1 BUN/Creatinine Ratio 18 (6-20) Glucose Level 130 mg/dL (70-99) Calcium Level 8.3 mg/dL (8.5-10.1) Total Bilirubin 0.6 mg/dL (0.2-1.0) Aspartate Amino Transf (AST/SGOT) 14 U/L (15-37) Alanine Aminotransferase (ALT/SGPT) 27 U/L (14-59) Alkaline Phosphatase 73 U/L (46-116) Total Protein 7.4 g/dL (6.4-8.2) Albumin 3.7 g/dL (3.4-5.0) Albumin/Globulin Ratio 1.0 (1.0-1.7) Brief Hospital Course Ms. Garcia is a 30 old female who underwent Total thyroidectomy with central compartment dissection.. Postoperatively tolerating diet, pain managed, ambulating independently. She did have hypocalcemia, hypomagnesmia, that needed ongoing treatment and close observation. At discharge labs stable. She will FU in clinic and with PCP, endocrine for ongoing management Discharge Information Condition at Discharge: Stable Follow Up: Weeks (2) Disposition/Orders: D/C to Home Scheduled Calcitriol (Calcitriol) 0.25 Mcg Capsule, 0.75 MCG PO DAILY for vit d, #30 Prescribed by: Zeny Conn on 05/19/20 1425 Levothyroxine Sodium (Levothyroxine Sodium) 100 Mcg Tablet, 100 MCG PO DAILY06 for hypothryoid, #30 Prescribed by: Zeny Conn on 05/19/20 1425 Magnesium Oxide (Magnesium Oxide) 400 Mg Tablet, 400 MG PO TID for hypomag for 30 Days, #30 Prescribed by: Zeny Conn on 05/19/20 1425 Scheduled PRN Hydrocodone Bit/Acetaminophen (Hydrocodone-Apap 5-325 ) 1 Tab Tablet, 1 TAB PO PRN Q4HRS PRN for MODERATE PAIN, #30 Ref 0 Prescribed by: Zeny Conn on 05/08/20 1000 Discontinued Medications Cholecalciferol (Vitamin D3) (Vitamin D3) 100 Mcg Capsule, 100 MCG PO DAILY for vitamin, (Reported) Entered as Reported by: HANS BLACK on 05/05/20 1134 Last Action: Converted on 05/07/20 1021 by ELLA BAIRES Levothyroxine Sodium (Levothyroxine Sodium) 25 Mcg Tablet, 25 MCG PO DAILYAC for THYROID SUPPLEMENT, #30 Ref 0 (Reported) Entered as Reported by: HANS BLACK on 05/05/20 113 Last Taken: Unknown Dose on 05/07/20 0530 Last Action: HELD on 05/07/20 1021 by ELLA BAIRES Justicifation of Admission Dx: Justifications for Admission: Justification of Admission Dx: Yes ZENY CONN APRN May 20, 2020 12:26
== END 2020-05-19 18:12 | disposition home or self-care (01) | DRG 627 ==
LOC: SURG 06:20 → 4 NORTH 10:16 → OBSVTOIN 05-09 12:00
PROVIDERS: ADMIT Surgery; ATTEND Surgery
PROC: 0GBJ0ZZ Excision of Thyroid Gland Isthmus, Open Approach (ICD-10-PCS; 2020-05-07)
PROC: 0GTK0ZZ Resection of Thyroid Gland, Open Approach (ICD-10-PCS; principal; 2020-05-07 07:30)
DX: C73 Malignant neoplasm of thyroid gland (principal); E20.9 Hypoparathyroidism, unspecified; E87.6 Hypokalemia; E88.81 Metabolic syndrome and other insulin resistance; Z82.49 Family history of ischemic heart disease and other diseases of the circulatory system; R07.89 Other chest pain; Z20.822 Contact with and (suspected) exposure to COVID-19; E66.9 Obesity, unspecified; Z68.31 Body mass index [BMI] 31.0-31.9, adult
CPT/HCPCS: 36415; 71045; 80048; 80053; 80061; 80069; 81025; 82310; 82550; 83735; 83874; 83970; 84100; 84484; 85025; 86140; 88305; 88307; 88331; 93005; G0378; G0379; J0330; J0610; J0690; J0780; J1100; J1170; J1885; J2250; J2270; J2405; J2704; J2765; J3010; J3475; J3490; J7030; J7120; Q0163

== ENCOUNTER 2020-06-08 15:02 | Inpatient (IN) | payer BC ==
[~2020-06-08] VITALS: Ht 157.5 cm; Wt 85.0 kg
[~2020-06-08 15:02] MED LIST changes: +CALC0.25 PO; +HYDR-2761 PO; +LEVO100T5 PO; +MAGN400T44 PO
--- NOTE | 2020-06-08 15:37 | PHYS DOC ---
Past Medical History Past Medical History: Hypothyroid Past Surgical History: No Surgical History Smoking Status: Never Smoker Alcohol Use: None Drug Use: None General Adult EDM: Chief Complaint: HYPERVENTILATION HPI: HPI: 30 yo F past medical history of thyroid cancer with resection (on levothyroxine) complicated with removal of 3 of 4 parathyroid glands, presents to the ED with complaints of painful muscle spasms to both hands stating " my calcium is low again." Patient takes calcium supplementation. States she ate at a restaurant with her family and since then has had multiple episodes of nonbloody nonbilious vomiting and loose watery diarrhea-other family members with same symptoms. Has not been able to keep anything down. Review of Systems: Review of Systems: Constitutional: Denies fever or chills. [] Eyes: Denies change in visual acuity. [] HENT: Denies nasal congestion or sore throat. [] Respiratory: Denies cough or shortness of breath. [] Cardiovascular: Denies chest pain or edema. [] GI: Denies abdominal pain, nausea, vomiting, bloody stools or diarrhea. [] : Denies dysuria. [] Musculoskeletal: Denies back pain or joint swelling Integument: Denies rash. [] Neurologic: Denies headache, focal weakness or sensory changes. [] Endocrine: Denies polyuria or polydipsia. [] Lymphatic: Denies swollen glands. [] Psychiatric: Denies depression or anxiety. [] Heart Score: Risk Factors: Risk Factors: DM, Current or recent (<one month) smoker, HTN, HLP, family history of CAD, obesity. Risk Scores: Score 0 - 3: 2.5% MACE over next 6 weeks - Discharge Home Score 4 - 6: 20.3% MACE over next 6 weeks - Admit for Clinical Observation Score 7 - 10: 72.7% MACE over next 6 weeks - Early Invasive Strategies Allergies: Allergies: Allergies Coded Allergies Type Severity Reaction Last Updated Verified oxycodone Allergy Intermediate VOMITING 05/07/20 Yes Physical Exam: PE: Constitutional: Well developed, well nourished, in pain HENT: Normocephalic, atraumatic, no chvosteks sign Eyes: EOMI, conjunctiva normal, no discharge. Neck: Normal range of motion, supple, Cardiovascular: S1/2 present, regular rhythm Lungs & Thorax: Speaking in full sentences, bilateral equal chest rise, no tachypnea or increased work of breathing Abdomen: soft, no tenderness, Skin: Warm, dry, no erythema, no rash. [] Extremities: no cyanosis, bilateral hands with carpopedal spasms Neurologic: Alert and oriented X 3, normal motor function, normal sensory function, no focal deficits noted. [] Psychologic: Affect normal, judgement normal, mood normal. [] EKG: EKG: [] Radiology/Procedures: Radiology/Procedures: [] Course & Med Decision Making: Course & Med Decision Making Pertinent Labs and Imaging studies reviewed. (See chart for details) Concern for symptomatic hypocalcemia and hypomagnesemia similar to May 19 presentation when she was admitted. Replacement started in the ED. Significant relief with Valium. Will admit for further medical management. Patient stable at time of admission and her and her agree with this plan. I have spoken with the patient and/or caregivers. I have explained the patient's condition, diagnosis and treatment plan based on the information available to me at this time. I have answered the patient's and/or caregivers questions and answered any concerns. The patient and/or caregivers have as good an understanding of the patient's diagnosis, condition and treatment plan as can be expected at this point. The patient has been stabilized within the capability of the emergency department. The patient will be transported for further care and management or will be moved to an observation or inpatient service. I have communicated with the staff or medical practitioner taking over this patient's care. Dhruv Disclaimer: Dhruv Disclaimer: This electronic medical record was generated, in whole or in part, using a voice recognition dictation system. Departure Departure Impression: Primary Impression: Hypocalcemia Additional Impression: Hypomagnesemia Disposition: ADMITTED INPT THIS HOSP Admitting Physician: CHELSEY (Dr. Santoyo) Condition: STABLE Referrals: KAMLA PLATT MD (PCP) ALLIE MOYA DO Jun 08, 2020 15:37
[2020-06-08] MEDS ORDERED: FAMOTIDINE 20 MG/2 ML VIAL IVP ONE (15:45)
[2020-06-08] MEDS ORDERED: diazePAM 5 MG TABLET PO ONE (15:45)
[2020-06-08] MEDS ORDERED: ONDANSETRON PF 4 MG/2 ML VIAL. IVP ONE (15:45)
[2020-06-08 15:57] LABS: BASO % 0 % (0-3); EOS % 0 % (0-3); HEMATOCRIT 38.8 % (36.0-47.0); HEMOGLOBIN 13.4 g/dL (12.0-15.5); LYMPH # 0.7 x10^3/uL (1.0-4.8); LYMPH % 6 % (24-48); MEAN CORPUSCULAR HEMOGLOBIN 31 pg (25-35); MEAN CORPUSCULAR HGB CONC 35 g/dL (31-37); MEAN CORPUSCULAR VOLUME 90 fL (79-100); MONO # 0.5 x10^3/uL (0.0-1.1); MONO % 4 % (0-9); NEUT # 10.5 x10^3/uL (1.8-7.7); NEUT % 89 % (31-73); PLATELET COUNT 303 x10^3/uL (140-400); RED CELL DISTRIBUTION WIDTH 13.3 % (11.5-14.5); WHITE BLOOD COUNT 11.7 x10^3/uL (4.0-11.0)
[2020-06-08 16:06] LABS: CALCIUM 7.8 mg/dL (8.5-10.1); CREATININE 0.7 mg/dL (0.6-1.0); POTASSIUM 3.7 mmol/L (3.5-5.1)
[2020-06-08 16:11] LABS: BARBITURATES NEG (NEG); BENZODIAZEPINES NEG (NEG); CANNABINOIDS POS (NEG); COCAINE NEG (NEG); METHADONE NEG (NEG); OPIATES NEG (NEG); PHENCYCLIDINE NEG (NEG)
[2020-06-08 16:12] LABS: AMPHETAMINE/METHAMPHETAMINE NEG (NEG)
[2020-06-08 16:18] LABS: ALBUMIN 4.2 g/dL (3.4-5.0); MAGNESIUM 1.7 mg/dL (1.8-2.4); PHOSPHORUS 2.9 mg/dL (2.6-4.7); TOTAL PROTEIN 8.3 g/dL (6.4-8.2)
[2020-06-08 17:05] LABS: % BANDS 1 % (0-9); % LYMPHS 6 % (24-48); % MONOS 4 % (0-10); % SEGS 89 % (35-66)
[2020-06-08 17:06] LABS: PLT ESTIMATE ADEQUATE (ADEQUATE)
[2020-06-08 17:07] LABS: POIKILOCYTOSIS SLIGHT; POLYCHROMASIA OCCASIONAL; STOMATOCYTES FEW; TEAR DROP CELLS OCC
[2020-06-08] MEDS ORDERED: MAGNESIUM SULFATE 2GM 50 ML IV ONE (17:30)
[2020-06-08] MEDS ORDERED: CALCIUM GLUCONATE 1,000 MG/10 ML VIAL. IVP ONE (17:30)
[2020-06-08] MEDS ORDERED: ACETAMINOPHEN 325 MG TABLET. PO PRN (18:15)
[2020-06-08] MEDS ORDERED: ONDANSETRON PF 4 MG/2 ML VIAL. IV PRN (18:15)
[2020-06-08] MEDS ORDERED: CALC500T31 PO ×2 (20:49)
[2020-06-08] MEDS ORDERED: HYDROcodone/APAP 5/325MG 1 TAB TABLET PO PRN (22:15)
[2020-06-08] MEDS ORDERED: diazePAM 5 MG TABLET PO PRN (22:15)
[2020-06-08 23:00] VITALS: BP 140/77
[2020-06-08] MEDS ORDERED: CALCIUM CARBONATE 500 MG TABLET PO SCH (23:00)
[2020-06-08] MEDS ORDERED: NORMAL SALINE IV ONE (23:00)
[2020-06-08] MEDS ORDERED: CALCIUM GLUCONATE IV ONE (23:00)
--- NOTE | 2020-06-08 23:14 | HP ---
ADMIT DATE: 06/08/2020 CHIEF COMPLAINT: Cramping of her hands. HISTORY OF PRESENT ILLNESS: The patient is a pleasant 30-year-old female who had a thyroid resection with 3/4 parathyroid glands removed recently. Now, she has issues with hypocalcemia. She presents with cramps in her legs and her hands and some hyperventilation. We checked her calcium and it is low at 7.8. We gave her some Valium and some calcium. I discussed the case with ER physician. We are going to admit the patient. I am going to give her some more calcium overnight by IV drip and then recheck her calcium in the morning and hope to discharge tomorrow. PAST MEDICAL HISTORY: Hypothyroidism, thyroid resection parathyroid resection, hypocalcemia. ALLERGIES: OXYCODONE. FAMILY HISTORY: Diabetes. SOCIAL HISTORY: She does not drink, smoke or take drugs. MEDICATIONS: Reviewed, please refer to the MRAD. REVIEW OF SYSTEMS: GENERAL: No history of weight change, weakness or fevers. SKIN: No bruising, hair changes or rashes. EYES: No blurred, double or loss of vision. NOSE AND THROAT: No history of nosebleeds, hoarseness or sore throat. HEART: No history of palpitations, chest pain or shortness of breath on exertion. LUNGS: Denies cough, hemoptysis, wheezing or shortness of breath. GASTROINTESTINAL: Denies changes in appetite, nausea, vomiting, diarrhea or constipation. GENITOURINARY: No history of frequency, urgency, hesitancy or nocturia. NEUROLOGIC: Denies history of numbness, tingling, tremor or weakness. PSYCHIATRIC: No history of panic, anxiety or depression. ENDOCRINE: No history of heat or cold intolerance, polyuria or polydipsia. EXTREMITIES: Denies muscle weakness, joint pain, pain on walking or stiffness. PHYSICAL EXAMINATION: VITALS: Within normal limits and are stable. GENERAL: No apparent distress. Alert and oriented. HEENT: Normal cephalic atraumatic, external auditory canals are patent EYES: Extraocular muscles are intact, pupils are equally round and reactive to light and accommodation MUSCULOSKELETAL: Well developed, well nourished, good range of motion. ENDOCRINE: No thyromegaly was palpated. LYMPHATICS: No cervical chain or axillary nodes were noted HEMATOPOIETIC: No bruising. NECK: Supple, no JVD, no thyromegaly was noted. LUNGS: Clear to auscultation in all lung ribera without rhonchi or wheezing. HEART: RRR, S1, S2 present. Peripheral pulses intact, no obvious murmurs were noted. ABDOMEN: Soft, nontender. Positive bowel sounds no organomegaly, normal bowel sounds. EXTREMITIES: Without any cyanosis, clubbing, or edema. Pedal pulses intact, Homans sign is negative. NEUROLOGIC: Normal speech, normal tone. A & O x3, moves all extremities, no obvious focal deficits. PSYCHIATRIC: Normal affect, normal mood. Stable. SKIN: No ulcerations or rashes, good skin turgor, no jaundice. VASCULAR: Good capillary refill, neurovascular bundle appears to be intact. LABORATORY DATA: Calcium was 7.8 on arrival. ASSESSMENT AND PLAN: Hypocalcemia. The patient has been admitted. We have given her an amp of calcium already. We are going to put another amp and some normal saline and run at 75 mL an hour. Recheck her calcium level in the morning. Home meds, DVT prophylaxis. Full code. Hope to discharge tomorrow. CUAUHTEMOC MEJIA DO DR: MARCIANO/shazia JOB#: [id number] / [id number]
[2020-06-09 03:00] VITALS: BP 138/66
[2020-06-09] MEDS ORDERED: LEVOTHYROXINE 100 MCG TABLET PO SCH (06:00)
[2020-06-09 07:00] VITALS: BP 106/70
[2020-06-09 07:48] LABS: ALBUMIN 3.3 g/dL (3.4-5.0); CALCIUM 6.9 mg/dL (8.5-10.1); CREATININE 0.7 mg/dL (0.6-1.0); POTASSIUM 3.3 mmol/L (3.5-5.1); TOTAL PROTEIN 6.6 g/dL (6.4-8.2)
--- NOTE | 2020-06-09 08:42 | PDOC ---
[employer] PROGRESS NOTE Date of Service DOS: DATE: 06/09/20 TIME: 08:38 Chief Complaint Chief Complaint Hypocalcemia. The patient has been admitted. We have given her an amp of calcium already. We are going to put another amp and some normal saline and run at 75 mL an hour. Recheck her calcium level in the morning. Home meds, DVT prophylaxis. Full code. Hope to discharge soon. History of Present Illness History of Present Illness The patient is a pleasant 30-year-old female who had a thyroid resection with 3/4 parathyroid glands removed recently. Now, she has issues with hypocalcemia. She presents with cramps in her legs and her hands and some hyperventilation. We checked her calcium and it is low at 7.8. We gave her some Valium and some calcium. I discussed the case with ER physician. We are going to admit the patient. I am going to give her some more calcium overnight by IV drip and then recheck her calcium in the morning and hope to discharge tomorrow. 06/09/2020 Patient seen and evaluated. Charts, labs, imaging reviewed. Calcium 6.9 today, did not improve with the placement. Will provide calcium gluconate 2 g IV as well as oral calcium replacement. Despite drop in calcium patient noticed resolution of her symptoms. She currently denies muscle cramps or perioral numbness. She is adamant about discharging today if possible, as no one is able to take care of her children at home. Will repeat calcium this afternoon, and consider discharge this evening if there is any noted improvement in calcium. Vitals/I&O Vitals/I&O: Vital Signs Date Time Temp Pulse Resp B/P (MAP) Pulse Ox O2 Delivery O2 Flow Rate FiO2 06/09/20 07:00 98.4 75 16 106/70 (82) 95 Room Air 98.4 I & O 06/08/20 06/08/20 06/09/20 15:00 23:00 07:00 Intake Total 150 ml 700 ml Balance 150 ml 700 ml Physical Exam General: Alert, Oriented X3 Heart: Regular rate Lungs: Clear Abdomen: Normal bowel sounds Extremities: No clubbing Skin: No rashes Labs Labs: Laboratory Tests Test 06/08/20 15:35 06/08/20 15:41 06/08/20 15:47 06/09/20 06:50 Urine Opiates Screen Neg (NEG) Urine Methadone Screen Neg (NEG) Urine Barbiturates Neg (NEG) Urine Phencyclidine Screen Neg (NEG) Urine Amphetamine/Methamphetamine Neg (NEG) Urine Benzodiazepines Screen Neg (NEG) Urine Cocaine Screen Neg (NEG) Urine Cannabinoids Screen Pos (NEG) Urine Ethyl Alcohol Neg (NEG) Bedside Urine HCG, Qualitative Hcg negative (Negative) White Blood Count 11.7 x10^3/uL (4.0-11.0) Red Blood Count 4.30 x10^6/uL (3.50-5.40) Hemoglobin 13.4 g/dL (12.0-15.5) Hematocrit 38.8 % (36.0-47.0) Mean Corpuscular Volume 90 fL (79-100) Mean Corpuscular Hemoglobin 31 pg (25-35) Mean Corpuscular Hemoglobin Concent 35 g/dL (31-37) Red Cell Distribution Width 13.3 % (11.5-14.5) Platelet Count 303 x10^3/uL (140-400) Neutrophils (%) (Auto) 89 % (31-73) Lymphocytes (%) (Auto) 6 % (24-48) Monocytes (%) (Auto) 4 % (0-9) Eosinophils (%) (Auto) 0 % (0-3) Basophils (%) (Auto) 0 % (0-3) Neutrophils # (Auto) 10.5 x10^3/uL (1.8-7.7) Lymphocytes # (Auto) 0.7 x10^3/uL (1.0-4.8) Monocytes # (Auto) 0.5 x10^3/uL (0.0-1.1) Eosinophils # (Auto) 0.0 x10^3/uL (0.0-0.7) Basophils # (Auto) 0.0 x10^3/uL (0.0-0.2) Segmented Neutrophils % 89 % (35-66) Band Neutrophils % 1 % (0-9) Lymphocytes % 6 % (24-48) Monocytes % 4 % (0-10) Platelet Estimate Adequate (ADEQUATE) Polychromasia Occasional Poikilocytosis Slight Tear Drop Cells Occ Stomatocytes Few Sodium Level 137 mmol/L (136-145) 139 mmol/L (136-145) Potassium Level 3.7 mmol/L (3.5-5.1) 3.3 mmol/L (3.5-5.1) Chloride Level 100 mmol/L (98-107) 102 mmol/L (98-107) Carbon Dioxide Level 25 mmol/L (21-32) 30 mmol/L (21-32) Anion Gap 12 (6-14) 7 (6-14) Blood Urea Nitrogen 13 mg/dL (7-20) 11 mg/dL (7-20) Creatinine 0.7 mg/dL (0.6-1.0) 0.7 mg/dL (0.6-1.0) Estimated GFR (Cockcroft-Gault) 97.0 97.0 BUN/Creatinine Ratio 19 (6-20) 16 (6-20) Glucose Level 94 mg/dL (70-99) 104 mg/dL (70-99) Calcium Level 7.8 mg/dL (8.5-10.1) 6.9 mg/dL (8.5-10.1) Phosphorus Level 2.9 mg/dL (2.6-4.7) Magnesium Level 1.7 mg/dL (1.8-2.4) 1.8 mg/dL (1.8-2.4) Total Bilirubin 1.0 mg/dL (0.2-1.0) 1.0 mg/dL (0.2-1.0) Aspartate Amino Transf (AST/SGOT) 33 U/L (15-37) 17 U/L (15-37) Alanine Aminotransferase (ALT/SGPT) 42 U/L (14-59) 33 U/L (14-59) Alkaline Phosphatase 64 U/L (46-116) 52 U/L (46-116) Creatine Kinase 87 U/L (26-192) Total Protein 8.3 g/dL (6.4-8.2) 6.6 g/dL (6.4-8.2) Albumin 4.2 g/dL (3.4-5.0) 3.3 g/dL (3.4-5.0) Albumin/Globulin Ratio 1.0 (1.0-1.7) 1.0 (1.0-1.7) Lipase 69 U/L (73-393) Ethyl Alcohol Level < 10 mg/dL (0-10) Assessment and Plan Assessmemt and Plan Problems Medical Problems: (1) Hypocalcemia Status: Acute (2) Hypomagnesemia Status: Acute Comment Review of Relevant I have reviewed the following items bong (where applicable) has been applied. Medications: Current Medications Medications (Trade) Dose Ordered Sig/Sarita Route PRN Reason Start Time Stop Time Status Last Admin Dose Admin Diazepam (Valium) 10 mg 1X ONCE PO 06/08/20 15:45 06/08/20 15:46 DC 06/08/20 15:52 Ondansetron HCl (Zofran) 8 mg 1X ONCE IVP 06/08/20 15:45 06/08/20 15:46 DC 06/08/20 15:51 Famotidine (Pepcid Vial) 20 mg 1X ONCE IVP 06/08/20 15:45 06/08/20 15:46 DC 06/08/20 15:52 Magnesium Sulfate 50 ml @ 25 mls/hr 1X ONCE IV 06/08/20 17:30 06/08/20 19:29 DC 06/08/20 19:20 Calcium Gluconate (Calcium Gluconate) 1,000 mg 1X ONCE IVP 06/08/20 17:30 06/08/20 17:31 DC 06/08/20 19:18 Calcium Gluconate 1000 mg/Sodium Chloride 1,010 ml @ 75 mls/hr 1X ONCE IV 06/08/20 23:00 06/09/20 12:27 06/08/20 22:55 Calcium Carbonate/ Glycine (Oscal) 1,500 mg HS PO 06/08/20 23:00 06/08/20 22:59 Acetaminophen/ Hydrocodone Bitart (Lortab 5/325) 1 tab PRN Q4HRS PRN PO MODERATE PAIN 06/08/20 22:15 06/08/20 22:57 Levothyroxine Sodium (Synthroid) 100 mcg DAILY06 PO 06/09/20 06:00 06/09/20 06:47 Justifications for Admission Other Justification DAVIDSON FIGUEROA MD Jun 09, 2020 08:42
[2020-06-09] MEDS ORDERED: CALCIUM GLUCONATE 1,000 MG/10 ML VIAL. IVP ONE (08:45)
[2020-06-09] MEDS: CALCIUM CARBONATE 500 MG TABLET PO SCH ×2 (08:50→12:13)
[2020-06-09] MEDS: MAGNESIUM OXIDE 400 MG TABLET PO SCH ×2 (08:50→15:02)
[2020-06-09] MEDS ORDERED: CALCITRIOL 0.25 MCG CAPSULE. PO SCH (09:00)
[2020-06-09] MEDS ORDERED: CALCIUM GLUCONATE 2,000 MG in IV NORMAL SALINE 100ML 100 ML IV ONE (09:30)
[2020-06-09 11:00] VITALS: BP 107/71
[2020-06-09] MEDS ORDERED: CALCIUM CARBONATE 500 MG TABLET PO SCH (13:00)
[2020-06-09 15:00] VITALS: BP 121/79
--- NOTE | 2020-06-09 17:13 | PDOC3 ---
Discharge Summary Visit Information Date of Admission: Jun 08, 2020 Date of Discharge: Jun 09, 2020 Final Diagnosis Problems Medical Problems: (1) Hypocalcemia Status: Acute (2) Hypomagnesemia Status: Acute Brief Hospital Course Allergies Allergies Coded Allergies Type Severity Reaction Last Updated Verified oxycodone Allergy Intermediate VOMITING 05/07/20 Yes Vital Signs Vital Signs Date Time Temp Pulse Resp B/P (MAP) Pulse Ox O2 Delivery O2 Flow Rate FiO2 06/09/20 15:00 98.2 67 18 121/79 (93) 100 Room Air 98.2 Lab Results Laboratory Tests Test 06/08/20 15:35 06/08/20 15:41 06/08/20 15:47 06/09/20 06:50 Urine Opiates Screen Neg (NEG) Urine Methadone Screen Neg (NEG) Urine Barbiturates Neg (NEG) Urine Phencyclidine Screen Neg (NEG) Urine Amphetamine/Methamphetamine Neg (NEG) Urine Benzodiazepines Screen Neg (NEG) Urine Cocaine Screen Neg (NEG) Urine Cannabinoids Screen Pos (NEG) Urine Ethyl Alcohol Neg (NEG) Bedside Urine HCG, Qualitative Hcg negative (Negative) White Blood Count 11.7 x10^3/uL (4.0-11.0) Red Blood Count 4.30 x10^6/uL (3.50-5.40) Hemoglobin 13.4 g/dL (12.0-15.5) Hematocrit 38.8 % (36.0-47.0) Mean Corpuscular Volume 90 fL (79-100) Mean Corpuscular Hemoglobin 31 pg (25-35) Mean Corpuscular Hemoglobin Concent 35 g/dL (31-37) Red Cell Distribution Width 13.3 % (11.5-14.5) Platelet Count 303 x10^3/uL (140-400) Neutrophils (%) (Auto) 89 % (31-73) Lymphocytes (%) (Auto) 6 % (24-48) Monocytes (%) (Auto) 4 % (0-9) Eosinophils (%) (Auto) 0 % (0-3) Basophils (%) (Auto) 0 % (0-3) Neutrophils # (Auto) 10.5 x10^3/uL (1.8-7.7) Lymphocytes # (Auto) 0.7 x10^3/uL (1.0-4.8) Monocytes # (Auto) 0.5 x10^3/uL (0.0-1.1) Eosinophils # (Auto) 0.0 x10^3/uL (0.0-0.7) Basophils # (Auto) 0.0 x10^3/uL (0.0-0.2) Segmented Neutrophils % 89 % (35-66) Band Neutrophils % 1 % (0-9) Lymphocytes % 6 % (24-48) Monocytes % 4 % (0-10) Platelet Estimate Adequate (ADEQUATE) Polychromasia Occasional Poikilocytosis Slight Tear Drop Cells Occ Stomatocytes Few Sodium Level 137 mmol/L (136-145) 139 mmol/L (136-145) Potassium Level 3.7 mmol/L (3.5-5.1) 3.3 mmol/L (3.5-5.1) Chloride Level 100 mmol/L (98-107) 102 mmol/L (98-107) Carbon Dioxide Level 25 mmol/L (21-32) 30 mmol/L (21-32) Anion Gap 12 (6-14) 7 (6-14) Blood Urea Nitrogen 13 mg/dL (7-20) 11 mg/dL (7-20) Creatinine 0.7 mg/dL (0.6-1.0) 0.7 mg/dL (0.6-1.0) Estimated GFR (Cockcroft-Gault) 97.0 97.0 BUN/Creatinine Ratio 19 (6-20) 16 (6-20) Glucose Level 94 mg/dL (70-99) 104 mg/dL (70-99) Calcium Level 7.8 mg/dL (8.5-10.1) 6.9 mg/dL (8.5-10.1) Phosphorus Level 2.9 mg/dL (2.6-4.7) Magnesium Level 1.7 mg/dL (1.8-2.4) 1.8 mg/dL (1.8-2.4) Total Bilirubin 1.0 mg/dL (0.2-1.0) 1.0 mg/dL (0.2-1.0) Aspartate Amino Transf (AST/SGOT) 33 U/L (15-37) 17 U/L (15-37) Alanine Aminotransferase (ALT/SGPT) 42 U/L (14-59) 33 U/L (14-59) Alkaline Phosphatase 64 U/L (46-116) 52 U/L (46-116) Creatine Kinase 87 U/L (26-192) Total Protein 8.3 g/dL (6.4-8.2) 6.6 g/dL (6.4-8.2) Albumin 4.2 g/dL (3.4-5.0) 3.3 g/dL (3.4-5.0) Albumin/Globulin Ratio 1.0 (1.0-1.7) 1.0 (1.0-1.7) Lipase 69 U/L (73-393) Ethyl Alcohol Level < 10 mg/dL (0-10) Test 06/09/20 15:10 06/09/20 16:00 Calcium Level 7.5 mg/dL (8.5-10.1) Ionized Calcium 1.05 mmol/L (1.13-1.32) Laboratory Tests Test 06/09/20 06:50 06/09/20 15:10 06/09/20 16:00 Sodium Level 139 mmol/L (136-145) Potassium Level 3.3 mmol/L (3.5-5.1) Chloride Level 102 mmol/L (98-107) Carbon Dioxide Level 30 mmol/L (21-32) Anion Gap 7 (6-14) Blood Urea Nitrogen 11 mg/dL (7-20) Creatinine 0.7 mg/dL (0.6-1.0) Estimated GFR (Cockcroft-Gault) 97.0 BUN/Creatinine Ratio 16 (6-20) Glucose Level 104 mg/dL (70-99) Calcium Level 6.9 mg/dL (8.5-10.1) 7.5 mg/dL (8.5-10.1) Magnesium Level 1.8 mg/dL (1.8-2.4) Total Bilirubin 1.0 mg/dL (0.2-1.0) Aspartate Amino Transf (AST/SGOT) 17 U/L (15-37) Alanine Aminotransferase (ALT/SGPT) 33 U/L (14-59) Alkaline Phosphatase 52 U/L (46-116) Total Protein 6.6 g/dL (6.4-8.2) Albumin 3.3 g/dL (3.4-5.0) Albumin/Globulin Ratio 1.0 (1.0-1.7) Ionized Calcium 1.05 mmol/L (1.13-1.32) Brief Hospital Course Ms. Garcia is a 30 old female who presented with hypocalcemia, hypomagnesemia. Electrolytes were replaced. She reported improvement in her symptoms of cramping and perioral paresthesia. Her repeat potassium upon discharge was 7.5 milligrams per deciliter, which corrects to 8.1 mg/dL. Patient states that she can follow-up with her PCP within the next 5 to 7 days. Discharge Information Condition at Discharge: Improved Follow Up: Weeks Disposition/Orders: D/C to Home Scheduled Calcitriol (Calcitriol) 0.25 Mcg Capsule, 0.75 MCG PO DAILY for vit d, #30 Prescribed by: Amisha Conn on 05/19/201424 Last Action: Continued on 06/08/202204 by FRANCISCO JAVIER AVILA Calcium Carbonate (Calcium Carbonate) 500 Mg Tablet, 1,000 MG PO [id number] for hypocalcemia, (Reported) Entered as Reported by: FRANCISCO JAVIER AVILA on 06/08/202048 Last Action: Continued on 06/08/202204 by FRANCISCO JAVIER AVILA Calcium Carbonate (Calcium Carbonate) 500 Mg Tablet, 1,500 MG PO HS for hypoc alcemia, (Reported) Entered as Reported by: FRANCISCO JAVIER AVILA on 06/08/202048 Last Action: Continued on 06/08/202204 by FRANCISCO JAVIER AVILA Levothyroxine Sodium (Levothyroxine Sodium) 100 Mcg Tablet, 100 MCG PO DAILY06 for hypothryoid, #30 Prescribed by: Amisha Conn on 05/19/201424 Last Action: Continued on 06/08/202204 by FRANCISCO JAVIER AVILA Magnesium Oxide (Magnesium Oxide) 400 Mg Tablet, 400 MG PO TID for hypomag for 30 Days, #30 Prescribed by: Amisha Conn on 05/19/201424 Last Action: Converted on 06/08/202204 by FRANCISCO JAVIER AVILA Scheduled PRN Hydrocodone Bit/Acetaminophen (Hydrocodone-Apap 5-325 ) 1 Tab Tablet, 1 TAB PO PRN Q4HRS PRN for MODERATE PAIN, #30 Ref 0 Prescribed by: Amisha Conn on 05/08/20 1000 Last Action: Continued on 06/08/202204 by FRANCISCO JAVIER AVILA Justicifation of Admission Dx: Justifications for Admission: Justification of Admission Dx: Yes DAVIDSON FIGUEROA MD Jun 09, 2020 17:13
== END 2020-06-09 18:59 | disposition home or self-care (01) | DRG 641 ==
LOC: ER 15:02 → 4 NORTH 19:24
PROVIDERS: ADMIT Internal Medicine; ATTEND Internal Medicine
DX: E83.51 Hypocalcemia (principal); R19.7 Diarrhea, unspecified; M62.838 Other muscle spasm; R06.4 Hyperventilation; E89.0 Postprocedural hypothyroidism; E83.42 Hypomagnesemia; Z83.3 Family history of diabetes mellitus; Z85.850 Personal history of malignant neoplasm of thyroid; Z88.5 Allergy status to narcotic agent
CPT/HCPCS: 36415; 80053; 80307; 81025; 82310; 82550; 83690; 83735; 84100; 85007; 85025; 96365; 96375; G0480; J0610; J2405; J3475; J3490; J7030; 99285-25; G0378